=== PATIENT | female | born 1970 | race Caucasian/White ===

== ENCOUNTER → 2017-09-06 | Emergency (ER) | payer OTHER, MEDICARE, MEDICAID ==
[~2017-09-06] VITALS: Ht 167.6 cm; Wt 54.4 kg
[~2017-09-06] MED LIST: ALBUTEROL2.5 MG/NEB IN; AMANTADINE HCL100 MG PO; BACTRIM DS 8001 TA1 PO; BENADRYL 25MG C25 MG PO; CITALOPRAM20 MG PO; CITALOPRAM40 MG PO; CLARITIN 10MG T10 MG PO; CLEOCIN HCL300 MG PO; DEPO-PROVER150 MG/M1 IM; DOCUSATE SODIUM1 TAB PO; GAVISCON 6180 ML/BOT PO; IMODIUM 2MG. CAP2 MG PO; MIRALAX17 GM/PACK PO; MULTI VITAMINS1 TA1 PO; ONDANSETRON8 M1 PO; PHENERGAN 25MG.25 M1 PO; PRILOSEC40 MG PO; RISPERDAL0.5 MG PO; SENNA LAXATIVE8.6 MG PO; TRAMADOL 50MG T50 M1 PO; XENAZINE25 MG PO; ZANTAC 150150 MG PO
--- NOTE | 2017-09-06 21:47 | Emergency Room Report ---
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 N Clinical Suspician of Infection? N Mental Status: 1 - Regular (Normal Baseline) Sepsis Risk:Low Sepsis Risk Have you (or family members/close friends) recently traveled outside the [place]? N If Yes, where/when: Have you had exposure to infectious disease within the past month? N TB? Other? Specify: ALLERGIES Coded Allergies: codeine (I-RASH 05/07/16) Home Medications Active Scripts Clindamycin Hcl (Cleocin 300MG Capsule) 300 MG PO TID #30 CAP Prov: 05/11/16 SULFAMETHOXAZOLE W/TRIMETHOPRI (Bactrim Ds Tab) 1 TAB PO BID #20 TAB Prov: 05/11/16 Risperidone (Risperdal) 1 MG PO BID #60 TAB Ref 1 Prov: 05/11/16 Reported Medications MAG CARB/AL HYDROX/ALGINIC AC (Acid Gone Antacid Liquid) 30 ML PO Q4HP PRN INDIGESTION Diphenhydramine Hcl (Benadryl 25MG CAP) 25 MG PO Q4HP Polyethylene Glycol 3350 (Miralax) 17 GM PO DAILYP TRAMADOL HCL (Tramadol) 50 MG PO Q6HP PRN PAIN AMANTADINE HCL (Amantadine) 200 MG PO DAILY CITALOPRAM HYDROBROMIDE (Citalopram HBr) 40 MG PO DAILY SENNOSIDES/DOCUSATE SODIUM (Senna-Docusate Sodium Tablet) 1 TAB PO BID Loratadine (Claritin 10MG) 10 MG PO DAILY MULTIVITAMIN (One Daily Multivitamin) 1 TAB PO DAILY Omeprazole (Prilosec 40mg Cap) 40 MG PO BID Ranitidine Hcl (Zantac) 150 MG PO BID Tetrabenazine (Xenazine) 25 MG PO TID Loperamide Hcl (Loperamide) 2 MG PO Q6HP PRN UNKNOWN Promethazine Hydrochloride (Phenergan 25MG Tab) 25 MG PO Q4HP PRN NAUSEA Medroxyprogesterone Acetate (Depo-Provera) 150 MG IM Q3 MONTHS ONDANSETRON HCL (Ondansetron) 8 MG PO TID History Medical History General CAD? No Angina: No [place]: No Hypertension? No Hyperlipidemia? No CHF? No DVT? No PE? No COPD? No Asthma? No Anemia? No GERD? Yes Gastric ulcers? No GI Bleed? No Hernia? No Thyroid Problems? No Hypothyroidism? No CVA? No Seizures? No Diabetes? No Renal Insuffiency? No End Stage Renal Disease? No UTI? No Stones? No BPH? No GB Disease: No Nephritic Syndrome? No Asplenia? No Hepatitis? No Sickle Cell Disease? No Arthritis? No Migraines? No Cataracts? No Glaucoma? No MRSA? No HIV? No TB? No Anxiety? No Depression? No Cancer? Yes More? 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 Respiratory denies cough, denies shortness of breath, denies wheezing Cardiovascular denies chest pain, denies syncope Gastrointestinal denies abdominal pain, denies diarrhea, denies vomiting Genitourinary denies: dysuria. Musculoskeletal denies back pain, denies joint pain, denies joint swelling, denies neck pain Skin denies rash Psychiatric/Neurological denies headache, denies seizure Physical Exam Vital Signs Vital Signs Date Time Temp Pulse Resp B/P Pulse O2 O2 Flow FiO2 Ox Delivery Rate 09/06 2152 91 18 159/108 99 09/06 2108 98.1 98 18 153/109 99 - WBC >12,000 or <4,000 or 10% bands? 2 or more SIRS Criteria Met? B/P:159/108 MAP:123 Creatinine >2.0? UA output<0.5ml/kg/hr for 2 hrs? Platelet count >100,000? Lactate >2.0mmol/1? INR >1.2 or PTT > than 60 sec? Evidence of Organ Dysfunction? Provider documented clinical suspician of infection? N Sepsis Criteria Count: 1 Sepsis Risk: Low Sepsis Risk General Appearance no apparent distress Eye Exam - bilateral eye PERRL, bilateral eye EOMI Ear, Nose, Throat gingival disease Neck non-tender Respiratory Status No: respiratory distress. Lung Sounds bilateral: lungs clear. 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 No Results/Orders Current Medication Orders Sig/Best Start time Last Medication Dose Route Stop Time Status Admin Lidocaine HCl 0 .STK-MED ONE 09/065 DC .ROUTE Procedures Laceration/Wound Repair Laceration/Wound Repair Risks/benefits discussed with pt/guardian? Yes Tetanus status up to date Wound Location lip Wound Length (cm) 1 Wound's Depth, Shape irregular Wound Explored no FB identified Risk of retained FB explained to pt/guardian? Yes Irrigated w/ Saline (ccs) 0 Wound Prep Hibiclens, Saline Anesthesia 1% Lidocaine, Local Volume Anesthetic (ccs) 1 Wound Debrided none Wound Repaired With sutures Suture Size/Type 5:0, Vicryl Layer Closure No Total Number Sutures 6 Sterile Dressing Applied No Splint Applied No Sling Applied No Departure Departure Time of Disposition 2346 Disposition DC Home or Self Care(routine) Clinical Impression Primary Impression: Lip laceration Qualifiers: Encounter type: initial encounter Qualified Code: S01.511A - Laceration without foreign body of lip, initial encounter Secondary Impressions: Alpha's chorea Condition STABLE Patient Instructions DI for Laceration Repair Additional Instructions recheck with pcp if any problems Discharge Counseling Counseled pt/family regarding diagnosis, follow up needs ED Critical Care Critical Care No at 2351
[2017-09-07 00:09] VITALS: BP 133/65
--- OUTSIDE RECORDS SUMMARY | 2017-09-07 22:32 | External Medical Summary Rpt | CCD ---
Author Author , MIHAI Organization [place]HAI Address Unknown Phone [email or web address] Care Team Providers Care Boat Detailer Name Role Phone RAKESH RAKESH SHI CHA Unavailable Unavailable [facility], [facility] Unavailable Unavailable [facility], [facility] Unavailable Unavailable ASSOC[facility], [facility] ARNOLD, ARNOLD Unavailable Unavailable ARNOLD TRINA, ARNOLD Unavailable Unavailable TRINA BESSON TERESA, BESSON Unavailable Unavailable TERESA MILLARD ALL, MILLARD ALL Unavailable Unavailable JUDY MAC, JUDY Unavailable Unavailable MAC NEWBY KEESHA, NEWBY Unavailable Unavailable KEESHA [facility] Unavailable Unavailable SERVICE, [facility] Unavailable Unavailable SERVICE, [facility] Unavailable [facility]available [facility], [facility], Unavailable [facility]available [facility], Unavailable Unavailable [facility] Unavailable Unavailable TRANSP[facility]ATION [facility], [facility] GUILIANI LATONIA, Unavailable Unavailable GUILIANI LATONIA [facility] Unavailable Unavailable INC, [facility] Unavailable Unavailable HOSPITAL P, [facility], [facility]available Unavailable [facility] Unavailable Unavailable IM[facility]ING [facility], [facility], [facility] Un[facility]available [facility] LLC[facility] Unavailable [facility] Unavailable Unavailable [facility], Unavailable Unavailable PLLC, [facility], Unavailable [facility]available [facility], Unavailable Unavailable [facility], Unavailable Unavailable [facility] SKRIP JR., SKRIP JR. Unavailable Unavailable SKRIP JR. TRINA, SKRIP Unavailable Unavailable JR. TRINA JOSE ALBERTO SHE, Unavailable Unavailable JOSE ALBERTO SHE JOSE ALBERTO VO, Unavailable Unavailable JOSE ALBERTO VO [facility] Unavailable Unavailable [facility] [place] [facility], Unavailable Unavailable [facility] ANGEL TIM Unavailable Unavailable DREW CASTRO WALKER FOR, WALKER Unavailable Unavailable FOR Purpose Continuity of Care Document - 02-25-2015 through 2016 Problems Code Diagnosis DOS Provider Status G10 [place] 07-26-2017 [facility] J309 ALLERGIC 07-26-2017 [facility] UNSPECIFIED [id number] OTHER LONG 07-10-2017 [facility] CURRENT DRUG THERAPY [id number] PAIN IN 06-11-2017 [facility] RIGHT ELBOW [facility] B351 TINEA 05-27-2017 [facility] [place] [id number] PAIN IN 05-27-2017 [facility] [place] [id number] PAIN IN 05-27-2017 [facility] [place] M6281 MUSCLE 02-25-2017 [facility] R4182 ALTERED 09-26-2016 [facility] UNSPECIFIED E870 HYPEROSMOLA 05-16-2016 [facility] [place]ATES [place] M66513 PAIN IN 05-15-2016 [facility] LEFT KNEE [facility] R918 OTHER 05-08-2016 [place] [facility]SPECIFIC [facility]NORMAL [facility] ASS FINDING OF LUNG FIELD E46 UNSPECIFIED 05-07-2016 [facility] P ORIE MALNUTRITIO N J189 PNEUMONIA 05-07-2016 [facility] P R0989 OTH SPEC SX 05-07-2016 [place] & SIGNS [facility]ICAL INVLV THE IMAGING ASS CIRC & RESP SYS R509 FEVER 05-07-2016 [facility]NSPEC[facility]IED [facility], PLL[facility] R58 HEMORRHAGE 05-07-2016 [facility] ELSEWHERE SERVICE CLASSIFIED R64 CACHEXIA 05-07-2016 [facility] Z681 BODY MASS 05-07-2016 [facility] INDEX 19.9 [facility] OR LESS INC ADULT R69 ILLNESS 04-12-2016 [facility] UNSPECIFIED TRANSPORTAT ION SER Z9689 PRESENCE OF 04-12-2016 [place] [facility] OTHER SERV SPECIFIED [facility] FUNCTIONAL IMPLANTS K219 GASTRO-ESOP 03-22-2016 [facility] DISEASE WITHOUT ESOPHAGITIS R1310 DYSPHAGIA 03-22-2016 [facility] Z4542 ENCOUNTER 03-22-2016 [place] [facility] MANAGEMENT NEUROPACEMA KER J690 PNEUMONITIS 02-03-2016 [facility] DUE TO LLC INHALATION OF FOOD AND VOMIT H5213 MYOPIA 01-30-2016 [facility] H524 PRESBYOPIA 01-30-2016 [facility] PLL Z4549 ENCOUNTER 01-19-2016 [facility] NS DEVICE Z9889 OTHER 01-19-2016 [facility] POSTPROCEDU RAL STATES R262 DIFFICULTY 10-13-2015 [facility] NOT ELSEWHERE CLASSIFIED R51 HEADACHE 10-12-2015 [facility] [id number] CONTUSION 10-12-2015 [facility] OTHER PART [facility] OF HEAD INC INITIAL ENCOUNTER I06DISW UNSPECIFIED 10-12-2015 [facility] INITIAL SERVICE ENCOUNTER R8290 UNSPECIFIED 09-30-2015 [facility] FINDINGS IN ASSOCIATES URINE 33582 ABDOMINAL 08-16-2015 [facility] PAIN, ANESTH OF UNSPECIFIED THE BLUE SITE 74510 ABDOMINAL 08-16-2015 [facility] PAIN, [facility] 58586 UNSPECIFIED 08-12-2015 [facility] N 5920 CALCULUS OF 08-12-2015 [facility] 38814 NAUSEA 08-12-2015 [facility] 37154 ABDOMINAL 08-12-2015 [facility] PAIN, [facility] PERIUMBILIC INC 73630 ABDOMINAL 08-12-2015 [place] [facility] OTHER MEDICAL SPECIFIED IMAGING ASS SITE 37344 ABDOMINAL 08-11-2015 [facility] PAIN, [facility] GENERALIZED INC 50588 08-11-2015 [facility] TRANSPORTAT ION SER 80253 SHORTNESS 08-01-2015 [facility] OF BREATH LLC 3334 [place] 07-26-2015 [facility] V762 SCREENING 07-08-2015 [facility] MALIGNANT NEOPLASM OF THE CERVIX 9962 [facility] COMP 03-30-2015 [place] [facility] SYSTEM DEVICE IMPLANT&GRA FT V5302 NEUROPACEMA 03-30-2015 [facility] 4779 ALLERGIC 03-22-2015 [facility] CAUSE UNSPECIFIED 50172 ESOPHAGEAL 03-22-2015 [facility] 41169 ATROPHIC 03-22-2015 [facility] WITHOUT MENTION OF HEMORRHAGE 36134 OTHER SPEC 03-22-2015 [facility] WITHOUT MENTION HEMORRHAGE 39230 LOSS OF 03-22-2015 [facility] 45451 DIARRHEA 03-22-2015 [facility] V4589 OTHER 03-10-2015 [facility] STATUS OTHER V719 OBSERVATION 03-10-2015 [place] [facility] FOR SERV UNSPECIFIED [facility] SUSPECTED CONDITION 09107 DYSPHAGIA 03-09-2015 [place] [facility]PEC[facility] Medications Na ND Rx Da Fi Fi Am Da Di Ph RX Ph St me C No te ll ll ou ys ag ar # ys at rm s nt no ma ic us Or Da si cy ia de te s n re d RE 53 07 10 0 11 10 ME 15 GA Ac ME 32 -2 -0 30 D 08 IN ti DY 90 5- 7- .0 CA 90 EY ve 16 20 20 00 RE 50 CA 54 17 17 NE LA 4 PH CH ZI AR AE ME MA L CY S RI OT LL EC C T PA ST E ME 00 04 09 0 30 30 ME 14 GA Ac LA 90 -0 -2 0. D 99 IN ti TO 45 2- 3- 00 CA 65 EY ve NI 18 20 20 0 RE 64 N 25 17 17 NE 3 2 PH CH MG AR AE MA L TA CY S BL ET LL C SE 00 03 09 0 60 30 ME 14 GA Ac NE 53 -1 -2 0. D 99 IN ti XO 64 9- 2- 00 CA 01 EY ve N- 08 20 20 0 RE 49 S 60 17 17 NE TA 1 PH CH BL AR AE ET MA L CY S LL C ST 00 11 09 0 30 30 ME 14 GA Ac OO 53 -0 -2 0. D 97 IN ti L 61 2- 0- 00 CA 27 EY ve SO 06 20 20 0 RE 11 FT 41 16 17 NE EN 0 PH CH ER AR AE MA L 25 CY S 0 MG LL C SO FT GE L LO 00 06 09 0 30 30 ME 14 GA Ac RA 78 -1 -1 0. D 98 IN ti TA 15 7- 9- 00 CA 35 EY ve DI 07 20 20 0 RE 58 NE 70 17 17 NE 1 PH CH 10 AR AE MA L MG CY S TA LL BL C ET TA 00 03 09 0 30 30 ME 14 GA Ac B- 90 -1 -1 0. D 97 IN ti A- 40 9- 8- 00 CA 40 EY ve 53 20 20 0 RE 84 TE 08 17 17 NE 0 PH CH TA AR AE BL MA L ET CY S LL C LO 00 06 08 0 30 30 ME 14 GA Ac RA 78 -1 -2 0. D 82 IN ti TA 15 7- 5- 00 CA 83 EY ve DI 07 20 20 0 RE 92 NE 70 17 17 NE 1 PH CH 10 AR AE MA L MG CY S TA LL BL C ET ME 00 04 08 0 30 30 ME 14 GA Ac LA 90 -0 -2 0. D 82 IN ti TO 45 2- 5- 00 CA 84 EY ve NI 18 20 20 0 RE 00 N 25 17 17 NE 3 2 PH CH MG AR AE MA L TA CY S BL ET LL C SE 00 03 08 0 60 30 ME 14 GA Ac NE 53 -1 -2 0. D 81 IN ti XO 64 9- 3- 00 CA 13 EY ve N- 08 20 20 0 RE 71 S 60 17 17 NE TA 1 PH CH BL AR AE ET MA L CY S LL C TA 00 03 08 0 30 30 ME 14 GA Ac B- 90 -1 -2 0. D 80 IN ti A- 40 9- 1- 00 CA 08 EY ve 53 20 20 0 RE 41 TE 08 17 17 NE 0 PH CH TA AR AE BL MA L ET CY S LL C ST 00 11 07 0 30 30 ME 14 GA Ac OO 53 -0 -3 0. D 68 IN ti L 61 2- 1- 00 CA 05 EY ve SO 06 20 20 0 RE 89 FT 41 16 17 NE EN 0 PH CH ER AR AE MA L 25 CY S 0 MG LL C SO FT GE L LO 00 06 07 0 30 30 ME 14 GA Ac RA 78 -1 -2 0. D 66 IN ti TA 15 7- 8- 00 CA 70 EY ve DI 07 20 20 0 RE 12 NE 70 17 17 NE 1 PH CH 10 AR AE MA L MG CY S TA LL BL C ET ME 00 04 07 0 30 30 ME 14 GA Ac LA 90 -0 -2 0. D 66 IN ti TO 45 2- 8- 00 CA 70 EY ve NI 18 20 20 0 RE 20 N 25 17 17 NE 3 2 PH CH MG AR AE MA L TA CY S BL ET LL C RE 53 07 07 0 11 10 ME 14 GA Ac ME 32 -2 -2 30 D 66 IN ti DY 90 5- 5- .0 CA 34 EY ve 16 20 20 00 RE 44 CA 54 17 17 NE LA 4 PH CH ZI AR AE ME MA L CY S RI OT LL EC C T PA ST E SE 00 03 07 0 60 30 ME 14 GA Ac NE 53 -1 -2 0. D 64 IN ti XO 64 9- 4- 00 CA 20 EY ve N- 08 20 20 0 RE 99 S 60 17 17 NE TA 1 PH CH BL AR AE ET MA L CY S LL C TA 00 03 07 0 30 30 ME 14 GA Ac B- 90 -1 -2 0. D 65 IN ti A- 40 9 4- 00 CA 17 EY ve 53 20 20 0 RE 52 TE 08 17 17 NE 0 PH CH TA AR AE BL MA L ET CY S LL C ST 00 11 07 0 30 30 ME 14 GA Ac OO 53 -0 -0 0. D 50 IN ti L 61 2- 3- 00 CA 60 EY ve SO 06 20 20 0 RE 20 FT 41 16 17 NE EN 0 PH CH ER AR AE MA L 25 CY S 0 MG LL C SO FT GE L LO 00 06 07 0 30 30 ME 14 GA Ac RA 78 -1 -0 0. D 50 IN ti TA 15 7- 00 CA 60 EY ve DI 07 20 20 0 RE 12 NE 70 17 17 NE 1 PH CH 10 AR AE MA L MG CY S TA LL BL C ET ME 00 04 07 0 30 30 ME 14 GA Ac LA 90 -0 -0 0. D 50 IN ti TO 45 2- 1- 00 CA 60 EY ve NI 18 20 20 0 RE 31 N 25 17 17 NE 3 2 PH CH MG AR AE MA L TA CY S BL ET LL C SE 00 03 06 0 60 30 ME 14 GA Ac NE 53 -1 -2 0. D 47 IN ti XO 64 9- 6- CA 35 EY ve N- 08 20 20 0 RE 41 S 60 17 17 NE TA 1 PH CH BL AR AE ET MA L CY S LL C TA 00 03 06 0 30 30 ME 14 GA Ac B- 90 -1 -2 0. D 45 IN ti A- 40 9 6- CA 93 EY ve 53 20 20 0 RE 04 TE 08 17 17 NE 0 PH CH TA AR AE BL MA L ET CY S LL C ST 00 11 06 0 14 14 ME 14 GA Ac OO 53 -0 -2 0. D 42 IN ti L 61 2- 0- 00 CA 50 EY ve SO 06 20 20 0 RE 63 FT 41 16 17 NE EN 0 PH CH ER AR AE MA L 25 CY S 0 MG LL C SO FT GE L LO 00 06 06 0 14 14 ME 14 GA Ac RA 78 -1 -1 0. D 41 IN ti TA 15 7- 9- 00 CA 58 EY ve DI 07 20 20 0 RE 41 NE 70 17 17 NE 1 PH CH 10 AR AE MA L MG CY S TA LL BL C ET ME 00 04 06 0 14 14 ME 14 GA Ac LA 90 -0 -1 0. D 41 IN ti TO 45 2- 9- 00 CA 58 EY ve NI 18 20 20 0 RE 47 N 25 17 17 NE 3 2 PH CH MG AR AE MA L TA CY S BL ET LL C BA 00 05 06 0 28 4 ME 12 AR Ac CI 16 -2 -1 3. D 53 NO ti TR 80 5- 3- 50 CA 97 LD ve AC 02 20 20 0 RE 60 IN 13 16 16 RI -P 1 PH CH OL AR AR YM MA D YX CY W IN LL OI C NT ME NT HY 00 05 06 0 28 5 ME [address] 60 -2 -1 4. D 53 NO ti OC 30 5- 3- 00 CA 97 LD ve OR 53 20 20 0 RE 65 TI 55 16 16 RI SO 0 PH CH NE AR AR MA D 1% CY W CR LL EA C M LO 45 03 06 0 30 30 ME 12 AR Ac RA 80 -1 -1 0. D 53 NO ti TA 20 9- 1- 00 CA 07 LD ve DI 65 20 20 0 RE 65 NE 08 16 16 RI 7 PH CH 10 AR AR MA D MG CY W TA LL BL C ET BA 00 05 06 0 28 4 ME 12 AR Ac CI 16 -2 -0 3. D 51 NO ti TR 80 5- 6- 50 CA 72 LD ve AC 02 20 20 0 RE 61 IN 13 16 16 RI -P 1 PH CH OL AR AR YM MA D YX CY W IN LL OI C NT ME NT ZI 00 05 06 0 56 3 ME 12 AR Ac NC 16 -2 -0 7. D 51 NO ti 80 5- 6- 00 CA 72 LD ve OX 06 20 20 0 RE 31 ID 20 16 16 RI E 2 PH CH 20 AR AR % MA D OI CY W NT ME LL NT C HY 00 05 06 0 28 5 ME [address] 60 -2 -0 4. D 51 NO ti OC 30 5- 6- 00 CA 72 LD ve OR 53 20 20 0 RE 54 TI 55 16 16 RI SO 0 PH CH NE AR AR MA D 1% CY W CR LL EA C M TA 00 03 06 0 30 30 ME 12 AR Ac B- 90 -1 -0 0. D 50 NO ti A- 40 9- 4- 00 CA 84 LD ve 53 20 20 0 RE 90 TE 08 16 16 RI 0 PH CH TA AR AR BL MA D ET CY W LL C BA 00 05 06 0 28 7 ME 12 AR Ac CI 16 -2 -0 3. D 50 NO ti TR 80 5- 2- 50 CA 59 LD ve AC 02 20 20 0 RE 98 IN 13 16 16 RI -P 1 PH CH OL AR AR YM MA D YX CY W IN LL OI C NT ME NT SE 63 05 05 0 60 30 ME 12 AR Ac NN 73 -0 -3 0. D 49 NO ti A- 90 3- 1- 00 CA 35 LD ve TI 43 20 20 0 RE 58 ME 20 16 16 RI S 1 PH CH AR AR TA MA D BL CY W ET LL C HY 00 05 05 0 28 5 ME [address] 60 -2 -3 4. D 49 NO ti OC 30 5- 0- 00 CA 40 LD ve OR 53 20 20 0 RE 25 TI 55 16 16 RI SO 0 PH CH NE AR AR MA D 1% CY W CR LL EA C M ZI 00 05 05 0 56 3 ME 12 AR Ac NC 16 -2 -2 7. D 49 NO ti 80 5- 8- 00 CA 06 LD ve OX 06 20 20 0 RE 97 ID 20 16 16 RI E 2 PH CH 20 AR AR % MA D OI CY W NT ME LL NT C HY 00 05 05 0 28 15 ME [address] 60 -2 -2 4. D 47 NO ti OC 30 5- 5- 00 CA 75 LD ve OR 53 20 20 0 RE 40 TI 55 16 16 RI SO 0 PH CH NE AR AR MA D 1% CY W CR LL EA C M BA 00 05 05 0 28 15 ME 12 AR Ac CI 16 -2 -2 3. D 47 NO ti TR 80 5- 5- 50 CA 75 LD ve AC 02 20 20 0 RE 48 IN 13 16 16 RI -P 1 PH CH OL AR AR YM MA D YX CY W IN LL OI C NT ME NT ZI 00 05 05 0 28 15 ME 12 AR Ac NC 16 -2 -2 3. D 47 NO ti 80 5- 5- 50 CA 75 LD ve OX 06 20 20 0 RE 23 ID 23 16 16 RI E 1 PH CH 20 AR AR % MA D OI CY W NT ME LL NT C LO 45 03 05 0 30 30 ME 12 AR Ac RA 80 -1 -1 0. D 42 NO ti TA 20 9- 3- 00 CA 93 LD ve DI 65 20 20 0 RE 78 NE 08 16 16 RI 7 PH CH 10 AR AR MA D MG CY W TA LL BL C ET TA 00 03 05 0 30 30 ME 12 AR Ac B- 90 -1 -0 0. D 40 NO ti A- 40 9- 6- 00 CA 53 LD ve 53 20 20 0 RE 66 TE 08 16 16 RI 0 PH CH TA AR AR BL MA D ET CY W LL C SE 63 05 05 0 60 30 ME 12 AR Ac NN 73 -0 -0 0. D 39 NO ti A- 90 3- 3- 00 CA 75 LD ve TI 43 20 20 0 RE 45 ME 20 16 16 RI S 1 PH CH AR AR TA MA D BL CY W ET LL C BI 00 04 04 0 10 10 ME 12 AR Ac SC 90 -2 -2 0. D 35 NO ti OL 45 2- 2- 00 CA 72 LD ve AX 05 20 20 0 RE 87 86 16 16 RI 10 0 PH CH AR AR MG MA D CY W SHER PP LL OS C IT OR Y RE 53 04 04 0 11 15 ME 12 AR Ac ME 32 -1 -1 30 D 33 NO ti DY 90 4- 4- .0 CA 20 LD ve 16 20 20 00 RE 24 CA 44 16 16 RI LA 4 PH CH ZI AR AR ME MA D CY W RI OT LL EC C T PA ST E LO 45 03 04 0 30 30 ME 12 AR Ac RA 80 -1 -1 0. D 32 NO ti TA 20 9- 3- 00 CA 31 LD ve DI 65 20 20 0 RE 61 NE 08 16 16 RI 7 PH CH 10 AR AR MA D MG CY W TA LL BL C ET TA 00 03 04 0 30 30 ME 12 AR Ac B- 90 -1 -0 0. D 29 NO ti A- 40 9- 6- 00 CA 99 LD ve 53 20 20 0 RE 07 TE 08 16 16 RI 0 PH CH TA AR AR BL MA D ET CY W LL C LO 45 06 03 0 30 30 ME 12 AR Ac RA 80 -2 -1 0. D 22 NO ti TA 20 5- 4- 00 CA 25 LD ve DI 65 20 20 0 RE 86 NE 08 15 16 RI 7 PH CH 10 AR AR MA D MG CY W TA LL BL C ET TA 00 04 03 0 30 30 ME 12 AR Ac B- 90 -0 -0 0. D 19 NO ti A- 40 3- 7- 00 CA 91 LD ve 53 20 20 0 RE 92 TE 08 15 16 RI 0 PH CH TA AR AR BL MA D ET CY W LL C LO 45 06 02 0 30 30 ME 12 AR Ac RA 80 -2 -1 0. D 12 NO ti TA 20 5- 3- 00 CA 09 LD ve DI 65 20 20 0 RE 12 NE 08 15 16 RI 7 PH CH 10 AR AR MA D MG CY W TA LL BL C ET DI 00 06 02 0 30 7 ME 12 AR Ac PH 60 -0 -0 0. D 10 NO ti EN 33 1- 9- 00 CA 94 LD ve HY 33 20 [address] 93 15 16 RI AM 2 PH CH IN AR AR E MA D 25 CY W MG LL C CA PS UL E TA 00 04 02 0 30 30 ME 12 AR Ac B- 90 -0 -0 0. D 09 NO ti A- 40 3- 6- 00 CA 63 LD ve 53 20 20 0 RE 57 TE 08 15 16 RI 0 PH CH TA AR AR BL MA D ET CY W LL C LO 45 06 01 0 30 30 ME 12 AR Ac RA 80 -2 -1 0. D 02 NO ti TA 20 5- 5- 00 CA 07 LD ve DI 65 20 20 0 RE 33 NE 08 15 16 RI 7 PH CH 10 AR AR MA D MG CY W TA LL BL C ET TA 00 04 01 0 30 30 ME 11 AR Ac B- 90 -0 -0 0. D 99 NO ti A- 40 3- 8- 00 CA 94 LD ve 53 20 20 0 RE 89 TE 08 15 16 RI 0 PH CH TA AR AR BL MA D ET CY W LL C LO 45 06 12 0 30 30 ME 11 AR Ac RA 80 -2 -1 0. D 93 NO ti TA 20 5- 6- 00 CA 32 LD ve DI 65 20 20 0 RE 45 NE 08 15 15 RI 7 PH CH 10 AR AR MA D MG CY W TA LL BL C ET TA 00 04 12 0 30 30 ME 11 AR Ac B- 90 -0 -1 0. D 92 NO ti A- 40 3- 1- 00 CA 52 LD ve 53 20 20 0 RE 95 TE 08 15 15 RI 0 PH CH TA AR AR BL MA D ET CY W LL C MA 00 11 11 0 30 7 ME 11 AR Ac PA 90 -2 -2 0. D 86 NO ti P 41 0- 0- 00 CA 23 LD ve 50 98 20 20 0 RE 16 0 86 15 15 RI MG 1 PH CH AR AR TA MA D BL CY W ET LL C LO 45 06 11 0 30 30 ME 11 AR Ac RA 80 -2 -1 0. D 85 NO ti TA 20 5- 8- 00 CA 27 LD ve DI 65 20 20 0 RE 16 NE 08 15 15 RI 7 PH CH 10 AR AR MA D MG CY W TA LL BL C ET TA 00 04 11 0 30 30 ME 11 AR Ac B- 90 -0 -1 0. D 84 NO ti A- 40 3- 4- 00 CA 02 LD ve 53 20 20 0 RE 29 TE 08 15 15 RI 0 PH CH TA AR AR BL MA D ET CY W LL C TA 00 04 11 0 10 1 ME 11 AR Ac B- 90 -0 -1 .0 D 84 NO ti A- 40 3- 3- 00 CA 30 LD ve 53 20 20 RE 81 TE 08 15 15 RI 0 PH CH TA AR AR BL MA D ET CY W LL C LO 45 06 11 0 10 1 ME 11 AR Ac RA 80 -2 -1 .0 D 84 NO ti TA 20 5- 3- 00 CA 30 LD ve DI 65 20 20 RE 82 NE 08 15 15 RI 7 PH CH 10 AR AR MA D MG CY W TA LL BL C ET LO 45 06 10 0 30 30 ME 11 AR Ac RA 80 -2 -2 0. D 76 NO ti TA 20 5- 1- 00 CA 44 LD ve DI 65 20 20 0 RE 12 NE 08 15 15 RI 7 PH CH 10 AR AR MA D MG CY W TA LL BL C ET TA 00 04 10 0 30 30 ME 11 AR Ac B- 90 -0 -1 0. D 75 NO ti A- 40 3- 6- 00 CA 02 LD ve 53 20 20 0 RE 68 TE 08 15 15 RI 0 PH CH TA AR AR BL MA D ET CY W LL C DI 00 06 10 0 30 7 ME 11 AR Ac PH 60 -0 -0 0. D 71 NO ti EN 33 1- 5- 00 CA 83 LD ve HY 33 20 [address] 93 15 15 RI AM 2 PH CH IN AR AR E MA D 25 CY W MG LL C CA PS UL E LO 45 06 09 0 30 30 ME 11 AR Ac RA 80 -2 -2 0. D 67 NO ti TA 20 5- 1- 00 CA 03 LD ve DI 65 20 20 0 RE 02 NE 08 15 15 RI 7 PH CH 10 AR AR MA D MG CY W TA LL BL C ET TA 00 04 09 0 30 30 ME 11 AR Ac B- 90 -0 -1 0. D 65 NO ti A- 40 3- 7- 00 CA 99 LD ve 53 20 20 0 RE 56 TE 08 15 15 RI 0 PH CH TA AR AR BL MA D ET CY W LL C AC 00 09 09 0 35 15 ME 11 AR Ac ID 90 -0 -0 50 D 63 NO ti 47 7- 7- .0 CA 31 LD ve GO 72 20 20 00 RE 80 NE 71 15 15 RI 4 PH CH AN AR AR TA MA D CI CY W D LI LL QU C ID LO 45 06 08 0 30 30 ME 11 AR Ac RA 80 -2 -2 0. D 58 NO ti TA 20 5- 2- 00 CA 08 LD ve DI 65 20 20 0 RE 71 NE 08 15 15 RI 7 PH CH 10 AR AR MA D MG CY W TA LL BL C ET TA 00 04 08 0 30 30 ME 11 AR Ac B- 90 -0 -1 0. D 56 NO ti A- 40 3- 8- 00 CA 67 LD ve 53 20 20 0 RE 65 TE 08 15 15 RI 0 PH CH TA AR AR BL MA D ET CY W LL C DI 00 06 08 0 30 7 ME 11 AR Ac PH 60 -0 -0 0. D 52 NO ti EN 33 1- 3- 00 CA 24 LD ve HY 33 20 [address] 93 15 15 RI AM 2 PH CH IN AR AR E MA D 25 CY W MG LL C CA PS UL E LO 45 06 07 0 30 30 ME 11 AR Ac RA 80 -2 -2 0. D 49 NO ti TA 20 5- 4- 00 CA 14 LD ve DI 65 20 20 0 RE 67 NE 08 15 15 RI 7 PH CH 10 AR AR MA D MG CY W TA LL BL C ET TA 00 04 07 0 30 30 ME 11 AR Ac B- 90 -0 -2 0. D 48 NO ti A- 40 3- 1- 00 CA 20 LD ve 53 20 20 0 RE 02 TE 08 15 15 RI 0 PH CH TA AR AR BL MA D ET CY W LL C LO 45 06 06 0 30 30 ME 11 AR Ac RA 80 -2 -2 0. D 40 NO ti TA 20 5- 6- 00 CA 79 LD ve DI 65 20 20 0 RE 84 NE 08 15 15 RI 7 PH CH 10 AR AR MA D MG CY W TA LL BL C ET TA 00 04 06 0 30 30 ME 11 AR Ac B- 90 -0 -2 0. D 40 NO ti A- 40 3- 5- 00 CA 50 LD ve 53 20 20 0 RE 82 TE 08 15 15 RI 0 PH CH TA AR AR BL MA D ET CY W LL C DI 00 06 06 0 30 7 ME 11 AR Ac PH 60 -0 -0 0. D 33 NO ti EN 33 1- 1- 00 CA 27 LD ve HY 33 20 [address] 93 15 15 RI AM 2 PH CH IN AR AR E MA D 25 CY W MG LL C CA PS UL E TA 00 04 05 0 30 30 ME 11 AR Ac B- 90 -0 -3 0. D 32 NO ti A- 40 3- 0- 00 CA 75 LD ve 53 20 20 0 RE 38 TE 08 15 15 RI 0 PH CH TA AR AR BL MA D ET CY W LL C TA 00 04 05 0 30 30 ME 11 AR Ac B- 90 -0 -0 0. D 23 NO ti A- 40 3- 1- 00 CA 15 LD ve 53 20 20 0 RE 88 TE 08 15 15 RI 0 PH CH TA AR AR BL MA D ET CY W LL C LO 45 04 04 0 30 30 ME 11 AR Ac RA 80 -1 -2 0. D 19 NO ti TA 20 8- 0- 00 CA 68 LD ve DI 65 20 20 0 RE 04 NE 08 15 15 RI 7 PH CH 10 AR AR MA D MG CY W TA LL BL C ET TA 00 04 04 0 30 30 ME 11 AR Ac B- 90 -0 -0 0. D 15 NO ti A- 40 3- 3- 00 CA 31 LD ve 53 20 20 0 RE 05 TE 08 15 15 RI 0 PH CH TA AR AR BL MA D ET CY W LL C Procedures Procedure DOS Code Location Performer Comment ECG [id number] [facility] ROUTINE 7 [facility] ECG W/LEAST 12 LDS TRCG ONLY W/O I&R RADEX 75042 [facility] VIEWS TRANS R0070 [facility] PRTBL 7 [facility] X-RAY EQP&PERS PEDRO/NRS PEDRO-TRIP 1 PT SET-UP Q0092 PORTRASHID [facility] PORTABLE 7 [facility] X-RAY EQUIPMENT DEBRIDEME 23312 SPECIAL SKRIP JR. NT NAIL 7 CARE ANY PODIATRY METHOD OF [place] 6/> DEBRIDEME 46126 SPECIAL SKRIP JR. NT NAIL 7 CARE ANY PODIATRY METHOD OF [place] 6/> TRAVEL [id number] HEALTH NEC MANAGER COMMERCIAL ASSOCIATE SPEC; S S PRORAT ACTL MILE COMPREHEN [id number] METABOLIC ASSOCIATE ASSOCIATE PANEL S S SBSQ 15177 [facility] FACILITY CARE/DAY E/M STABLE 10 MIN BLOOD [id number] HEALTH COMPLETE ASSOCIATE ASSOCIATE AUTOMATED S S [place] V G0471 [address] HEALTH CONTRACTS ADMINISTRATOR/URN ASSOCIATE ASSOCIATE SMP CATH S S IND SNF/LAB BHALF IDENTIFIER HORSE [place] V G0471 [address] HEALTH CONTRACTS ADMINISTRATOR/URN ASSOCIATE ASSOCIATE SMP CATH S S IND SNF/LAB BHALF IDENTIFIER HORSE DRUG [address] HEALTH VALPROIC ASSOCIATE ASSOCIATE DIPROPYLA S S CETIC ACID TOTAL TRAVEL [id number] NEC MANAGER COMMERCIAL ASSOCIATE SPEC; S S PRORAT ACTL MILE SBSQ 10508 [facility] FACILITY CARE/DAY E/M STABLE 10 MIN DRUG [id number] VALPROIC ASSOCIATE ASSOCIATE DIPROPYLA S S CETIC ACID TOTAL TRAVEL [id number] NEC MANAGER COMMERCIAL ASSOCIATE SPEC; S S PRORAT ACTL MILE [place] V G0471 [address] HEALTH CONTRACTS ADMINISTRATOR/URN ASSOCIATE ASSOCIATE SMP CATH S S IND SNF/LAB BHALF IDENTIFIER HORSE ECG [id number] [facility] 7 [facility] ECG W/LEAST 12 LDS TRCG ONLY W/O I&R SBSQ 59561 [facility]AC[facility] CARE/DAY E/M STABLE 10 MIN DEBRIDEME 53392 SPECIAL GRETCHEN INMAN NT NAIL 7 CARE ANY PODIATRY METHOD OF MIHAI /> E/M [address] [facility] NURSING FACILITY ASSESS STABLE 30 MIN SBSQ 76042 [facility] FACILITY CARE/DAY E/M STABLE 10 MIN SBSQ 22331 [facility] FACILITY CARE/DAY E/M STABLE 10 MIN CULTURE 23727 [facility] BEL[facility]IAN BACTERIAL HEALTH HEALTH ASSOCIATE ASSOCIATE QUANTTADEBORA Walker S VE COLONY COUNT URINE URNLS DIP [id number] [facility] BELARUSIAN [address] [place] [address] HEALTH STICK/TAB ASSOCIATE ASSOCIATE LET S S REAGENT AUTO MICROSCOP Y DEBRIDEME 91572 SPECIAL GRETCHEN INMAN NT NAIL 6 CARE TRINA ANY PODIATRY METHOD OF MIHAI / SBSQ 35617 [facility] FACILITY CARE/DAY E/M STABLE 10 MIN TRAVEL 1 [phone] [facility] [place] [address] HEALTH HEALTH NEC MANAGER COMMERCIAL ASSOCIATE SPEC; S S PRORAT ACTL MILE COMPREHEN [id number] BEL[facility]IAN BEL[facility]IAN [facility] METABOLIC ASSOCIATE ASSOCIATE PANEL S S EASTON V [id number] BEL[facility]IAN BELARUSIAN BLD [facility] HEALTH CONTRACTS ADMINISTRATOR/URN ASSOCIATE ASSOCIATE REED Walker S IND SNF/LAB BHALF IDENTIFIER HORSE SBSQ 33387 [facility] TRINA FACILITY CARE/DAY E/M STABLE 10 MIN SBSQ 43903 [facility] FACILITY CARE/DAY E/M STABLE 10 MIN ECG 91104 [facility] ECG W/LEAST 12 LDS TRCG ONLY W/O I&R DEBRIDEME 14397 SPECIAL GRETCHEN INMAN NT NAIL 6 CARE TRINA ANY PODIATRY METHOD OF MIHAI /> SBSQ 27310 [facility] FACILITY CARE/DAY E/M STABLE 10 MIN BASIC 46769 [facility]IAN [facility] METABOL[facility] PANEL ASSOCIATE ASSOCIATE CALCIUM S S TOTAL TRAVEL [address] MED 6 HEALTH HEALTH NEC MANAGER COMMERCIAL ASSOCIATE SPEC; S S PRORAT ACTL MILE EASTON V G0471 BELAR[facility]IAN BELARUSIAN BLD 6 HEALTH HEALTH CONTRACTS ADMINISTRATOR/URN ASSOCIATE ASSOCIATE REED CATH S S IND SNF/LAB BHALF IDENTIFIER HORSE RADIOLOGI 92105 [facility] EXAMINATI ON KNEE 1/2 VIEWS SET-UP Q0092 [facility] X-RAY EQUIPMENT TRANS R0070 [facility] X-RAY EQP&PERS PEDRO/NRS PEDRO-TRIP 1 PT INITIAL 65614 [facility] TRINA FACILITY CARE/DAY 25 MINUTES RADIOLOGI 36103 [place] [facility] EXAM 6 MEDICAL CHELA CHEST 2 IMAGING VIEWS ASS FRONTAL&L ATERAL GROUND [id number] [facility] AMBULANCE PER SERVICE SERVICE STATUTE MILE ECG 08319 BASHIR KUMAR ROUTINE 6 [facility] W/LEAST P 12 LDS I&R ONLY RADIOLOGI 60080 [place] ALL C 6 MEDICAL EXAMINATI IMAGING ON CHEST ASS SINGLE VIEW FRONTAL AMB A0427 [facility] SERVICE 6 AMBULANCE AMBULANCE ALS SERVICE SERVICE EMERGENCY TRANSPORT LEVEL 1 SBSQ 66729 [facility] 6 [facility] FACILITY CARE/DAY E/M STABLE 10 MIN NONEMERGE A0130 [facility]ER[facility] NCY 6 TRANSPORT TRANSPORT TRANSPORT ATION: ATION SER ATION SER WHEELCHAI R [facility] G0463 [facility] 6 Y Y T [facility] HOSPITAL VISIT ASSESS & MGMT PT ELEC ZULEIMA 33018 [facility] 6 Y Y PLS [facility] H[facility] CPLX DP BRN 1ST HR SBSQ 86861 [facility] 6 [facility] FACILITY CARE/DAY E/M STABLE 10 MIN HOSPITAL G0463 [facility] 6 Y Y T [facility] VISIT ASSESS & MGMT PT ELEC ZULEIMA 55924 [place] ANGEL RUSSELL NSTIM 6 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 PLS GEN SERV SMPL FOUNDATIO SC/PERPH N [facility] G0463 [facility] 6 Y Y T [facility]ITAL HOSPITAL VISIT ASSESS & MGMT PT RADIOLOGI 74405 [facility] C 6 [facility] EXAMINATI ON CHEST SINGLE VIEW FRONTAL SET-UP Q0092 [facility] PORTABLE 6 [facility] X-RAY EQUIPMENT TRANS R0070 [facility] PRTBL 6 [facility] X-RAY EQP&PERS PEDRO/NRS PEDRO-TRIP 1 PT OPHTH 27831 [facility] 6 CONTRACT TAVO XM&EVAL [facility] NEW PT 1/> VST DETERMINA 87398 AEC ATALISSA TION 6 CONTRACT TAVO REFRACTIV [facility] E [facility] SBS 20067 [facility] FACILITY CARE/DAY E/M STABLE 10 MIN ELEC ZULEIMA 01306 [facility] 6 Y Y PLS [facility] HOSPITAL SMPL SC/PERPH [facility] G0463 [facility] 6 Y Y T [facility] HOSPITAL HOSPITAL VISIT ASSESS & MGMT PT ELEC ZULEIMA 32394 GISELA SILVA NSTIM 6 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 NT NAIL 6 CARE [facility] ANY PODIATRY METHOD OF MIHAI 6/> ECG 99438 [facility] ECG W/LEAST 12 LDS TRCG ONLY W/O I&R E/M 41075 [facility] 6 [facility] NURSING FACILITY ASSESS STABLE 30 MIN SBSQ 21998 [facility] NURSING 5 [facility] FACILITY CARE/DAY E/M STABLE 10 MIN NONEMERGE A0130 FEDERATED FEDERATED NCY 5 TRANSPORT TRANSPORT TRANSPORT ATION: ATION SER ATION SER DANIELLA Peck VAN ELEC ZULEIMA 21408 [facility] 5 Y Y PLS [facility] CPLX DP BRN 1ST HR HOSPITAL G0463 [facility] 5 Y Y T [facility] VISIT ASSESS & [place] [address] BASHIR CAMEJO HEAD/BRAI 5 [facility] N W/O INC INC CONTRAST MATERIAL INJECTION J2405 BASHIR CAMEJO 5 [facility] ONDANSETR INC INC ON HCL PER 1 MG THER 53226 BASHIR CAMEJO PROPH/DX 5 [facility] NJX IV INC INC PUSH SINGLE/1S T SBST/DRUG THERAPEUT 57468 BASHIR CAMEJO IC 5 [facility] INJECTION INC INC IV PUSH EACH NEW DRUG GROUND A0425 [facility] AMBULANCE AMBULANCE PER SERVICE SERVICE STATUTE MILE [facility] DIP 33266 BASHIR CAMEJO 5 [facility] STICK/TAB INC INC LET REAGENT AUTO MICROSCOP Y BLOOD 12768 BASHIR CAMEJO COUNT 5 [facility] COMPLETE INC INC AUTO&AUTO DIFRNTL WBC COMPREHEN 82407 BASH[facility] CAMEJO SIVE 5 [facility] METABOLIC INC INC PANEL AMB A0427 [facility] SERVICE 5 AMBULANCE AMBULANCE ALS SERVICE SERVICE EMERGENCY TRANSPORT LEVEL 1 CULTURE 48234 BELARUSIAN BELARUSIAN BACTERIAL 5 HEALTH HEALTH ASSOCIATE ASSOCIATE QUANTTATI S S VE COLONY COUNT URINE URNLS DIP 47051 BELARUSIAN BELARUSIAN 5 HEALTH HEALTH STICK/TAB ASSOCIATE ASSOCIATE LET S S REAGENT AUTO MICROSCOP Y HOSPITAL G[address] [facility] Y Y T [facility] HOSPITAL VISIT ASSESS & MGMT PT HOSPITAL G0463 [facility] 5 Y Y T [facility]PITAL HOSPITAL VISIT ASSESS & MGMT PT ELEC ZULEIMA 42031 [facility] 5 Y MAC PLS [facility] HOSPITAL CPLX DP BRN 1ST HR NONEMERGE A0130 FEDERATED FEDERATED NCY 5 TRANSPORT TRANSPORT TRANSPORT ATION: ATION SER ATION SER DANIELLA R ANGEL SBSQ 95741 [facility] FACILITY CARE/DAY E/M STABLE 10 MIN SBSQ 50386 [facility] NURSING 5 [facility] FACILITY CARE/DAY E/M STABLE 10 MIN ANES 36727 [facility] UPPER GI 5 ANESTH SHE ENDOSCOPY OF THE PROXIMAL BLUE TO DUODENUM ESOPHAGOG 65197 [facility] INGA ASTRODUOD 5 PHYSICIAN CAM ENOSCOPY S GROUP TRANSORAL DIAGNOSTI C GONADOTRO 25404 BASHIR CAMEJO PIN 5 [facility] [address] BASHIR CAMEJO INFUSION 5 [facility] THERAPY/P INC INC ROPHYLAXI S /DX 1ST TO 1 [place] [address] BASHIR CAMEJO INFUSION 5 [facility] THERAPY INC INC PROPHYLAX IS/[place] [address] BASHIR CAMEJO ABDOMEN & 5 [facility] PELVIS INC INC W/CONTRAS T MATERIAL LOCM Q9967 BASHIR CAMEJO [phone] 5 [facility] MG/ML INC INC IODINE CONCENTRA TION PER ML COLLECTIO 37628 BASHIR CAMEJO N VENOUS 5 [facility] BLOOD INC INC VENIPUNCT URE HEPATIC 19239 BASHIR CAMEJO FUNCTION 5 [facility] PANEL INC INC BASIC 67721 BASHIR CAMEJO METABOLIC 5 [facility] PANEL INC INC CALCIUM TOTAL BLOOD 52594 BASH[facility] CAMEJO COUNT 5 [facility] COMPLETE INC INC AUTO&AUTO DIFRNTL WBC NONEMERG A0120 [facility]ERATED FEDERATED TRNSPRT: 5 MINI-BUS TRANSPORT TRANSPORT MTN ATION SER ATION SER AREA/OTH SYS RADIOLOGI 53350 [facility] EXAM 5 [facility] CHEST 2 VIEWS FRONTAL&L ATERAL TRANS R0070 [facility] PR[facility]BL 5 [facility] X-RAY EQP&PERS PEDRO/NRS PEDRO-TRIP 1 PT SET-UP Q0092 [facility] PORTABLE 5 [facility] X-RAY EQUIPMENT SBSQ 39033 [facility] NURSING 5 [facility] FACILITY CARE/DAY E/M STABLE 10 MIN SCR G0145 [facility] CYTOPATH 5 [facility] CERV/VAG SCR AUTO&MNL RSCR PHYS URINE [address] [facility] 5 Y Y TEST [facility] VISUAL COLOR CMPRSN METHS ANES 86217 [place] RAKESH YURIDIA INTEG 5 MEDICAL EXTREMITI SERVICES ES ANT TRUNK & PERINEUM NOS INSJ/RPLC 72442 [facility] 5 Y Y CRANIAL [facility] NEUROSTIM GENER 2/> ELTRDS GENERATOR C17[address] [facility] 5 [facility] ULATOR NONRECHAR GEABLE RINGERS J7120 [facility] LACTATE 5 Y Y INFUSION [facility] UP TO 1000 CC ECG [address] [facility] ROUTINE 5 Y Y ECG [facility] W/LEAST 12 LDS TRCG ONLY W/O I&R RADIOLOGI 33603 [place] C EXAM 5 MEDICAL KEESHA CHEST 2 SERV VIEWS FOUNDATIO FRONTAL&L N ATERAL BLOOD [address] [facility] COUNT 5 Y Y COMPLETE HOSPITAL [facility] AUTOMATED URNLS DIP [address] [facility] 5 Y Y STICK/TAB HOSPITAL [facility] LET REAGENT AUTO MICROSCOP Y COLLECTIO [address] [facility] N VENOUS 5 Y Y BLOOD [facility] VENIPUNCT URE PROTHROMB [address] [facility] IN TIME 5 Y Y HOSPITAL [facility] BASIC [address] [facility] METABOLIC 5 Y Y PANEL [facility] CALCIUM TOTAL THROMBOPL [address] [facility] ASTIN 5 Y Y TIME [facility] PARTIAL PLASMA/WH OLE BLOOD SWALLOWIN 39227 [facility] FUNJ 5 MEDICAL CHELA W/CINERAD IMAGING IOGRAPY/V ASS IDRADIOG Encounters Encounter Start End Date Code Location Performer Type Date [facility] 7 [facility] 7 [facility] 7 [facility] 7 [facility] 7 [facility] 7 7 [facility] 7 [facility] 7 [facility] 7 7 [facility] 7 [facility] 7 [facility] 6 6 [facility] 6 6 [facility] 6 6 [facility] 6 6 [facility] 6 6 [facility] 6 6 [facility] 6 6 [facility] 6 6 [facility] 6 6 [facility] 6 6 [facility] 6 6 [facility] 6 6 [facility] 6 6 [facility] 6 6 HEALTHCAR E EMERGENCY 66026 RAJIV LEE DEPT 6 6 PHYSICIAN FOR VISIT S, PLLC HIGH SEVERITY& THREAT [facility] BASHIR - 6 6 [facility]PATIENT [facility] 6 6 HEALTH[facility] E OFFICE 27882 GISELA SILVA OUTPATIEN 6 6 MEDICAL ADVICE CLERK T VISIT SERV [address] [facility] UNIVERSIT - 6 6 Y [facility] 6 6 HEALTHCAR - OTHER E [facility] UNIVERSIT - [address] [facility] OFF[facility] 00139 GISELA SILVA OUTPATIEN 6 6 MEDICAL ADVICE CLERK T VISIT SERV [address] [facility] BASHIR - 6 6 [facility] 6 6 HEALTHCAR - OTHER E HOSPITAL UNIVERSIT - [address] [facility] T OFFICE 57966 GISELA SILVA [facility] 6 6 MEDICAL ADVICE CLERK T VISIT SERV 15 FOUNDATIO MINUTES N [facility] 6 6 [facility]ALTH[facility] - OTHER E HOSPITAL UNIVERSIT - [address] [facility] OFFICE 03267 [facility] 6 6 Y T VISIT 5 HOSPITAL MINUTES [facility] 6 6 [facility] - OTHER E [facility] 6 6 [facility] - OTHER E [facility] 5 5 [facility]ALTH[facility] - OTHER E HOSPITAL UNIVERSIT - [address] [facility] T [facility]PITAL BASHIR - 5 5 [facility] OUTPATIEN [facility] T EMERGENCY 79753 BASHIR 5 5 MEM HOSP DEPARTMEN INC T VISIT HIGH/URGE NT [facility] HOSPITAL UNIVERSIT - 5 5 Y [facility]PITAL UNIVERSIT - [address] [facility] T [facility] 5 5 [facility]ALTH[facility] - OTHER E [facility] 5 5 [facility]ALTH[facility] - OTHER E HOSPITAL BASHIR - 5 5 [facility] OUTPATIEN [facility] T HOSPITAL BASHIR - 5 5 [facility] OUTPATIEN INC T HOSPITAL BASHIR - 5 5 [facility] OUTPATIEN INC T OFFICE 58906 [facility] 5 5 PHYSICIAN CAM T NEW 30 S GROUP MINUTES [facility] 5 5 [facility] - OTHER E [facility] 5 5 [facility] - [address] [facility] OFF[facility] 07006 [facility] 5 Y T [facility]ISIT 5 [facility] UNIVERSIT - 5 5 Y [facility] UNIVERSIT - [address] [facility] OFF[facility] 52033 [facility] 5 5 Y T [facility]ISIT 5 [facility] UNIVERSIT - [address] [facility] T OFFICE 95830 [facility] 5 5 Y T VISIT [facility] 40 MINUTES OFFICE 98921 [facility] 5 5 NURSE [place] T VISIT PRACTITIO 25 NER GR MINUTES
--- OUTSIDE RECORDS SUMMARY | 2017-09-07 22:32 | External Medical Summary Rpt | CCD ---
Author Author , MIHAI Organization MIHAI Address Unknown Phone [email or web address] Care Team Providers Care Coil Maker Name Role Phone RAKESH RAKESH SHI CHA Unavailable Unavailable [facility], [facility] Unavailable Unavailable [facility]OC[facility], [facility] Unavailable Unavailable ASSOCIATES, [facility] ARNOLD, ARNOLD Unavailable Unavailable ARNOLD TRINA, ARNOLD Unavailable Unavailable TRINA BESSON TERESA, BESSON Unavailable Unavailable TERESA MILLARD ALL, MILLARD ALL Unavailable Unavailable JUDY MAC, JUDY Unavailable Unavailable MAC NEWBY KEESHA, NEWBY Unavailable Unavailable KEESHA [facility] Unavailable Unavailable SERVICE, [facility] Unavailable Unavailable SERVICE, [facility] ANEST[facility] OF Unavailable Unavailable [facility] [place], Unavailable Unavailable [facility], Unavailable Unavailable [facility] Unavailable Unavailable TRANSPORTATION SER, [facility] GUILIANI LATONIA, Unavailable Unavailable GUILIANI LATONIA [facility] Unavailable Unavailable INC, [facility] Unavailable Unavailable HOSPITAL P, [facility], Unavailable Unavailable [facility] Unavailable Unavailable IMAGING [facility], [facility] Un[facility], [facility], Unavailable Unavailable [facility] Unavailable Unavailable [...] Unavailable OF [place] [facility], Unavailable Unavailable [facility] ANGEL TIM Unavailable Unavailable DREW CASTRO WALKER FOR, WALKER Unavailable Unavailable FOR Purpose Continuity of Care Document - 02-25-2015 through 2016 Problems Code Diagnosis DOS Provider Status G10 [place] 07-26-2017 [facility] J309 ALLERGIC 07-26-2017 [facility] UNSPECIFIED [id number] OTHER LONG 07-10-2017 [facility] CURRENT DRUG THERAPY U90879 PAIN IN 06-11-2017 [facility] RIGHT ELBOW LLC B351 TINEA 05-27-2017 [facility] UN[facility]ARE PODIATRY OF [place] Q57249 PAIN IN 05-27-2017 [facility] RIGHT TOES [facility]ARE PODIATRY OF [place] [id number] PAIN IN 05-27-2017 [facility] LEFT TOES [facility]ARE PODIATRY OF [place] M6281 MUSCLE 02-25-2017 [facility] R4182 ALTERED 09-26-2016 [facility] UNSPECIFIED E870 HYPEROSMOLA 05-16-2016 [facility] HYPER[place] ASSOCIATES [place] X59477 PAIN IN 05-15-2016 [facility] LEFT KNEE LLC R918 OTHER 05-08-2016 [place] NONSPECIFIC [facility]ICAL ABNORMAL [facility]AGING ASS FINDING OF LUNG FIELD E46 UNSPECIFIED 05-07-2016 [facility] P ORIE MALNUTRITIO N J189 PNEUMONIA 05-07-2016 [facility] P R0989 OTH SPEC SX 05-07-2016 [place] [facility] THE IMAGING ASS [...] SPECIFIED FOUNDATION FUNCTIONAL IMPLANTS K219 GASTRO-ESOP 03-22-2016 [facility] DISEASE WITHOUT ESOPHAGITIS R1310 DYSPHAGIA 03-22-2016 [facility] Z4542 ENCOUNTER 03-22-2016 [place] [facility] MANAGEMENT NEUROPACEMA KER J690 PNEUMONITIS 02-03-2016 [facility] DUE TO LLC INHALATION OF FOOD AND VOMIT H5213 MYOPIA 01-30-2016 [facility] H524 PRESBYOPIA 01-30-2016 [facility] PLL Z4549 ENCOUNTER 01-19-2016 [facility] OTH IMPLANTED NS DEVICE Z9889 OTHER 01-19-2016 [facility] POSTPROCEDU RAL STATES R262 DIFFICULTY 10-13-2015 [facility] NOT ELSEWHERE CLASSIFIED R51 HEADACHE 10-12-2015 [facility] [id number] CONTUSION 10-12-2015 [facility] OTHER PART [facility] OF HEAD INC INITIAL ENCOUNTER [id number] UNSPECIFIED 10-12-2015 [facility] INITIAL SERVICE ENCOUNTER R8290 UNSPECIFIED 09-30-2015 [facility] ABNORMAL HEALTH FINDINGS IN ASSOCIATES URINE 04478 ABDOMINAL 08-16-2015 [facility] PAIN, ANESTH OF UNSPECIFIED THE BLUE SITE 97162 ABDOMINAL 08-16-2015 [facility] PAIN, [facility] EPIG[facility] 96903 UNSPECIFIED 08-12-2015 [facility] N 5920 CALCULUS OF 08-12-2015 [facility] 95572 NAUSEA 08-12-2015 [facility] [facility] 43761 ABDOMINAL 08-12-2015 [facility] PAIN, [facility] PERIUMBILIC INC 98597 ABDOMINAL 08-12-2015 [place] [facility] OTHER MEDICAL SPECIFIED IMAGING ASS SITE 02494 ABDOMINAL 08-11-2015 [facility] PAIN, [facility] GENERALIZED INC 80817 08-11-2015 [place] 51867 SHORTNESS 08-01-2015 [facility] OF BREATH LLC 3334 [place] 07-26-2015 [facility] V762 SCREENING 07-08-2015 [facility] MALIGNANT NEOPLASM OF THE CERVIX 9962 [facility] COMP 03-30-2015 [place] [facility] DEVICE IMPLANT&GRA FT V5302 NEUROPACEMA 03-30-2015 [facility] 4779 ALLERGIC 03-22-2015 [facility] CAUSE UNSPECIFIED 34414 ESOPHAGEAL 03-22-2015 [facility] 92946 ATROPHIC 03-22-2015 [facility] WITHOUT MENTION OF HEMORRHAGE 03659 OTHER SPEC 03-22-2015 [facility] WITHOUT MENTION HEMORRHAGE 90895 LOSS OF 03-22-2015 [facility] 23862 DIARRHEA 03-22-2015 [facility] V4589 OTHER 03-10-2015 [facility] STATUS OTHER V719 OBSERVATION 03-10-2015 [place] [facility] UNSPECIFIED [facility]OUNDATION SUSPECTED CONDITION 45631 DYSPHAGIA 03-09-2015 [place] UNSPECIFIED [facility] ASS Medications Na ND [...] 00 RE 50 CA 54 17 17 OK LA 4 PH CH ZI AR AE ME MA L CY S LA OT LL EC C T PA ST E ME 00 04 09 0 30 30 ME 14 GA Ac LA 90 -0 -2 0. D 99 IN ti TO 45 2- 3- 00 CA 65 EY ve NI 18 20 20 0 RE 64 N 25 17 17 OK 3 2 PH CH MG AR AE MA L TA CY S BL ET LL C SE 00 03 09 0 60 30 ME 14 GA Ac NE 53 -1 -2 0. D 99 IN ti XO 64 9- 2- 00 CA 01 EY ve N- 08 20 20 0 RE 49 S 60 17 17 OK TA 1 PH CH BL AR AE ET MA L CY S LL C ST 00 11 09 0 30 30 ME 14 GA Ac OO 53 -0 -2 0. D 97 IN ti L 61 2- 0- 00 CA 27 EY ve SO 06 20 20 0 RE 11 FT 41 16 17 OK EN 0 PH CH ER AR AE MA L 25 CY S 0 MG LL C SO FT GE L LO 00 06 09 0 30 30 ME 14 GA Ac RA 78 -1 -1 0. D 98 IN ti TA 15 7- 9- 00 CA 35 EY ve DI 07 20 20 0 RE 58 NE 70 17 17 OK 1 PH CH 10 AR AE MA L MG CY S TA LL BL C ET TA 00 03 09 0 30 30 ME 14 GA Ac B- 90 -1 -1 0. D 97 IN ti A- 40 9- 8- 00 CA 40 EY ve 53 20 20 0 RE 84 TE 08 17 17 OK 0 PH CH TA AR AE BL MA L ET CY S LL C LO 00 06 08 0 30 30 ME 14 GA Ac RA 78 -1 -2 0. D 82 IN ti TA 15 7- 5- 00 CA 83 EY ve DI 07 20 20 0 RE 92 NE 70 17 17 OK 1 PH CH 10 AR AE MA L MG CY S TA LL BL C ET ME 00 04 08 0 30 30 ME 14 GA Ac LA 90 -0 -2 0. D 82 IN ti TO 45 2- 5- 00 CA 84 EY ve NI 18 20 20 0 RE 00 N 25 17 17 OK 3 2 PH CH MG AR AE MA L TA CY S BL ET LL C SE 00 03 08 0 60 30 ME 14 GA Ac NE 53 -1 -2 0. D 81 IN ti XO 64 9- 3- 00 CA 13 EY ve N- 08 20 20 0 RE 71 S 60 17 17 OK TA 1 PH CH BL AR AE ET MA L CY S LL C TA 00 03 08 0 30 30 ME 14 GA Ac B- 90 -1 -2 0. D 80 IN ti A- 40 9- 1- 00 CA 08 EY ve 53 20 20 0 RE 41 TE 08 17 17 OK 0 PH CH TA AR AE BL MA L ET CY S LL C ST 00 11 07 0 30 30 ME 14 GA Ac OO 53 -0 -3 0. D 68 IN ti L 61 2- 1- 00 CA 05 EY ve SO 06 20 20 0 RE 89 FT 41 16 17 OK EN 0 PH CH ER AR AE MA L 25 CY S 0 MG LL C SO FT GE L LO 00 06 07 0 30 30 ME 14 GA Ac RA 78 -1 -2 0. D 66 IN ti TA 15 7- 8- 00 CA 70 EY ve DI 07 20 20 0 RE 12 NE 70 17 17 OK 1 PH CH 10 AR AE MA L MG CY S TA LL BL C ET ME 00 04 07 0 30 30 ME 14 GA Ac LA 90 -0 -2 0. D 66 IN ti TO 45 2- 8- 00 CA 70 EY ve NI 18 20 20 0 RE 20 N 25 17 17 OK 3 2 PH CH MG AR AE MA L TA CY S BL ET LL C RE 53 07 07 0 11 10 ME 14 GA Ac ME 32 -2 -2 30 D 66 IN ti DY 90 5- 5- .0 CA 34 EY ve 16 20 20 00 RE 44 CA 54 17 17 OK LA 4 PH CH ZI AR AE ME MA L CY S LA OT LL EC C T PA ST E SE 00 03 07 0 60 30 ME 14 GA Ac NE 53 -1 -2 0. D 64 IN ti XO 64 9- 4- 00 CA 20 EY ve N- 08 20 20 0 RE 99 S 60 17 17 OK TA 1 PH CH BL AR AE ET MA L CY S LL C TA 00 03 07 0 30 30 ME 14 GA Ac B- 90 -1 -2 0. D 65 IN ti A- 40 9 4- 00 CA 17 EY ve 53 20 20 0 RE 52 TE 08 17 17 OK 0 PH CH TA AR AE BL MA L ET CY S LL C ST 00 11 07 0 30 30 ME 14 GA Ac OO 53 -0 -0 0. D 50 IN ti L 61 2- 3- 00 CA 60 EY ve SO 06 20 20 0 RE 20 FT 41 16 17 OK EN 0 PH CH ER AR AE MA L 25 CY S 0 MG LL C SO FT GE L LO 00 06 07 0 30 30 ME 14 GA Ac RA 78 -1 -0 0. D 50 IN ti TA 15 7- 00 CA 60 EY ve DI 07 20 20 0 RE 12 NE 70 17 17 OK 1 PH CH 10 AR AE MA L MG CY S TA LL BL C ET ME 00 04 07 0 30 30 ME 14 GA Ac LA 90 -0 -0 0. D 50 IN ti TO 45 2- 1- 00 CA 60 EY ve NI 18 20 20 0 RE 31 N 25 17 17 OK 3 2 PH CH MG AR AE MA L TA CY S BL ET LL C SE 00 03 06 0 60 30 ME 14 GA Ac NE 53 -1 -2 0. D 47 IN ti XO 64 9- 6- CA 35 EY ve N- 08 20 20 0 RE 41 S 60 17 17 OK TA 1 PH CH BL AR AE ET MA L CY S LL C TA 00 03 06 0 30 30 ME 14 GA Ac B- 90 -1 -2 0. D 45 IN ti A- 40 9 6- CA 93 EY ve 53 20 20 0 RE 04 TE 08 17 17 OK 0 PH CH TA AR AE BL MA L ET CY S LL C ST 00 11 06 0 14 14 ME 14 GA Ac OO 53 -0 -2 0. D 42 IN ti L 61 2- 0- 00 CA 50 EY ve SO 06 20 20 0 RE 63 FT 41 16 17 OK EN 0 PH CH ER AR AE MA L 25 CY S 0 MG LL C SO FT GE L LO 00 06 06 0 14 14 ME 14 GA Ac RA 78 -1 -1 0. D 41 IN ti TA 15 7- 9- 00 CA 58 EY ve DI 07 20 20 0 RE 41 NE 70 17 17 OK 1 PH CH 10 AR AE MA L MG CY S TA LL BL C ET ME 00 04 06 0 14 14 ME 14 GA Ac LA 90 -0 -1 0. D 41 IN ti TO 45 2- 9- 00 CA 58 EY ve NI 18 20 20 0 RE 47 N 25 17 17 OK 3 2 PH CH MG AR AE [...] AR AR ME MA D CY W LA OT LL EC C T PA ST [...] Procedure DOS Code Location Performer Comment ECG 84595 [facility] ROUTINE 7 [facility] ECG W/LEAST 12 LDS TRCG ONLY W/O I&R RADEX 99319 [facility] ELBOW 2 7 LLC LLC VIEWS TRANS R0070 [facility] PRTBL 7 [facility] X-RAY EQP&PERS PEDRO/NRS PEDRO-TRIP 1 PT SET-UP Q0092 PORTRASHID [facility] PORTABLE 7 [facility] X-RAY EQUIPMENT DEBRIDEME 99127 SPECIAL SKRIP JR. NT NAIL 7 CARE ANY PODIATRY METHOD OF [place]HAI 6/> DEBRIDEME 39733 SPECIAL SKRIP JR. NT NAIL 7 CARE ANY PODIATRY METHOD OF [place]I 6/> TRAVEL [address] HEALTH NEC CNC MILL SET UP OPERATOR ASSOCIATE SPEC; S S PRORAT ACTL MILE COMPREHEN [address] METABOLIC ASSOCIATE ASSOCIATE PANEL S S SBSQ 24545 [facility] FACILITY CARE/DAY E/M STABLE 10 MIN BLOOD [address] HEALTH COMPLETE ASSOCIATE ASSOCIATE AUTOMATED S S EASTON V G0471 [address] HEALTH DOPE MAINTENANCE WORKER/URN ASSOCIATE ASSOCIATE SMP CATH S S IND SNF/LAB BHALF PIT AND AUXILIARIES SUPERVISOR EASTON V G0471 [address] HEALTH DOPE MAINTENANCE WORKER/URN ASSOCIATE ASSOCIATE SMP CATH S S IND SNF/LAB BHALF PIT AND AUXILIARIES SUPERVISOR DRUG [address] [facility] [address] HEALTH VALPROIC ASSOCIATE ASSOCIATE DIPROPYLA S S CETIC ACID TOTAL TRAVEL [address] NEC CNC MILL SET UP OPERATOR ASSOCIATE SPEC; S S PRORAT ACTL MILE SBSQ 93710 [facility] FACILITY CARE/DAY E/M STABLE 10 MIN DRUG [address] VALPROIC ASSOCIATE ASSOCIATE DIPROPYLA S S CETIC ACID TOTAL TRAVEL [address] NEC CNC MILL SET UP OPERATOR ASSOCIATE SPEC; S S PRORAT ACTL MILE EASTON V G0471 [address] HEALTH DOPE MAINTENANCE WORKER/URN ASSOCIATE ASSOCIATE SMP CATH S S IND SNF/LAB BHALF PIT AND AUXILIARIES SUPERVISOR ECG 03290 TROY SIMMONS ROUTINE 7 [facility] ECG W/LEAST 12 LDS TRCG ONLY W/O I&R SBSQ 30709 [facility] FACILITY CARE/DAY E/M STABLE 10 MIN DEBRIDEME 83674 SPECIAL GRETCHEN INMAN NT NAIL 7 CARE ANY PODIATRY METHOD OF MIHAI /> E/M 55303 [facility] 7 NURSING FACILITY ASSESS STABLE 30 MIN SBSQ 89400 [facility] 6 [facility] TRIAN FACILITY CARE/DAY E/M STABLE 10 MIN SBSQ 52380 [facility] 6 TRINA TRINA FACILITY CARE/DAY E/M STABLE [address] [facility] BACTERIAL HEALTH HEALTH ASSOCIATE ASSOCIATE QUANTTADEBORA Walker S VE COLONY COUNT URINE URNLS DIP [address] [facility] [address] [place] [address] HEALTH STICK/TAB ASSOCIATE ASSOCIATE LET S S REAGENT AUTO MICROSCOP Y DEBRIDEME 72204 SPECIAL GRETCHEN INMAN NT NAIL 6 CARE TRINA ANY PODIATRY METHOD OF [place]I / SBSQ 69784 [facility] 6 TRINA TRINA FACILITY CARE/DAY E/M STABLE 10 MIN TRAVEL [address] [facility] [place] [address] HEALTH HEALTH NEC CNC MILL SET UP OPERATOR ASSOCIATE SPEC; S S PRORAT ACTL MILE COMPREHEN [address] [facility] HEALTH METABOLIC ASSOCIATE ASSOCIATE PANEL S S EASTON V G[address] [facility] BLD HEALTH HEALTH DOPE MAINTENANCE WORKER/URN ASSOCIATE ASSOCIATE REED Walker S IND SNF/LAB BHALF PIT AND AUXILIARIES SUPERVISOR SBSQ 60967 [facility] 6 TRINA TRINA FACILITY CARE/DAY E/M STABLE 10 MIN SBSQ 50824 [facility] 6 TRINA TRINA FACILITY CARE/DAY E/M STABLE 10 MIN ECG 25333 [facility] ROUTINE 6 LLC LLC ECG W/LEAST 12 LDS TRCG ONLY W/O I&R DEBRIDEME 17791 SPECIAL GRETCHEN INMAN NT NAIL 6 CARE TRINA ANY PODIATRY METHOD OF [place]I /> SBSQ 15368 [facility] 6 TRINA TRINA FACILITY CARE/DAY E/M STABLE [address] [facility] METABOLIC HEALTH HEALTH PANEL ASSOCIATE ASSOCIATE CALCIUM S S TOTAL TRAVEL [address] [facility] [address] MED 6 HEALTH HEALTH NEC CNC MILL SET UP OPERATOR ASSOCIATE SPEC; S S PRORAT ACTL MILE EASTON V G04[address] [facility] BLD 6 HEALTH HEALTH DOPE MAINTENANCE WORKER/URN ASSOCIATE ASSOCIATE REED CATH S S IND SNF/LAB BHALF PIT AND AUXILIARIES SUPERVISOR RADIOLOGI 59363 TEDDYD [facility] C 6 LLC LLC EXAMINATI ON KNEE 1/2 VIEWS SET-UP Q0092 [facility] PORTABLE 6 LLC LLC X-RAY EQUIPMENT TRANS R0070 [facility] PRTBL 6 LLC LLC X-RAY EQP&PERS PEDRO/NRS PEDRO-TRIP 1 PT INITIAL 63895 [facility] 6 TRINA TRINA FACILITY CARE/DAY 25 MINUTES RADIOLOGI 41066 [place] MAN[facility] C EXAM 6 MEDICAL CHELA CHEST 2 IMAGING VIEWS ASS FRONTAL&L ATERAL GROUND A0425 [facility] AMBULANCE PER SERVICE SERVICE STATUTE MILE ECG 60045 [facility] KUMAR ROUTINE 6 [facility] W/LEAST P 12 LDS I&R ONLY RADIOLOGI 95861 [place] MILLARD ALL C 6 MEDICAL EXAMINATI IMAGING ON CHEST ASS SINGLE [place]IEW FRONTAL AMB A0427 [facility] SERVICE 6 AMBULANCE AMBULANCE ALS SERVICE SERVICE EMERGENCY TRANSPORT LEVEL 1 SBSQ [address] [facility] [address] [facility] FACILITY CARE/DAY E/M STABLE 10 MIN NONEMERGE A0130 [facility] FEDERATED NCY 6 TRANSPORT TRANSPORT TRANSPORT ATION: ATION SER ATION SER WHEELCHAI R [facility] G0463 [facility] 6 Y Y T [facility]PITAL HOSPITAL VISIT ASSESS & MGMT PT ELEC ZULEIMA 91779 [facility] 6 Y Y PLS [facility] CPLX DP BRN 1ST HR SBSQ [address] [facility] [address] [facility] FACILITY CARE/DAY E/M STABLE [address] [facility] 6 Y Y T [facility] HOSPITAL VISIT ASSESS & MGMT PT ELEC ZULEIMA 28475 [place] ANGEL RUSSELL NSTIM 6 MEDICAL ASSET MANAGEMENT COORDINATOR PLS GEN SERV CPLX DP FOUNDATIO BRN 1ST N HR DEBRIDEME 38066 SPECIAL SKRIP JR. NT NAIL 6 CARE TRINA ANY PODIATRY METHOD OF [place]HAI 6/> SWALLOWIN 50976 [facility] G FUNCJ 6 [facility] W/CINERAD INC INC IOGRAPY/V IDRADIOG MOTION 07785 [facility] FLUOR 6 [facility] EVAL INC INC SWLNG FUNCJ C/V REC SBSQ 50746 [facility] 6 TRINA TRINA FACILITY CARE/DAY E/M STABLE 10 MIN NONEMERGE A0130 FEDERATED FEDERATED NCY 6 TRANSPORT TRANSPORT TRANSPORT ATION: ATION SER ATION SER WHEELCHAI R VAN ELEC ZULEIMA 35899 GISELA VILLATIM 6 MEDICAL ASSET MANAGEMENT COORDINATOR PLS GEN SERV SMPL FOUNDATIO SC/PERPH N W[facility] G0463 [facility] 6 Y Y T [facility] HOSPITAL HOSPITAL VISIT ASSESS & MGMT PT RADIOLOGI 22050 [facility] C 6 [facility] EXAMINATI ON CHEST SINGLE VIEW FRONTAL SET-UP Q0092 [facility] PORTABLE 6 [facility] X-RAY EQUIPMENT TRANS R0070 [facility] PRTBL 6 [facility] X-RAY EQP&PERS PEDRO/NRS PEDRO-TRIP 1 PT OPHTH 48183 [facility] 6 CONTRACT TAVO XM&EVAL [facility] NEW PT 1/> VST DETERMINA 65777 [facility] TION 6 CONTRACT TAVO REFRACTIV [facility] SBS 96939 [facility] NURSING 6 TRINA TRINA FACILITY CARE/DAY E/M STABLE 10 MIN ELEC ZULEIMA 57079 [facility] 6 Y Y PLS [facility] SMPL SC/PERPH W[facility] G0463 [facility] 6 Y Y T [facility] HOSPITAL HOSPITAL VISIT ASSESS & MGMT PT ELEC ZULEIMA 40851 GISELA SILVA NSTIM 6 MEDICAL ASSET MANAGEMENT COORDINATOR PLS GEN SERV SMPL FOUNDATIO SC/PERPH N W/[facility] G0463 [facility] 6 Y Y T [facility] HOSPITAL HOSPITAL VISIT ASSESS & MGMT PT ELEC ZULEIMA 72315 [facility] 6 Y Y PLS [facility] CPLX DP BRN 1ST HR SBSQ 45019 [facility] NURSING 6 TRINA [facility] FACILITY CARE/DAY E/M STABLE 10 MIN NONEMERGE A0130 FEDERATED FEDERATED NCY 6 TRANSPORT TRANSPORT TRANSPORT ATION: ATION SER ATION SER DANIELLA ORTIZ DEBRIDEME 47417 SPECIAL SKRIP JR. NT NAIL 6 CARE TRINA ANY PODIATRY METHOD OF [place]I 6/> ECG 82950 [facility] ROUTINE 6 LLC LLC ECG W/LEAST 12 LDS TRCG ONLY W/O I&R E/M 09646 [facility] NURSING FACILITY ASSESS STABLE 30 MIN SBSQ 88101 [facility] NURSING 5 [facility] FACILITY CARE/DAY E/M STABLE 10 MIN NONEMERGE A0130 FEDERATED FEDERATED NCY 5 TRANSPORT TRANSPORT TRANSPORT ATION: ATION SER ATION SER DANIELLA Peck VAN ELEC ZULEIMA 76767 [facility] 5 Y Y PLS [facility] CPLX DP BRN 1ST HR HOSP[facility] G0463 [facility] 5 Y Y T [facility] HOSPITAL VISIT ASSESS & [place] [address] [facility] C[facility] HEAD/BRAI 5 [facility] N W/O INC INC CONTRAST MATERIAL INJECTION J2405 [facility]JO 5 [facility] ONDANSETR INC INC ON HCL PER 1 MG THER 94369 [facility] PROPH/DX 5 [facility] NJX IV INC INC PUSH SINGLE/1S T SBST/DRUG THERAPEUT 09616 [facility] IC 5 [facility] INJECTION INC INC IV PUSH EACH NEW DRUG GROUND A0425 [facility] AMBULANCE AMBULANCE PER SERVICE SERVICE STATUTE MILE [facility] DIP 48139 [facility] CAMEJO 5 [facility] STICK/TAB INC INC LET REAGENT AUTO MICROSCOP Y BLOOD 88509 [facility] COUNT 5 [facility] COMPLETE INC INC AUTO&AUTO DIFRNTL WBC COMPREHEN 34553 B[facility] SIVE 5 [facility] METABOLIC INC INC PANEL AMB A0427 [facility] SERVICE 5 AMBULANCE AMBULANCE ALS SERVICE SERVICE EMERGENCY TRANSPORT LEVEL [address] [facility] BACTERIAL 5 HEALTH HEALTH ASSOCIATE ASSOCIATE QUANTTATI S S VE COLONY COUNT URINE URNLS DIP [address] [facility] 5 HEALTH HEALTH STICK/TAB ASSOCIATE ASSOCIATE LET S S REAGENT AUTO MICROSCOP Y HOSPITAL G0463 [facility] Y Y T [facility] HOSPITAL VISIT ASSESS & MGMT PT HOSPITAL G0463 [facility] 5 Y Y T [facility] HOSPITAL HOSPITAL VISIT ASSESS & MGMT PT ELEC ZULEIMA 30465 [facility] 5 Y MAC PLS [facility] CPLX DP BRN 1ST HR NONEMERGE A0130 [facility] FEDERATED NCY 5 TRANSPORT TRANSPORT TRANSPORT ATION: ATION SER ATION SER DANIELLA R ANGEL SBSQ 88675 [facility] N[facility] 5 TRINA TRINA FACILITY CARE/DAY E/M STABLE 10 MIN SBSQ 61737 [facility] NURSING 5 TRINA TRINA FACILITY CARE/DAY E/M STABLE 10 MIN ANES 26852 [facility] UPPER GI 5 ANESTH SHE ENDOSCOPY OF THE PROXIMAL BLUE TO DUODENUM ESOPHAGOG 38832 [facility] INGA ASTRODUOD 5 PHYSICIAN CAM ENOSCOPY S GROUP TRANSORAL DIAGNOSTI C GONADOTRO 31067 [facility]AME[facility] PIN 5 [facility] [place] [address] B[facility] C[facility] INFUSION 5 [facility] THERAPY/P INC INC ROPHYLAXI S /DX 1ST TO 1 [place] [address] [facility] INFUSION 5 [facility] THERAPY INC INC PROPHYLAX IS/[place] [address] [facility] C[facility] ABDOMEN & 5 [facility] PELVIS INC INC W/CONTRAS T MATERIAL LOCM Q9967 [facility] [phone] [facility] MG/ML INC INC IODINE CONCENTRA TION PER ML COLLECTIO 67899 [facility] N VENOUS 5 [facility] BLOOD [facility] INC VENIPUNCT URE HEPATIC 05575 [facility] FUNCTION 5 [facility] PANEL INC INC BASIC 26445 [facility] METABOLIC 5 [facility] PANEL INC INC CALCIUM TOTAL BLOOD 89651 [facility] COUNT 5 [facility] COMPLETE INC INC AUTO&AUTO DIFRNTL WBC NONEMERG A0120 [facility] FED[facility] TRNSPRT: 5 [facility]SPORT TRANSPORT MTN ATION SER ATION SER AREA/OTH SYS RADIOLOGI 40949 [facility] 5 [facility] CHEST 2 VIEWS FRONTAL&L ATERAL TRANS R0070 [facility] PRTBL 5 [facility] X-RAY EQP&PERS PEDRO/NRS PEDRO-TRIP 1 PT SET-UP Q0092 [facility] PORTABLE 5 [facility] X-RAY EQUIPMENT SBSQ [id number] [facility] NURSING 5 [facility] F[facility] CARE/DAY E/M STABLE 10 MIN SCR G0145 [facility], CYTOPATH 5 [facility] CERV/VAG SCR AUTO&MNL RSCR PHYS URINE 28293 [facility] 5 Y Y TEST [facility] VISUAL COLOR CMPRSN METHS ANES 07831 [place] RAKESH YURIDIA INTEG 5 MEDICAL EXTREMITI SERVICES ES ANT TRUNK & PERINEUM NOS INSJ/RPLC 56654 [facility] 5 Y Y CRANIAL [facility] NEUROSTIM GENER 2/> ELTRDS GENERATOR C1767 [facility] 5 Y [facility] ULATOR NONRECHAR GEABLE RINGERS J7120 [facility] LACTATE 5 Y Y INFUSION [facility] UP TO 1000 CC ECG 12263 [facility] ROUTINE 5 Y Y ECG [facility] W/LEAST 12 LDS TRCG ONLY W/O I&R RADIOLOGI 78574 [place] C EXAM 5 [facility]ICAL KEESHA CHEST 2 SERV VIEWS FOUNDATIO FRONTAL&L N ATERAL BLOOD 38233 [facility] COUNT 5 Y Y COMPLETE [facility] AUTOMATED URNLS DIP 91813 [facility] 5 Y Y STICK/TAB [facility] LET REAGENT AUTO MICROSCOP Y COLLECTIO 26103 [facility] N VENOUS 5 Y Y BLOOD [facility] VENIPUNCT URE PROTHROMB 82410 [facility] IN TIME 5 Y Y [facility] BASIC 17348 [facility] METABOLIC 5 Y Y PANEL [facility] CALCIUM TOTAL THROMBOPL 32879 [facility] ASTIN 5 Y Y TIME [facility] PARTIAL PLASMA/WH OLE BLOOD SWALLOWIN 04705 [facility]J 5 [facility]LA W/CINERAD IMAGING IOGRAPY/V ASS IDRADIOG Encounters Encounter Start End Date Code Location Performer Type Date [facility] INPATIENT 7 7 [facility] [place] [facility] 7 [facility] [facility] 7 [facility] 7 7 [facility] 7 7 [facility] 7 7 [facility] 6 6 OF [facility] 6 6 OF [facility] 6 6 [facility] 6 6 OF [facility] 6 6 OF [facility] 6 6 OF [facility] 6 6 [facility] 6 6 OF [facility] 6 6 OF [facility] 6 6 OF [facility] 6 6 OF [facility] 6 6 OF [facility] 6 6 [facility] 6 [facility]ALTH[facility] E EMERGENCY [id number] RAJIV LEE DEPT 6 6 PHYSICIAN FOR VISIT S, PLLC HIGH SEVERITY& THREAT [facility] - 6 6 [facility] 6 6 [facility]ALTH[facility] E OFFICE [id number] GISELA SILVA OUTPATIEN 6 6 MEDICAL ASSET MANAGEMENT COORDINATOR T VISIT SERV 15 FOUNDATIO MINUTES [facility]ERSIT - [address] [facility] 6 [facility]ALTHCAR - OTHER E [facility] UNIVERSIT - 6 6 Y [facility] T OFFICE [id number] GISELA SILVA OUTPATIEN 6 6 MEDICAL ASSET MANAGEMENT COORDINATOR T VISIT SERV 15 FOUNDATIO MINUTES [facility] - 6 6 [facility] - OTHER E HOSPITAL UNIVERSIT - 6 6 Y [facility] T OFFICE [id number] GISELA SILVA [facility] 6 6 MEDICAL ASSET MANAGEMENT COORDINATOR T VISIT SERV 15 FOUNDATIO MINUTES N [facility] 6 6 HEALTHCAR - OTHER E HOSPITAL UNIVERSIT [facility] 6 6 Y [facility] T OFFICE [id number] UNIVERSIT [facility] 6 6 Y T VISIT 5 HOSPITAL MINUTES [facility] 6 6 [facility] - OTHER E [facility] 6 6 [facility] - OTHER E [facility] 5 5 [facility] - OTHER E HOSPITAL UNIVERSIT - 5 5 Y [facility] T HOSPITAL BASHIR - 5 5 [facility] OUTPATIEN [facility] T EMERGENCY [id number] [facility]ASH[facility] 5 5 [facility] DEPARTMEN INC T VISIT HIGH/URGE NT [facility] UNIVERSIT - [address] [facility] UNIVERSIT [facility] 5 5 Y [facility] T [facility] 5 5 [facility] - OTHER E [facility] 5 5 [facility] - OTHER E HOSPITAL BASH[facility] - 5 5 [facility] OUTPATIEN [facility] T HOSPITAL BASHIR - 5 5 [facility] OUTPATIEN INC T HOSPITAL BASH[facility] 5 5 [facility] OUTPATIEN INC T OFFICE [id number] [facility] 5 5 PHYSICIAN CAM T NEW 30 S GROUP MINUTES [facility] 5 5 [facility] - OTHER E [facility] UN[facility] 5 5 Y [facility] T OFFICE 13776 [facility] 5 5 Y T VISIT 5 [facility] UNIVERSIT [facility] 5 5 Y [facility] UNIVERSIT - 5 5 Y [facility] T OFFICE [id number] [facility] 5 5 Y T [facility]ISIT 5 [facility] UNIVERSIT [facility] 5 5 Y [facility] T OFFICE [id number] [facility] 5 5 Y T VISIT [facility] 40 MINUT[facility] OFFICE [id number] [facility] 5 5 NURSE [place] T VISIT PRACTITIO 25 NER GR MINUTES
--- OUTSIDE RECORDS SUMMARY | 2017-09-07 22:37 | External Medical Summary Rpt | CCD ---
Author Author , MIHAI HOLM Address Unknown Phone [email or web address] Care Team Providers Care Utility Sales Representative Name Role Phone RAKESH SHIRAKESH CHA Unavailable Unavailable [facility], [facility] Unavailable Unavailable [facility], [facility] Unavailable Unavailable ASSOCIATES, [facility] ARNOLD, ARNOLD Unavailable Unavailable ARNOLD TRINA, ARNOLD Unavailable Unavailable TRINA BEINEKE JUNE, BEINEKE Unavailable Unavailable JUNE BESSON TERESA, BESSON Unavailable Unavailable TERESA MILLARD ALL, MILLARD ALL Unavailable Unavailable JUDY MAC, JUDY Unavailable Unavailable [facility] Unavailable Unavailable SERVICE, [facility] Unavailable Unavailable SERVICE, [facility] Unavailable Unavailable [facility] MANISH CHELA, Unavailable Unavailable MANISH CHELA [facility], Unavailable Unavailable [facility] Unavailable Unavailable TRANSPORTATION SER, [facility] GUILIANI LATONIA, Unavailable Unavailable GUILIANI LATONIA [facility] Unavailable Unavailable INC, [facility] Unavailable Unavailable HOSPITAL P, P [facility], Unavailable Unavailable [facility] Unavailable Unavailable IMAGING [facility], [facility] Unavailable [facility], [facility], Unavailable Unavailable [facility] Unavailable Unavailable [...] Unavailable Unavailable JOSE ALBERTO SHE JOSE ALBERTO TAVO, Unavailable Unavailable JOSE ALBERTO TAVO [facility] Unavailable Unavailable OF [place], [facility], Unavailable Unavailable 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 Unavailable Unavailable FOR Purpose Continuity of Care Document - 02-25-2015 through 2016 Problems Code Diagnosis DOS Provider Status G10 [place] 07-26-2017 [facility] J309 ALLERGIC 07-26-2017 [facility] UNSPECIFIED [id number] OTHER LONG 07-10-2017 [facility] CURRENT DRUG THERAPY [id number] PAIN IN 06-11-2017 [facility] RIGHT ELBOW LLC B351 TINEA 05-27-2017 [facility] [place] X53099 PAIN IN 05-27-2017 [facility] RIGHT [facility] POD[facility] [place] S12309 PAIN IN 05-27-2017 [facility] LEFT TOES [facility]ARE PODI[facility] [place] M6281 MUSCLE 02-25-2017 [facility] R4182 ALTERED 09-26-2016 [facility] UNSPECIFIED E870 HYPEROSMOLA 05-16-2016 [facility] HYPER[place] ASSOCIATES [place] L53630 PAIN IN 05-15-2016 [facility] LEFT KNEE LLC R918 OTHER 05-08-2016 [facility] NONSPECIFIC [facility]ICAL ABNORMAL IMAGING ASS FINDING OF LUNG FIELD E46 UNSPECIFIED 05-07-2016 [facility] P ORIE MALNUTRITIO N J189 PNEUMONIA 05-07-2016 [facility] P R0989 OTH SPEC SX 05-07-2016 [facility] THE IMAGING ASS CIRC & RESP SYS R509 FEVER 05-07-2016 [facility] UNSPECIFIED [facility]YSICIANS, PLLC R58 HEMORRHAGE 05-07-2016 [facility] NOT [facility]BULANCE ELSEWHERE SERVICE CLASSIFIED R64 CACHEXIA 05-07-2016 [facility] Z681 BODY MASS 05-07-2016 [facility] INDEX 19.9 [facility] OR LESS INC ADULT R69 ILLNESS 04-12-2016 [facility] UNSPECIFIED TRANSPORTAT ION SER Z9689 PRESENCE OF 04-12-2016 [place] [facility] OTHER SERV SPECIFIED [facility] FUNCTIONAL IMPLANTS K219 GASTRO-ESOP 03-22-2016 [facility] DISEASE WITHOUT ESOPHAGITIS R1310 DYSPHAGIA 03-22-2016 [facility] Z4542 ENCOUNTER 03-22-2016 [place] [facility] MANAGEMENT NEUROPACEMA KER J690 PNEUMONITIS 02-03-2016 [facility] DUE TO LLC INHALATION OF FOOD AND VOMIT H5213 MYOPIA 01-30-2016 [facility] H524 PRESBYOPIA 01-30-2016 [facility] PLL Z4549 ENCOUNTER 01-19-2016 [facility] MGMT OTH IMPLANTED NS DEVICE Z9889 OTHER 01-19-2016 [facility] POSTPROCEDU RAL STATES R262 DIFFICULTY 10-13-2015 [facility] NOT ELSEWHERE CLASSIFIED R51 HEADACHE 10-12-2015 [facility] J3051CW CONTUSION 10-12-2015 [facility] OTHER PART [facility] OF HEAD INC INITIAL ENCOUNTER [id number] UNSPECIFIED 10-12-2015 [facility] INITIAL SERVICE ENCOUNTER R8290 UNSPECIFIED 09-30-2015 [facility] AB[facility] FINDINGS IN ASSOCIATES URINE 27430 ABDOMINAL 08-16-2015 [facility] PAIN, ANESTH OF UNSPECIFIED THE BLUE SITE 94580 ABDOMINAL 08-16-2015 [facility] 13216 UNSPECIFIED 08-12-2015 [facility] N 5920 CALCULUS OF 08-12-2015 [facility] 90246 NAUSEA 08-12-2015 [facility]ONE [facility] 27449 ABDOMINAL 08-12-2015 [facility] PAIN, [facility] PERIUMBILIC INC 86519 ABDOMINAL 08-12-2015 [facility] PAIN OTHER MEDICAL SPECIFIED IMAGING ASS SITE 66121 ABDOMINAL 08-11-2015 [facility] PAIN, [facility] GENERALIZED INC 22471 08-11-2015 [facility] TRANSPORTAT ION SER 42077 SHORTNESS 08-01-2015 [facility] OF BREATH LLC 3334 [place] 07-26-2015 [facility] V762 SCREENING 07-08-2015 [facility] MALIGNANT NEOPLASM OF THE CERVIX 9962 [facility] COMP 03-30-2015 IN MEDICAL NERVOUS SERVICES SYSTEM DEVICE IMPLANT&GRA FT V5302 NEUROPACEMA 03-30-2015 [facility] 4779 ALLERGIC 03-22-2015 [facility] CAUSE UNSPECIFIED 56992 ESOPHAGEAL 03-22-[address] [place] [address] [facility] 48129 ATROPHIC 03-22-[address] [place] [address] [facility] WITHOUT MENTION OF HEMORRHAGE 90216 OTHER SPEC 03-22-2015 [facility] WITHOUT MENTION HEMORRHAGE 84457 LOSS OF 03-22-2015 [facility] 31960 DIARRHEA 03-22-2015 [facility] V4589 OTHER 03-10-2015 [facility] L STATUS OTHER V719 OBSERVATION 03-10-2015 IN MEDICAL FOR SERV UNSPECIFIED [facility]OUNDATION SUSPECTED CONDITION 38550 DYSPHAGIA 03-09-2015 [facility]NSPECIF[facility] Medications Na ND [...] 00 RE 50 CA 54 17 17 DC LA 4 PH CH ZI AR AE ME MA L CY S CO OT LL EC C T PA ST E ME 00 04 09 0 30 30 ME 14 GA Ac LA 90 -0 -2 0. D 99 IN ti TO 45 2- 3- 00 CA 65 EY ve NI 18 20 20 0 RE 64 N 25 17 17 DC 3 2 PH CH MG AR AE MA L TA CY S BL ET LL C SE 00 03 09 0 60 30 ME 14 GA Ac NE 53 -1 -2 0. D 99 IN ti XO 64 9- 2- 00 CA 01 EY ve N- 08 20 20 0 RE 49 S 60 17 17 DC TA 1 PH CH BL AR AE ET MA L CY S LL C ST 00 11 09 0 30 30 ME 14 GA Ac OO 53 -0 -2 0. D 97 IN ti L 61 2- 0- 00 CA 27 EY ve SO 06 20 20 0 RE 11 FT 41 16 17 DC EN 0 PH CH ER AR AE MA L 25 CY S 0 MG LL C SO FT GE L LO 00 06 09 0 30 30 ME 14 GA Ac RA 78 -1 -1 0. D 98 IN ti TA 15 7- 9- 00 CA 35 EY ve DI 07 20 20 0 RE 58 NE 70 17 17 DC 1 PH CH 10 AR AE MA L MG CY S TA LL BL C ET TA 00 03 09 0 30 30 ME 14 GA Ac B- 90 -1 -1 0. D 97 IN ti A- 40 9- 8- 00 CA 40 EY ve 53 20 20 0 RE 84 TE 08 17 17 DC 0 PH CH TA AR AE BL MA L ET CY S LL C LO 00 06 08 0 30 30 ME 14 GA Ac RA 78 -1 -2 0. D 82 IN ti TA 15 7- 5- 00 CA 83 EY ve DI 07 20 20 0 RE 92 NE 70 17 17 DC 1 PH CH 10 AR AE MA L MG CY S TA LL BL C ET ME 00 04 08 0 30 30 ME 14 GA Ac LA 90 -0 -2 0. D 82 IN ti TO 45 2- 5- 00 CA 84 EY ve NI 18 20 20 0 RE 00 N 25 17 17 DC 3 2 PH CH MG AR AE MA L TA CY S BL ET LL C SE 00 03 08 0 60 30 ME 14 GA Ac NE 53 -1 -2 0. D 81 IN ti XO 64 9- 3- 00 CA 13 EY ve N- 08 20 20 0 RE 71 S 60 17 17 DC TA 1 PH CH BL AR AE ET MA L CY S LL C TA 00 03 08 0 30 30 ME 14 GA Ac B- 90 -1 -2 0. D 80 IN ti A- 40 9- 1- 00 CA 08 EY ve 53 20 20 0 RE 41 TE 08 17 17 DC 0 PH CH TA AR AE BL MA L ET CY S LL C ST 00 11 07 0 30 30 ME 14 GA Ac OO 53 -0 -3 0. D 68 IN ti L 61 2- 1- 00 CA 05 EY ve SO 06 20 20 0 RE 89 FT 41 16 17 DC EN 0 PH CH ER AR AE MA L 25 CY S 0 MG LL C SO FT GE L ME 00 04 07 0 30 30 ME 14 GA Ac LA 90 -0 -2 0. D 66 IN ti TO 45 2- 8- 00 CA 70 EY ve NI 18 20 20 0 RE 20 N 25 17 17 DC 3 2 PH CH MG AR AE MA L TA CY S BL ET LL C LO 00 06 07 0 30 30 ME 14 GA Ac RA 78 -1 -2 0. D 66 IN ti TA 15 7- 8- 00 CA 70 EY ve DI 07 20 20 0 RE 12 NE 70 17 17 DC 1 PH CH 10 AR AE MA L MG CY S TA LL BL C ET RE 53 07 07 0 11 10 ME 14 GA Ac ME 32 -2 -2 30 D 66 IN ti DY 90 5- 5- .0 CA 34 EY ve 16 20 20 00 RE 44 CA 54 17 17 DC LA 4 PH CH ZI AR AE ME MA L CY S CO OT LL EC C T PA ST E SE 00 03 07 0 60 30 ME 14 GA Ac NE 53 -1 -2 0. D 64 IN ti XO 64 9- 4- 00 CA 20 EY ve N- 08 20 20 0 RE 99 S 60 17 17 DC TA 1 PH CH BL AR AE ET MA L CY S LL C TA 00 03 07 0 30 30 ME 14 GA Ac B- 90 -1 -2 0. D 65 IN ti A- 40 9- 4- 00 CA 17 EY ve 53 20 20 0 RE 52 TE 08 17 17 DC 0 PH CH TA AR AE BL MA L ET CY S LL C ST 00 11 07 0 30 30 ME 14 GA Ac OO 53 -0 -0 0. D 50 IN ti L 61 2- 3- 00 CA 60 EY ve SO 06 20 20 0 RE 20 FT 41 16 17 DC EN 0 PH CH ER AR AE MA L 25 CY S 0 MG LL C SO FT GE L ME 00 04 07 0 30 30 ME 14 GA Ac LA 90 -0 -0 0. D 50 IN ti TO 45 2- 1- 00 CA 60 EY ve NI 18 20 20 0 RE 31 N 25 17 17 DC 3 2 PH CH MG AR AE MA L TA CY S BL ET LL C LO 00 06 07 0 30 30 ME 14 GA Ac RA 78 -1 -0 0. D 50 IN ti TA 15 7- 1- 00 CA 60 EY ve DI 07 20 20 0 RE 12 NE 70 17 17 DC 1 PH CH 10 AR AE MA L MG CY S TA LL BL C ET TA 00 03 06 0 30 30 ME 14 GA Ac B- 90 -1 -2 0. D 45 IN ti A- 40 9- 6- 00 CA 93 EY ve 53 20 20 0 RE 04 TE 08 17 17 DC 0 PH CH TA AR AE BL MA L ET CY S LL C SE 00 03 06 0 60 30 ME 14 GA Ac NE 53 -1 -2 0. D 47 IN ti XO 64 9- 6- 00 CA 35 EY ve N- 08 20 20 0 RE 41 S 60 17 17 DC TA 1 PH CH BL AR AE ET MA L CY S LL C ST 00 11 06 0 14 14 ME 14 GA Ac OO 53 -0 -2 0. D 42 IN ti L 61 2- 0- 00 CA 50 EY ve SO 06 20 20 0 RE 63 FT 41 16 17 DC EN 0 PH CH ER AR AE MA L 25 CY S 0 MG LL C SO FT GE L ME 00 04 06 0 14 14 ME 14 GA Ac LA 90 -0 -1 0. D 41 IN ti TO 45 2- 9- 00 CA 58 EY ve NI 18 20 20 0 RE 47 N 25 17 17 DC 3 2 PH CH MG AR AE MA L TA CY S BL ET LL C LO 00 06 06 0 14 14 ME 14 GA Ac RA 78 -1 -1 0. D 41 IN ti TA 15 7- 9- 00 CA 58 EY ve DI 07 20 20 0 RE 41 NE 70 17 17 DC 1 PH CH 10 AR AE MA L MG CY S TA LL BL C ET BA 00 [...] CY W TA LL BL C ET ZI 00 05 06 0 56 3 [...] LL EA C M BA 00 05 06 0 28 4 ME 12 AR Ac CI 16 -2 -0 3. D 51 NO ti TR 80 5- 6- 50 CA 72 LD ve AC 02 20 20 0 RE 61 IN 13 16 16 RI -P 1 PH CH OL AR AR YM MA D YX CY W IN LL OI C NT ME NT TA 00 03 06 0 30 30 [...] CY W NT ME LL NT C ZI 00 05 05 0 28 15 [...] IN LL OI C NT ME NT LO 45 03 05 0 30 30 [...] AR AR ME MA D CY W CO OT LL EC C T PA ST [...] Procedure DOS Code Location Performer Comment ECG 27930 [facility] ROUTINE 7 [facility] ECG W/LEAST 12 LDS TRCG ONLY W/O I&R RADEX 66387 [facility] ELBOW 2 7 [facility] VIEWS TRANS R0070 [facility] PRTBL 7 [facility] X-RAY EQP&PERS PEDRO/NRS PEDRO-TRIP 1 PT SET-UP Q0092 [facility] X-RAY EQUIPMENT DEBRIDEME 98776 SPECIAL SKRIP JR. NT NAIL 7 CARE ANY PODIATRY METHOD OF [place] 6/> DEBRIDEME 36358 SPECIAL SKRIP JR. NT NAIL 7 CARE ANY PODIATRY METHOD OF [place] 6/> BLOOD 01821 [facility] 7 HEALTH HEALTH COMPLETE ASSOCIATE ASSOCIATE AUTOMATED S S SBSQ 14578 [facility] 7 FACILITY CARE/DAY E/M STABLE 10 MIN COMPREHEN [address] HEALTH METABOLIC ASSOCIATE ASSOCIATE PANEL S S EASTON V G0471 [address] HEALTH TERRITORY SALES EXECUTIVE/URN ASSOCIATE ASSOCIATE SMP CATH S S IND SNF/LAB BHALF DRAFTER LANDSCAPE TRAVEL 1 P9603 [place] [address] HEALTH HEALTH NEC SUPPLY CHAIN LOGISTICS MANAGER ASSOCIATE SPEC; S S PRORAT ACTL MILE TRAVEL [address] HEALTH NEC SUPPLY CHAIN LOGISTICS MANAGER ASSOCIATE SPEC; S S PRORAT ACTL MILE EASTON V G0471 [place] [address] HEALTH HEALTH TERRITORY SALES EXECUTIVE/URN ASSOCIATE ASSOCIATE SMP CATH S S IND SNF/LAB BHALF DRAFTER LANDSCAPE DRUG [address] HEALTH VALPROIC ASSOCIATE ASSOCIATE DIPROPYLA S S CETIC ACID TOTAL SBSQ 67538 [facility] 7 FACILITY CARE/DAY E/M STABLE 10 MIN DRUG [address] HEALTH VALPROIC ASSOCIATE ASSOCIATE DIPROPYLA S S CETIC ACID TOTAL TRAVEL [address] NEC SUPPLY CHAIN LOGISTICS MANAGER ASSOCIATE SPEC; S S PRORAT ACTL MILE EASTON V G0471 [address] HEALTH TERRITORY SALES EXECUTIVE/URN ASSOCIATE ASSOCIATE SMP CATH S S IND SNF/LAB BHALF DRAFTER LANDSCAPE ECG 73064 [facility] 7 [facility] ECG W/LEAST 12 LDS TRCG ONLY W/O I&R SBSQ 29113 [facility] 7 FACILITY CARE/DAY E/M STABLE 10 MIN DEBRIDEME 56386 SPECIAL GRETCHEN INMAN NT NAIL 7 CARE ANY PODIATRY METHOD OF [place] 6/> E/M 85429 [facility] ANNUAL 7 NURSING FACILITY ASSESS STABLE 30 MIN SBSQ 42923 [facility] 6 [facility] FACILITY CARE/DAY E/M STABLE 10 MIN SBSQ 55170 [facility] 6 [facility] FACILITY CARE/DAY E/M STABLE 10 MIN URNLS DIP 51069 [place] [address] HEALTH HEALTH STICK/TAB ASSOCIATE ASSOCIATE CRISTY Walker REAGENT AUTO MICROSCOP Y CULTURE 75961 [facility] BACTERIAL HEALTH HEALTH ASSOCIATE ASSOCIATE QUANTTADEBORA Walker S VE COLONY COUNT URINE DEBRIDEME 81923 SPECIAL GRETCHEN INMAN NT NAIL 6 CARE [place] ANY PODIATRY METHOD OF [place] /> SBSQ 07737 [facility] 6 [facility] FACILITY CARE/DAY E/M STABLE 10 MIN TRAVEL 1 P9603 [facility] [place] [address] HEALTH HEALTH NEC SUPPLY CHAIN LOGISTICS MANAGER ASSOCIATE SPEC; S S PRORAT ACTL MILE EASTON V G0471 [facility] [place] [address] HEALTH HEALTH TERRITORY SALES EXECUTIVE/URN ASSOCIATE ASSOCIATE REED CATH S S IND SNF/LAB BHALF DRAFTER LANDSCAPE COMPREHEN 24494 [place] [address] HEALTH HEALTH METABOLIC ASSOCIATE ASSOCIATE PANEL S S SBSQ 93053 [facility] 6 [facility] FACILITY CARE/DAY E/M STABLE 10 MIN SBSQ 33222 [facility] 6 [facility] FACILITY CARE/DAY E/M STABLE 10 MIN ECG 37739 [facility] 6 LLC LLC ECG W/LEAST 12 LDS TRCG ONLY W/O I&R DEBRIDEME 80323 SPECIAL GRETCHEN INMAN NT NAIL 6 CARE [place] ANY PODIATRY METHOD OF [place] /> SBSQ 76394 [facility] 6 [facility] FACILITY CARE/DAY E/M STABLE 10 MIN EASTON V G0471 [place] [address] HEALTH HEALTH TERRITORY SALES EXECUTIVE/URN ASSOCIATE ASSOCIATE REED CATH S S IND SNF/LAB BHALF DRAFTER LANDSCAPE TRAVEL [address] MED 6 HEALTH HEALTH NEC SUPPLY CHAIN LOGISTICS MANAGER ASSOCIATE SPEC; S S PRORAT ACTL MILE BASIC 76212 [facility] METABOLIC 6 HEALTH HEALTH PANEL ASSOCIATE ASSOCIATE CALCIUM S S TOTAL TRANS R0070 [facility] PRTBL 6 LLC LLC X-RAY EQP&PERS PEDRO/NRS PEDRO-TRIP 1 PT SET-UP Q0092 [facility] X-RAY EQUIPMENT RADIOLOGI 13233 [facility] C 6 LLC LLC EXAMINATI ON KNEE 1/2 VIEWS INITIAL 64854 ARNRADHA [facility] NURSING 6 [facility] FACILITY CARE/DAY 25 MINUTES RADIOLOGI 71974 [facility] [facility] C EXAM 6 MEDICAL CHELA CHEST 2 IMAGING VIEWS ASS FRONTAL&L ATERAL ECG 77070 [facility] 6 [facility] W/LEAST P 12 LDS I&R ONLY RADIOLOGI 08969 [facility] MILLARD ALL C 6 MEDICAL EXAMINATI IMAGING ON CHEST ASS SINGLE VIEW FRONTAL GROUND A0425 [facility] MILEAGE 6 AMBULANCE AMBULANCE PER SERVICE SERVICE STATUTE MILE AMB A0427 [facility] SERVICE 6 AMBULANCE AMBULANCE ALS SERVICE SERVICE EMERGENCY TRANSPORT LEVEL 1 SBSQ 27263 [facility] 6 [facility] FACILITY CARE/DAY E/M STABLE 10 MIN HOSPITAL G0463 [facility] 6 Y Y T [facility] HOSPITAL HOSPITAL VISIT ASSESS & MGMT PT ELEC ZULEIMA 02070 [facility] 6 Y Y PLS GEN HOSPITAL HOSPITAL CPLX DP BRN 1ST HR NONEMERGE A0130 [facility] FEDERATED NCY 6 TRANSPORT TRANSPORT TRANSPORT ATION: ATION SER ATION SER DANIELLA ORTIZ SBSQ 41609 [facility] N[facility] 6 [facility] FACILITY CARE/DAY E/M STABLE 10 MIN ELEC ZULEIMA 55822 GISELA SILVA NSTIM 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 PLS GEN SERV CPLX DP FOUNDATIO BRN 1ST N HR HOSPITAL G0463 [facility] 6 Y Y T CLIN HOSPITAL HOSPITAL VISIT ASSESS & MGMT PT DEBRIDEME 44313 SPECIAL GRETCHEN JRAngel NT NAIL 6 CARE [place] ANY PODIATRY METHOD OF [place] 6/> MOTION 13101 [facility] FLUOR 6 MEM HOS[facility] HOS[facility] EVAL INC INC SWLNG FUNCJ C/V REC SWALLOWIN 93498 YOSVANY Alvarez FUNCJ 6 MEDICAL JUNE W/CINERAD IMAGING IOGRAPY/V ASS IDRADIOG SBSQ 10177 ARNRADHA [facility] NURSING 6 [facility] FACILITY CARE/DAY E/M STABLE 10 MIN HOSPITAL G0463 [facility] 6 Y Y T [facility] HOSPITAL HOSPITAL VISIT ASSESS & MGMT PT ELEC ZULEIMA 23129 GISELA JACKSON 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 PLS GEN SERV SMPL FOUNDATIO SC/PERPH N W/PRGRMG NONEMERGE A0130 [facility] FEDERATED NCY 6 TRANSPORT TRANSPORT TRANSPORT ATION: ATION SER ATION SER SKYLERI R VAN SET-UP Q0092 [facility] 6 LLC [employer] X-RAY EQUIPMENT TRANS R0070 [facility] PRTBL 6 [employer] LLC X-RAY EQP&PERS PEDRO/NRS PEDRO-TRIP 1 PT RADIOLOGI 60117 [facility] C 6 [employer] LLC EXAMINATI ON CHEST SINGLE VIEW FRONTAL OPHTH 96972 [facility] 6 CONTRACT TAVO XM&EVAL [facility] NEW PT 1/> VST DETERMINA 58645 [facility] TION 6 CONTRACT TAVO REFRACTIV [facility] SBSQ 08919 [facility] 6 [facility] FACILITY CARE/DAY E/M STABLE 10 MIN HOSPITAL G0463 [facility] 6 Y Y T CLIN HOSPITAL HOSPITAL VISIT ASSESS & MGMT PT ELEC ZULEIMA 46075 [facility] 6 Y Y PLS GEN HOSPITAL HOSPITAL SMPL SC/PERPH W/PRGRMG ELEC ZULEIMA 81833 GISELA SILVA NSTIM 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 NT NAIL 6 CARE [place] ANY PODIATRY METHOD OF [place]I 6/> ECG 84852 [facility] 6 [facility] LLC ECG W/LEAST 12 LDS TRCG ONLY W/O I&R E/M 99404 [facility] 6 [facility] FACILITY ASSESS STABLE 30 MIN SBSQ 04864 [facility] NURSING 5 [facility] FACILITY CARE/DAY E/M STABLE 10 MIN HOSPITAL G0463 [facility] 5 Y Y T [facility] HOSPITAL HOSPITAL VISIT ASSESS & MGMT PT NONEMERGE A0130 FEDERATED FEDERATED NCY 5 TRANSPORT TRANSPORT TRANSPORT ATION: ATION SER [facility] SER [facility] ZULEIMA 70350 [facility] 5 Y Y PLS [facility] CPLX DP BRN 1ST HR AMB A0427 [facility] SERVICE 5 AMBULANCE AMBULANCE ALS SERVICE SERVICE EMERGENCY TRANSPORT LEVEL 1 INJECTION J2405 [facility]JO 5 [facility] ONDANSETR INC INC ON HCL PER 1 MG COMPREHEN 12970 [facility] SIVE 5 [facility] METABOLIC INC INC PANEL GROUND A0425 [facility] AMBULANCE AMBULANCE [place] [address] [facility] C[facility] HEAD/BRAI 5 [facility] N W/O INC INC CONTRAST MATERIAL THER 46381 [facility] PROPH/DX 5 [facility] NJX IV INC INC PUSH SINGLE/1S T SBST/DRUG URNLS DIP 80396 [facility] CAMEJO 5 [facility] STICK/TAB INC INC LET REAGENT AUTO MICROSCOP Y THERAPEUT 08434 [facility] STER[place]ING[place] IC 5 [facility]OS[facility] INJECTION INC INC IV PUSH EACH NEW DRUG BLOOD 69539 [facility] COUNT 5 [facility] COMPLETE INC INC AUTO&AUTO DIFRNTL WBC URNLS DIP 03065 [facility] 5 HEALTH HEALTH STICK/TAB ASSOCIATE ASSOCIATE LET S S REAGENT AUTO MICROSCOP Y CULTURE 30584 [facility] BACTERIAL 5 HEALTH HEALTH ASSOCIATE ASSOCIATE QUANTTATI S S VE COLONY COUNT URINE HOSPITAL G0463 [facility] 5 Y Y T [facility] HOSPITAL HOSPITAL VISIT ASSESS & MGMT PT HOSPITAL G0463 [facility] 5 Y Y T [facility] HOSPITAL VISIT ASSESS & MGMT PT ELEC ZULEIMA 73793 [facility] 5 Y MAC PLS GEN HOSPITAL CPLX DP BRN 1ST HR NONEMERGE A0130 FEDERATED FEDERATED NCY 5 TRANSPORT TRANSPORT TRANSPORT ATION: ATION SER ATION SER DANIELLA ORTIZ SBSQ 31485 [facility] N[facility] 5 [facility] FACILITY CARE/DAY E/M STABLE 10 MIN SBSQ 92736 [facility] [place] NURSING 5 [facility]INA [facility] FACILITY CARE/DAY E/M STABLE 10 MIN GONADOTRO 49401 [facility] PIN 5 [facility] [place] [address] [facility] INFUSION 5 [facility] THERAPY/P INC INC ROPHYLAXI S /DX 1ST TO 1 [place] [address] [facility] INFUSION 5 [facility] THERAPY INC INC PROPHYLAX IS/DX EA HOUR ANES 23811 [facility] UPPER GI 5 ANESTH SHE ENDOSCOPY OF THE PROXIMAL BLUE TO DUODENUM ESOPHAGOG 06203 [facility] ASTRODUOD 5 PHYSICIAN CAM ENOSCOPY S GROUP TRANSORAL DIAGNOSTI C LOCM Q9967 [facility] [phone] [facility] MG/ML INC [place] [address] [facility] ABDOMEN & 5 MEDICAL PELVIS IMAGING W/CONTRAS ASS T MATERIAL BLOOD 47319 [facility] COUNT 5 [facility] COMPLETE INC INC AUTO&AUTO DIFRNTL WBC NONEMERG A0120 FEDERATED FEDERATED TRNSPRT: 5 MINI-BUS TRANSPORT TRANSPORT MTN ATION SER ATION SER AREA/OTH SYS HEPATIC 71740 [facility] FUNCTION 5 [facility] PANEL INC INC COLLECTIO 09629 [facility] N VENOUS 5 [facility] BLOOD INC INC VENIPUNCT URE BASIC 83506 [facility] METABOLIC 5 [facility] PANEL INC INC CALCIUM TOTAL TRANS R0070 [facility] PRTBL 5 [facility] X-RAY EQP&PERS PEDRO/NRS PEDRO-TRIP 1 PT SET-UP Q0092 [employer] [facility] PORTABLE 5 [facility] X-RAY EQUIPMENT RADIOLOGI 32838 [facility] EXAM 5 [facility] CHEST 2 VIEWS FRONTAL&L ATERAL SBSQ 57986 [facility] NURSING 5 [facility] FACILITY CARE/DAY E/M STABLE 10 MIN SCR G0145 [facility] CYTOPATH 5 [facility] CERV/VAG SCR AUTO&MNL RSCR PHYS ANES 01358 [place] [facility] 5 [facility] EXTREM[facility] SERVICES ES ANT TRUNK & PERINEUM NOS INSJ/RPLC 07873 [facility] [place] 5 Y Y CRANIAL [facility] NEUROSTIM GENER 2/> ELTRDS GENERATOR C1767 [facility] 5 Y Y NEUROSTIM [facility] ULATOR NONRECHAR GEABLE URINE 96516 [facility] 5 Y Y TEST [facility] VISUAL COLOR CMPRSN METHS RINGERS J7120 [facility] LACTATE 5 Y Y INFUSION [facility] UP TO 1000 CC THROMBOPL 73705 [facility] ASTIN 5 Y [facility] PARTIAL PLASMA/WH OLE BLOOD BASIC 16820 [facility] METABOLIC 5 Y Y PANEL [facility] CALCIUM TOTAL COLLECTIO 87457 [facility] N VENOUS 5 Y Y BLOOD [facility] VENIPUNCT URE PROTHROMB 14306 [facility] IN TIME 5 Y Y HOSPITAL HOSPITAL ECG [id number] [facility] ROUTINE [address] [facility] W/LEAST 12 LDS TRCG ONLY W/O I&R RADIOLOGI 14713 [facility] C EXAM 5 Y Y CHEST 2 [facility] VIEWS FRONTAL&L ATERAL BLOOD 53852 [facility] COUNT 5 Y Y COMPLETE [facility] AUTOMATED URNLS DIP 47540 [facility] 5 Y Y STICK/TAB [facility] LET REAGENT AUTO MICROSCOP Y SWALLOWIN 12411 [place] [facility] 5 [facility]LA W/CINERAD IMAGING IOGRAPY/V ASS IDRADIOG Encounters Encounter Start End Date Code Location Performer Type Date [facility] IN[facility]IENT 7 7 [facility] IN[facility] 7 7 [facility] 7 7 [facility] PROTOTYPE MACHINE [facility]PER[facility] 7 7 PROTOTYPE [facility]ACHINE [facility] 7 7 PROTOTYPE [facility]ACHINE [facility] 7 7 PROTOTYPE [facility]ACHINE [facility] 7 7 PROTOTYPE MACHINE OPERATOR S [facility] 7 7 [facility] 7 [facility] 7 [facility] 7 7 [facility] 7 7 [facility] 7 7 [facility] 6 6 [facility] 6 6 [facility] 6 6 [facility] 6 6 [facility] 6 6 [facility] 6 6 [facility] 6 6 [facility] 6 6 [facility] 6 6 [facility] 6 6 [facility] 6 [facility] 6 6 OF THE [facility] HOSP[facility] 6 6 [facility] 6 6 [facility] INC EMERGENCY 44178 RAJIV LEE DEPT 6 6 PHYSICIAN FOR [facility]ISIT S, PLLC HIGH SEVERITY& 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 6 6 Y T VISIT 5 [facility] UNIVERSIT - 6 6 Y [facility] T [facility] 6 [facility] 5 5 [facility] - OTHER E HOSPITAL UNIVERSIT - 5 5 Y [facility] BASH[facility] - 5 5 [facility] OUTPATIEN [facility] T EMERGENCY 17672 B[facility] 5 5 MEM H[facility]P DEPARTMEN INC T VISIT HIGH/URGE NT SEVERITY HOSPITAL UNIVERSIT [facility] 5 5 Y [facility] UNIVERSIT - 5 5 Y [facility] T [facility] 5 [facility] 5 [facility] OTHER E [facility]OSPITAL [facility] - 5 5 [facility] OUTPATIEN [facility] T HOSPITAL BASHIR - 5 5 [facility] OUTPATIEN [facility] T HOSPITAL BASHIR [facility] 5 5 [facility] OUTPATIEN INC T OFFICE 84204 [facility] 5 5 PHYSICIAN CAM T NEW 30 S GROUP MINUTES [facility] 5 5 [facility] - OTHER E OFFICE 60518 [facility] 5 5 Y T VISIT 5 [facility] - [address] [facility] UNIVERSIT [facility] 5 5 Y [facility] T OFFICE 98183 [facility] 5 5 Y T VISIT 5 [facility] UN[facility] - 5 5 Y [facility] T OFFICE 06772 [facility] 5 5 Y T VISIT [address] UNIVERSIT - 5 5 Y [facility] T OFFICE 45495 [facility] 5 5 NURSE LATONIA T VISIT PRACTITIO 25 NER GR MINUTES
--- OUTSIDE RECORDS SUMMARY | 2017-09-07 22:37 | External Medical Summary Rpt | CCD ---
Author Author , MIHAI HOLM Address Unknown Phone [email or web address] Providers Care Leave Coordinator Name Role Phone RAKESH SHIRAKESH CHA Unavailable Unavailable [facility], [facility] Unavailable [facility]available [facility], [facility] Unavailable Unavailable [facility], [facility] ARNOLD, ARNOLD Unavailable Unavailable ARNOLD TRINA, ARNOLD Unavailable Unavailable TRINA BEINEKE JUNE, BEINEKE Unavailable Unavailable JUNE BESSON TERESA, BESSON Unavailable Unavailable TERESA MILLARD ALL, MILLARD ALL Unavailable Unavailable JUDY MAC, JUDY Unavailable Unavailable [facility] Unavailable Unavailable SERVICE, [facility] Unavailable Unavailable SERVICE, [facility] Unavailable Unavailable [facility] [place] [place] MANISH CHELA, Unavailable Unavailable MANISH CHELA [facility], Unavailable Unavailable [facility] Unavailable Unavailable TRANSPORTATION SER, [facility] GUILIANI LATONIA, Unavailable Unavailable GUILIANI LATONIA [facility] Unavailable Unavailable INC, [facility] Unavailable Unavailable HOSPITAL P, [facility], Unavailable Unavailable [facility] Unavailable Unavailable IM[facility], [facility], Un[facility]available [facility] Unavailable Unavailable [...] Unavailable OF [place], [facility], Unavailable Unavailable [facility] ANGEL TIM Unavailable Unavailable RUSSELL LION HUNTER WALKER FOR, WALKER Unavailable Unavailable FOR Purpose Continuity of Care Document - 02-25-2015 through 2016 Problems Code Diagnosis DOS Provider Status G10 [place] 07-26-2017 [facility] J309 ALLERGIC 07-26-2017 [facility] UNSPECIFIED [id number] OTHER LONG 07-10-2017 [facility] CURRENT DRUG THERAPY N31717 PAIN IN 06-11-2017 [facility] RIGHT ELBOW LLC B351 TINEA 05-27-2017 [facility] UN[facility]ARE PODIATRY OF [place] M37834 PAIN IN 05-27-2017 [facility] RIGHT TOES CARE PODIATRY OF [place] T93763 PAIN IN 05-27-2017 SPECIAL LEFT TOES CARE PODIATRY OF [place] M6281 MUSCLE 02-25-2017 [facility] R4182 ALTERED 09-26-2016 [facility]US [facility] UNSPECIFIED E870 HYPEROSMOLA 05-16-[address] [facility] HYPERNATREM ASSOCIATES [place] J06972 PAIN IN 05-15-2016 [facility] LEFT KNEE LLC R918 OTHER 05-08-2016 [place] NONSPECIFIC MEDICAL ABNORMAL IMAGING ASS FINDING OF LUNG FIELD E46 UNSPECIFIED 05-07-2016 [facility] P ORIE MALNUTRITIO N J189 PNEUMONIA 05-07-2016 [facility] P R0989 OTH SPEC SX 05-07-2016 [place] & SIGNS MEDICAL INVLV THE IMAGING ASS CIRC & RESP SYS R509 FEVER 05-07-2016 [facility] UNSPECIFIED [facility]YSICIANS, PLLC R58 HEMORRHAGE 05-07-2016 [facility] NOT [facility]BULANCE ELSEWHERE SERVICE CLASSIFIED R64 CACHEXIA 05-07-2016 [facility] Z681 BODY MASS 05-07-2016 [facility] INDEX 19.9 [facility] OR LESS INC ADULT R69 ILLNESS 04-12-2016 [facility] UNSPECIFIED TRANSPORTAT ION SER Z9689 PRESENCE OF 04-12-2016 [place] [facility] OTHER SERV SPECIFIED [facility] FUNCTIONAL IMPLANTS K219 GASTRO-ESOP 03-22-2016 [facility] DISEASE WITHOUT ESOPHAGITIS R1310 DYSPHAGIA 03-22-2016 [facility] Z4542 ENCOUNTER 03-22-2016 [place] [facility] MANAGEMENT NEUROPACEMA KER J690 PNEUMONITIS 02-03-2016 [facility] DUE TO LLC INHALATION OF FOOD AND VOMIT H5213 MYOPIA 01-30-2016 [facility] H524 PRESBYOPIA 01-30-2016 [facility] PLL Z4549 ENCOUNTER 01-19-2016 [facility] MGMT OTH IMPLANTED NS DEVICE Z9889 OTHER 01-19-2016 [facility] POSTPROCEDU RAL STATES R262 DIFFICULTY 10-13-2015 [facility] NOT ELSEWHERE CLASSIFIED R51 HEADACHE 10-12-2015 [facility] [id number] CONTUSION 10-12-2015 [facility] OTHER PART [facility] OF HEAD INC INITIAL ENCOUNTER K95VPXC UNSPECIFIED 10-12-2015 [facility] INITIAL SERVICE ENCOUNTER R8290 UNSPECIFIED 09-30-2015 [facility] ABNORMAL HEALTH FINDINGS IN ASSOCIATES URINE 45402 ABDOMINAL 08-16-2015 COMMUNITY PAIN, ANESTH OF UNSPECIFIED THE BLUE SITE 84789 ABDOMINAL 08-16-2015 [facility] PAIN, PHYSICIANS EPIGASTRIC GROUP 15232 UNSPECIFIED 08-12-2015 [facility] N 5920 CALCULUS OF 08-12-2015 [place] [facility] 39152 NAUSEA 08-12-2015 [place] [facility]ONE [facility] 74992 ABDOMINAL 08-12-2015 [facility] PAIN, [facility] PERIUMBILIC INC 34347 ABDOMINAL 08-12-2015 [place] PAIN OTHER MEDICAL SPECIFIED IMAGING ASS SITE 84313 ABDOMINAL 08-11-2015 [facility] PAIN, [facility] GENERALIZED INC 64453 08-11-2015 [facility] TRANSPORTAT ION SER 56926 SHORTNESS 08-01-2015 [facility] OF BREATH LLC 3334 [place] 07-26-2015 [facility] V762 SCREENING 07-08-2015 [facility] MALIGNANT NEOPLASM OF THE CERVIX 9962 [facility] COMP 03-30-2015 [facility] DEVICE IMPLANT&GRA FT V5302 NEUROPACEMA 03-30-2015 [facility] 4779 ALLERGIC 03-22-2015 [facility] CAUSE UNSPECIFIED 03195 ESOPHAGEAL 03-22-2015 [facility] RE[facility]UX [facility] 06858 ATROPHIC 03-22-2015 [facility] GASTRITIS [facility] WITHOUT MENTION OF HEMORRHAGE 54342 OTHER SPEC 03-22-2015 [facility] WITHOUT MENTION HEMORRHAGE 80291 LOSS OF 03-22-2015 [facility] 10930 DIARRHEA 03-22-2015 [facility] V4589 OTHER 03-10-2015 [facility] STATUS OTHER V719 OBSERVATION 03-10-2015 [facility] SERV UNSPECIFIED [facility]OUNDATION SUSPECTED CONDITION 90551 DYSPHAGIA 03-09-2015 [place] UNSPECIFIED [facility] IMAGING ASS Medications Na ND [...] 00 RE 50 CA 54 17 17 [place] 4 PH CH ZI AR AE ME MA L CY S DC OT LL EC C T PA ST E ME 00 04 09 0 30 30 ME 14 GA Ac LA 90 -0 -2 0. D 99 IN ti TO 45 2- 3- 00 CA 65 EY ve NI 18 20 20 0 RE 64 N 25 17 17 [place] 3 2 PH CH MG AR AE MA L TA CY S BL ET LL C SE 00 03 09 0 60 30 ME 14 GA Ac NE 53 -1 -2 0. D 99 IN ti XO 64 9- 2- 00 CA 01 EY ve N- 08 20 20 0 RE 49 S 60 17 17 [place] TA 1 PH CH BL AR AE ET MA L CY S LL C ST 00 11 09 0 30 30 ME 14 GA Ac OO 53 -0 -2 0. D 97 IN ti L 61 2- 0- 00 CA 27 EY ve SO 06 20 20 0 RE 11 FT 41 16 17 [place] EN 0 PH CH ER AR AE MA L 25 CY S 0 MG LL C SO FT GE L LO 00 06 09 0 30 30 ME 14 GA Ac RA 78 -1 -1 0. D 98 IN ti TA 15 7- 9- 00 CA 35 EY ve DI 07 20 20 0 RE 58 NE 70 17 17 [place] 1 PH CH 10 AR AE MA L MG CY S TA LL BL C ET TA 00 03 09 0 30 30 ME 14 GA Ac B- 90 -1 -1 0. D 97 IN ti A- 40 9- 8- 00 CA 40 EY ve 53 20 20 0 RE 84 TE 08 17 17 [place] 0 PH CH TA AR AE BL MA L ET CY S LL C LO 00 06 08 0 30 30 ME 14 GA Ac RA 78 -1 -2 0. D 82 IN ti TA 15 7- 5- 00 CA 83 EY ve DI 07 20 20 0 RE 92 NE 70 17 17 [place] 1 PH CH 10 AR AE MA L MG CY S TA LL BL C ET ME 00 04 08 0 30 30 ME 14 GA Ac LA 90 -0 -2 0. D 82 IN ti TO 45 2- 5- 00 CA 84 EY ve NI 18 20 20 0 RE 00 N 25 17 17 [place] 3 2 PH CH MG AR AE MA L TA CY S BL ET LL C SE 00 03 08 0 60 30 ME 14 GA Ac NE 53 -1 -2 0. D 81 IN ti XO 64 9- 3- 00 CA 13 EY ve N- 08 20 20 0 RE 71 S 60 17 17 [place] TA 1 PH CH BL AR AE ET MA L CY S LL C TA 00 03 08 0 30 30 ME 14 GA Ac B- 90 -1 -2 0. D 80 IN ti A- 40 9- 1- 00 CA 08 EY ve 53 20 20 0 RE 41 TE 08 17 17 [place] 0 PH CH TA AR AE BL MA L ET CY S LL C ST 00 11 07 0 30 30 ME 14 GA Ac OO 53 -0 -3 0. D 68 IN ti L 61 2- 1- 00 CA 05 EY ve SO 06 20 20 0 RE 89 FT 41 16 17 [place] EN 0 PH CH ER AR AE MA L 25 CY S 0 MG LL C SO FT GE L ME 00 04 07 0 30 30 ME 14 GA Ac LA 90 -0 -2 0. D 66 IN ti TO 45 2- 8- 00 CA 70 EY ve NI 18 20 20 0 RE 20 N 25 17 17 [place] 3 2 PH CH MG AR AE MA L TA CY S BL ET LL C LO 00 06 07 0 30 30 ME 14 GA Ac RA 78 -1 -2 0. D 66 IN ti TA 15 7- 8- 00 CA 70 EY ve DI 07 20 20 0 RE 12 NE 70 17 17 [place] 1 PH CH 10 AR AE MA L MG CY S TA LL BL C ET RE 53 07 07 0 11 10 ME 14 GA Ac ME 32 -2 -2 30 D 66 IN ti DY 90 5- 5- .0 CA 34 EY ve 16 20 20 00 RE 44 CA 54 17 17 [place] LA 4 PH CH ZI AR AE ME MA L CY S DC OT LL EC C T PA ST E SE 00 03 07 0 60 30 ME 14 GA Ac NE 53 -1 -2 0. D 64 IN ti XO 64 9- 4- 00 CA 20 EY ve N- 08 20 20 0 RE 99 S 60 17 17 [place] TA 1 PH CH BL AR AE ET MA L CY S LL C TA 00 03 07 0 30 30 ME 14 GA Ac B- 90 -1 -2 0. D 65 IN ti A- 40 9- 4- 00 CA 17 EY ve 53 20 20 0 RE 52 TE 08 17 17 [place] 0 PH CH TA AR AE BL MA L ET CY S LL C ST 00 11 07 0 30 30 ME 14 GA Ac OO 53 -0 -0 0. D 50 IN ti L 61 2- 3- 00 CA 60 EY ve SO 06 20 20 0 RE 20 FT 41 16 17 [place] EN 0 PH CH ER AR AE MA L 25 CY S 0 MG LL C SO FT GE L ME 00 04 07 0 30 30 ME 14 GA Ac LA 90 -0 -0 0. D 50 IN ti TO 45 2- 1- 00 CA 60 EY ve NI 18 20 20 0 RE 31 N 25 17 17 [place] 3 2 PH CH MG AR AE MA L TA CY S BL ET LL C LO 00 06 07 0 30 30 ME 14 GA Ac RA 78 -1 -0 0. D 50 IN ti TA 15 7- 1- 00 CA 60 EY ve DI 07 20 20 0 RE 12 NE 70 17 17 [place] 1 PH CH 10 AR AE MA L MG CY S TA LL BL C ET TA 00 03 06 0 30 30 ME 14 GA Ac B- 90 -1 -2 0. D 45 IN ti A- 40 9- 6- 00 CA 93 EY ve 53 20 20 0 RE 04 TE 08 17 17 [place] 0 PH CH TA AR AE BL MA L ET CY S LL C SE 00 03 06 0 60 30 ME 14 GA Ac NE 53 -1 -2 0. D 47 IN ti XO 64 9- 6- 00 CA 35 EY ve N- 08 20 20 0 RE 41 S 60 17 17 [place] TA 1 PH CH BL AR AE ET MA L CY S LL C ST 00 11 06 0 14 14 ME 14 GA Ac OO 53 -0 -2 0. D 42 IN ti L 61 2- 0- 00 CA 50 EY ve SO 06 20 20 0 RE 63 FT 41 16 17 [place] EN 0 PH CH ER AR AE MA L 25 CY S 0 MG LL C SO FT GE L ME 00 04 06 0 14 14 ME 14 GA Ac LA 90 -0 -1 0. D 41 IN ti TO 45 2- 9- 00 CA 58 EY ve NI 18 20 20 0 RE 47 N 25 17 17 [place] 3 2 PH CH MG AR AE MA L TA CY S BL ET LL C LO 00 06 06 0 14 14 ME 14 GA Ac RA 78 -1 -1 0. D 41 IN ti TA 15 7- 9- 00 CA 58 EY ve DI 07 20 20 0 RE 41 NE 70 17 17 [place] 1 PH CH 10 AR AE MA [...] AR AR ME MA D CY W DC OT LL EC C T PA ST [...] Procedure DOS Code Location Performer Comment ECG 71718 [facility] ROUTINE 7 [facility] ECG W/LEAST 12 LDS TRCG ONLY W/O I&R RADEX 39431 [facility] ELBOW 2 7 [facility] VIEWS TRANS R0070 [facility] PRTBL 7 [facility] X-RAY EQP&PERS PEDRO/NRS PEDRO-TRIP 1 PT SET-UP Q0092 [employer] [facility] LLC X-RAY EQUIPMENT DEBRIDEME 68292 SPECIAL SKRIP JR. NT NAIL 7 CARE ANY PODIATRY METHOD OF [place]HAI 6/> DEBRIDEME 57061 SPECIAL SKRIP JR. NT NAIL 7 CARE ANY PODIATRY METHOD OF [place] 6/> BLOOD 50463 [facility] 7 HEALTH HEALTH COMPLETE ASSOCIATE ASSOCIATE AUTOMATED S S SBSQ 46798 [facility] FACILITY CARE/DAY E/M STABLE 10 MIN COMPREHEN [address] HEALTH METABOLIC ASSOCIATE ASSOCIATE PANEL S S EASTON V G0471 [address] HEALTH SATELLITE INSTALLER/URN ASSOCIATE ASSOCIATE SMP CATH S S IND SNF/LAB BHALF WOOD BORER TRAVEL 1 P9603 [place] [address] HEALTH HEALTH NEC GRADUATE STUDENT INSTRUCTOR ASSOCIATE SPEC; S S PRORAT ACTL MILE TRAVEL [address] HEALTH NEC GRADUATE STUDENT INSTRUCTOR ASSOCIATE SPEC; S S PRORAT ACTL MILE EASTON V G0471 [place] [address] HEALTH HEALTH SATELLITE INSTALLER/URN ASSOCIATE ASSOCIATE SMP CATH S S IND SNF/LAB BHALF WOOD BORER DRUG [address] HEALTH VALPROIC ASSOCIATE ASSOCIATE DIPROPYLA S S CETIC ACID TOTAL SBSQ 24520 [facility] FACILITY CARE/DAY E/M STABLE 10 MIN DRUG [address] HEALTH VALPROIC ASSOCIATE ASSOCIATE DIPROPYLA S S CETIC ACID TOTAL TRAVEL [address] NEC GRADUATE STUDENT INSTRUCTOR ASSOCIATE SPEC; S S PRORAT ACTL MILE EASTON V G0471 [address] HEALTH SATELLITE INSTALLER/URN ASSOCIATE ASSOCIATE SMP CATH S S IND SNF/LAB BHALF WOOD BORER ECG 54646 [facility] R[facility]INE 7 LLC LLC ECG W/LEAST 12 LDS TRCG ONLY W/O I&R SBSQ 15489 [facility] FACILITY CARE/DAY E/M STABLE 10 MIN DEBRIDEME 48113 SPECIAL GRETCHEN INMAN NT NAIL 7 CARE ANY PODIATRY METHOD OF [place]HAI 6/> E/M 04341 [facility] 7 NURSING FACILITY ASSESS STABLE 30 MIN SBSQ 47598 [facility] 6 [facility] FACILITY CARE/DAY E/M STABLE 10 MIN SBSQ 48012 [facility] 6 [facility] CARE/DAY E/M STABLE 10 MIN URNLS DIP 84369 [place] [address] HEALTH HEALTH STICK/TAB ASSOCIATE ASSOCIATE CRISTY Walker REAGENT AUTO MICROSCOP Y CULTURE 58851 [facility] BACTERIAL HEALTH HEALTH ASSOCIATE ASSOCIATE QUANTTADEBORA Walker S VE COLONY COUNT URINE DEBRIDEME 26654 SPECIAL GRETCHEN INMAN NT NAIL 6 CARE TRINA ANY PODIATRY METHOD OF [place]I /> SBSQ 31479 [facility] CARE/DAY E/M STABLE 10 MIN TRAVEL 1 P9603 [facility] [place] [address] HEALTH HEALTH NEC GRADUATE STUDENT INSTRUCTOR ASSOCIATE SPEC; S S PRORAT ACTL MILE EASTON V G0471 [place] [place] [address] HEALTH HEALTH SATELLITE INSTALLER/URN ASSOCIATE ASSOCIATE REED CATH S S IND SNF/LAB BHALF WOOD BORER COMPREHEN [address] [place] [address] HEALTH HEALTH METABOLIC ASSOCIATE ASSOCIATE PANEL S S SBSQ 93464 [facility] CARE/DAY E/M STABLE 10 MIN SBSQ 97958 [facility] 6 [facility] CARE/DAY E/M STABLE [address] [facility] 6 LLC LLC ECG W/LEAST 12 LDS TRCG ONLY W/O I&R DEBRIDEME 82068 SPECIAL GRETCHEN INMAN NT NAIL 6 CARE TRINA ANY PODIATRY METHOD OF [place]I /> SBSQ 36502 [facility] 6 [facility] CARE/DAY E/M STABLE 10 MIN EASTON V G0471 [place] [address] HEALTH HEALTH SATELLITE INSTALLER/URN ASSOCIATE ASSOCIATE REED CATH S S IND SNF/LAB BHALF WOOD BORER TRAVEL [address] [facility] 6 HEALTH HEALTH NEC GRADUATE STUDENT INSTRUCTOR ASSOCIATE SPEC; S S PRORAT ACTL MILE BASIC 28719 [facility] METABOLIC 6 HEALTH HEALTH PANEL ASSOCIATE ASSOCIATE CALCIUM S S TOTAL TRANS R0070 [facility] PRTBL 6 LLC LLC X-RAY EQP&PERS PEDRO/NRS PEDRO-TRIP 1 PT SET-UP Q0092 [facility] X-RAY EQUIPMENT RADIOLOGI 49399 [facility] C 6 LLC LLC EXAMINATI ON KNEE 1/2 VIEWS INITIAL 63378 ARNRADHA [facility] NUR[facility] 6 TRINA TRINA FACILITY CARE/DAY 25 MINUTES RADIOLOGI 86192 [place] MANISH C EXAM 6 MEDICAL CHELA CHEST 2 IMAGING VIEWS ASS FRONTAL&L ATERAL ECG 38285 [facility] 6 [facility] W/LEAST P 12 LDS I&R ONLY RADIOLOGI 24221 [place] MILLARD ALL C 6 MEDICAL EXAMINATI IMAGING ON CHEST ASS SINGLE VIEW FRONTAL GROUND A0425 [facility] MILEAGE 6 AMBULANCE AMBULANCE PER SERVICE SERVICE STATUTE MILE AMB A0427 [facility] SERVICE 6 AMBULANCE AMBULANCE ALS SERVICE SERVICE EMERGENCY TRANSPORT LEVEL 1 SBSQ 38728 [facility] CARE/DAY E/M STABLE 10 MIN HOSPITAL G0463 [facility] 6 Y Y T [facility] HOSPITAL VISIT ASSESS & MGMT PT ELEC ZULEIMA 37275 [facility] 6 Y Y PLS GEN HOSPITAL HOSPITAL CPLX DP BRN 1ST HR NONEMERGE A0130 [facility] NCY 6 TRANSPORT TRANSPORT TRANSPORT ATION: ATION SER ATION SER DANIELLA ORTIZ SBSQ 79794 [facility] 6 [facility] CARE/DAY E/M STABLE 10 MIN ELEC ZULEIMA 16320 GISELA SILVA NSTIM 6 MEDICAL LION HUNTER PLS GEN SERV CPLX DP FOUNDATIO BRN 1ST N HR HOSPITAL G0463 [facility] 6 Y Y T [facility] HOSPITAL VISIT ASSESS & MGMT PT DEBRIDEME 57455 SPECIAL GRETCHEN JRAngel NT NAIL 6 CARE TRINA ANY PODIATRY METHOD OF [place]HAI 6/> MOTION 15513 [facility]JO FLUOR 6 [facility] EVAL INC INC SWLNG FUNCJ C/V REC SWALLOWIN 67635 YOSVANY Alvarez FUNCJ 6 MEDICAL JUNE W/CINERAD IMAGING IOGRAPY/V ASS IDRADIOG SBSQ 53892 ARNRADHA [facility] N[facility] 6 [facility]INA TRINA FACILITY CARE/DAY E/M STABLE 10 MIN HOSPITAL G0463 [facility] 6 Y Y T [facility] HOSPITAL VISIT ASSESS & MGMT PT ELEC ZULEIMA 26829 GISELA JACKSON 6 MEDICAL LION HUNTER PLS GEN SERV SMPL FOUNDATIO SC/PERPH N W/PRGRMG NONEMERGE A0130 [facility]ERATED FEDERATED NCY 6 TRANSPORT TRANSPORT TRANSPORT ATION: ATION SER ATION SER SKYLERI R VAN SET-UP Q0092 [facility] 6 LLC Insurity X-RAY EQUIPMENT TRANS R0070 [facility] PRTBL 6 [facility] LLC X-RAY EQP&PERS PEDRO/NRS PEDRO-TRIP 1 PT RADIOLOGI 58217 [facility] C 6 Ins[facility] LLC EXAMINATI ON CHEST SINGLE VIEW FRONTAL OPHTH 76412 [facility] 6 CONTRACT TAVO XM&EVAL [facility]/> VST DETERMINA 14447 [facility] TION 6 CONTRACT TAVO REFRACTIV [facility] E [facility] SBSQ 73361 [facility] 6 [facility] TRINA FACILITY CARE/DAY E/M STABLE 10 MIN HOSPITAL G0463 [facility] 6 Y Y T [facility] HOSPITAL VISIT ASSESS & MGMT PT ELEC ZULEIMA 23465 [facility] 6 Y Y PLS GEN HOSPITAL HOSPITAL SMPL SC/PERPH W/PRGRMG ELEC ZULEIMA 97215 GISELA SILVA NSTIM 6 MEDICAL LION HUNTER PLS GEN SERV SMPL FOUNDATIO SC/PERPH N W/PRGRMG ELEC ZULEIMA 12294 [facility] 6 Y Y PLS [facility] CPLX DP BRN 1ST HR NONEMERGE A0130 [facility] FEDERATED NCY 6 TRANSPORT TRANSPORT TRANSPORT ATION: ATION SER ATION SER [facility] G0463 [facility] 6 Y Y T [facility] HOSPITAL VISIT ASSESS & MGMT PT SBSQ 92361 [facility] 6 [facility] CARE/DAY E/M STABLE 10 MIN DEBRIDEME 02946 SPECIAL SKRIP JR. NT NAIL 6 CARE TRINA ANY PODIATRY METHOD OF [place]HAI 6/> ECG 46558 [facility] R[facility]INE 6 LLC LLC ECG W/LEAST 12 LDS TRCG ONLY W/O I&R E/M 49484 [facility] 6 [facility] FACILITY ASSESS STABLE 30 MIN SBSQ 22480 [facility] 5 [facility] CARE/DAY E/M STABLE 10 MIN HOSPITAL G0463 [facility] 5 Y Y T [facility] HOSPITAL VISIT ASSESS & MGMT PT NONEMERGE A0130 FEDERATED FEDERATED NCY 5 TRANSPORT TRANSPORT TRANSPORT ATION: ATION SER [facility] SER [facility] ZULEIMA 01752 [facility] 5 Y Y PLS [facility] CPLX DP BRN 1ST HR AMB A0427 [facility] SERVICE 5 AMBULANCE AMBULANCE ALS SERVICE SERVICE EMERGENCY TRANSPORT LEVEL 1 INJECTION J2405 [facility] CAMEJO 5 [facility] ONDANSETR INC INC ON HCL PER 1 MG COMPREHEN 65976 [facility]JO SIVE 5 [facility] METABOLIC INC INC PANEL GROUND A0425 [facility] AM[facility]ULANCE AMBULANCE [place] [address] [facility] C[facility] HEAD/BRAI 5 [facility] N W/O INC INC CONTRAST MATERIAL THER 03358 [facility] PROPH/DX 5 [facility] NJX IV INC INC PUSH SINGLE/1S T SBST/DRUG URNLS DIP 24858 [facility] CAMEJO 5 [facility] STICK/TAB INC INC LET REAGENT AUTO MICROSCOP Y THERAPEUT 52501 [facility] STER[place] IC 5 [facility] INJECTION INC INC IV PUSH EACH NEW DRUG BLOOD 92254 [facility] CAMEJO COUNT 5 [facility] COMPLETE INC INC AUTO&AUTO DIFRNTL WBC URNLS DIP 46184 [facility] PR[facility]IG 5 HEALTH HEALTH STICK/TAB ASSOCIATE ASSOCIATE LET S S REAGENT AUTO MICROSCOP Y CULTURE 12570 PR[facility]IG PR[facility]DEINIG BACTERIAL 5 HEALTH HEALTH ASSOCIATE ASSOCIATE QUANTTATI S S VE COLONY COUNT URINE HOSPITAL G0463 [facility] 5 Y Y T [facility] HOSPITAL VISIT ASSESS & MGMT PT HOSPITAL G0463 [facility] 5 Y Y T [facility] HOSPITAL VISIT ASSESS & MGMT PT ELEC ZULEIMA 24263 [facility] 5 Y MAC PLS GEN HOSPITAL CPLX DP BRN 1ST HR NONEMERGE A0130 [facility] FEDERATED NCY 5 TRANSPORT TRANSPORT TRANSPORT ATION: ATION SER ATION SER DANIELLA ORTIZ SBSQ 46047 [facility] NURSING 5 TRINA TRINA FACILITY CARE/DAY E/M STABLE 10 MIN SBSQ 37066 [facility]OLD NURSING 5 TRINA TRINA FACILITY CARE/DAY E/M STABLE 10 MIN GONADOTRO 17726 [facility]JO PIN 5 [facility] [place] [address] B[facility] INFUSION 5 [facility] THERAPY/P INC INC ROPHYLAXI S /DX 1ST TO 1 [place] [address] [facility] C[facility]JO INFUSION 5 [facility] THERAPY INC INC PROPHYLAX IS/DX EA HOUR ANES 26213 [facility] UPPER GI 5 ANESTH SHE ENDOSCOPY OF THE PROXIMAL BLUE TO DUODENUM ESOPHAGOG 08687 [facility] INGA ASTRODUOD 5 PHYSICIAN CAM ENOSCOPY S GROUP TRANSORAL DIAGNOSTI C LOCM Q9967 B[facility] CAMEJO [phone] 5 [facility] MG/ML INC [place] [address] [place] [facility] ALL ABDOMEN & 5 MEDICAL PELVIS IMAGING W/CONTRAS ASS T MATERIAL BLOOD 94637 [facility]JO COUNT 5 [facility] COMPLETE INC INC AUTO&AUTO DIFRNTL WBC NONEMERG A0120 [facility] FEDERATED TRNSPRT: 5 MINI-BUS TRANSPORT TRANSPORT MTN ATION SER ATION SER AREA/OTH SYS HEPATIC 55522 [facility] FUNCTION 5 [facility] PANEL INC INC COLLECTIO 99415 [facility] N VENOUS 5 [facility] BLOOD INC INC VENIPUNCT URE BASIC 94934 [facility] METABOLIC 5 [facility] PANEL INC INC CALCIUM TOTAL TRANS R0070 [facility] PRTBL 5 [facility] X-RAY EQP&PERS PEDRO/NRS PEDRO-TRIP 1 PT SET-UP Q0092 [employer] [facility] PORTABLE 5 [facility] X-RAY EQUIPMENT RADIOLOGI [facility]11 [facility] 5 [facility] CHEST 2 VIEWS FRONTAL&L ATERAL SBSQ 23713 [facility] 5 [facility] CARE/DAY E/M STABLE 10 MIN SCR G0145 [facility], CYTOPATH 5 [facility] CERV/VAG SCR AUTO&MNL RSCR PHYS ANES 87363 [place] [facility] YURIDIA INTEG 5 MEDICAL EXTREMITI SERVICES ES ANT TRUNK & PERINEUM NOS INSJ/RPLC 99826 [facility] 5 Y Y CRANIAL [facility] NEUROSTIM GENER 2/> ELTRDS GENERATOR C1767 [facility] 5 Y Y NEUROSTIM [facility] ULATOR NONRECHAR GEABLE URINE 20082 [facility] 5 Y Y TEST [facility] VISUAL COLOR CMPRSN METHS RINGERS J7120 [facility] LACTATE 5 Y Y INFUSION [facility] UP TO 1000 CC THROMBOPL 29832 [facility] ASTIN 5 Y Y TIME [facility] PARTIAL PLASMA/WH OLE BLOOD BASIC 45705 [facility] METABOLIC 5 Y Y PANEL [facility] CALCIUM TOTAL COLLECTIO 10040 [facility] N VENOUS 5 Y Y BLOOD [facility] VENIPUNCT URE PROTHROMB 28345 [facility] IN TIME 5 Y Y HOSPITAL HOSPITAL ECG 66747 [facility] ROUTINE 5 Y Y ECG [facility] W/LEAST 12 LDS TRCG ONLY W/O I&R RADIOLOGI 45645 [facility] C EXAM 5 Y Y CHEST 2 [facility] VIEWS FRONTAL&L ATERAL BLOOD 06975 [facility] COUNT 5 Y Y COMPLETE [facility] AUTOMATED URNLS DIP 49484 [facility] 5 Y Y STICK/TAB [facility] LET REAGENT AUTO MICROSCOP Y [place] [address] [place] [facility] RAMSAYPurvi 5 MEDICAL [facility]LA W/CINERAD IMAGING IOGRAPY/V ASS IDRADIOG Encounters Encounter Start End Date Code Location Performer Type Date [facility] 7 7 [facility] 7 7 [facility] [facility] 7 OF THE [facility] HOSPICE 7 7 OF THE [facility] HOS[facility] 7 7 OF [facility] HOSPICE 7 7 OF [facility] HOSPICE 7 7 OF [facility] HOS[facility] HOSPICE 6 6 OF [facility] HOS[facility] HOSPICE 6 6 OF [facility] HOS[facility]ICE HOSPICE 6 6 OF [facility] HOS[facility] HOSPICE 6 6 OF [facility] HOSPICE 6 6 OF [facility] HOSPICE 6 6 OF [facility] HOSPICE 6 6 OF [facility] HOSPICE 6 6 OF [facility] HOSPICE 6 6 OF [facility] HOSPICE 6 6 OF [facility] HOSPICE 6 6 OF [facility] HOSPICE 6 6 OF [facility] 6 6 OF [facility] 6 [facility] - 6 6 [facility] EMERGENCY 27589 RAJIV LEE DEPT 6 6 PHYSICIAN FOR VISIT S, PLLC HIGH [facility]VERITY& [facility] 6 6 [facility] UNIVERSIT - 6 6 Y [facility] T OFFICE 19778 GISELA SILVA OUTPATIEN 6 6 MEDICAL LION HUNTER T VISIT SERV 15 FOUNDATIO MINUTES [facility] 6 6 [facility] UNIVERSIT - 6 6 Y [facility] T OFFICE 05180 GISELA SILVA OUTPATIEN 6 6 MEDICAL 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 T VISIT SERV 15 FOUNDATIO MINUTES [facility] BASH[facility] - 6 6 [facility] OUTPATIEN [facility] 6 [facility] UNIVERSIT - 6 6 Y [facility] T OFFICE 98814 GISELA SILVA [facility] 6 6 MEDICAL 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 HUNTER T VISIT SERV 15 FOUNDATIO MINUTES N [facility] 6 6 [facility] OTHER E OFFICE 53470 UNIVERSIT [facility] 6 6 Y T VISIT 5 [facility] UNIVERSIT - 6 6 Y [facility] T [facility] 6 6 [facility] E [facility] 6 6 [facility] 5 5 [facility] 5 5 [facility] OUTPATIEN [facility] T EMERGENCY 63881 BASHIR 5 5 MEM HOSP DEPARTMEN INC T VISIT HIGH/URGE NT SEVERITY HOSPITAL [facility] - [facility] 5 [facility] 5 5 Y [facility] T [facility] 5 5 [facility] E [facility] 5 5 [facility] E HOSPITAL [facility] - 5 5 MEM HOSP OUTPATIEN [facility] T HOSPITAL BASH[facility] - 5 5 MEM HOSP OUTPATIEN [facility] T HOSPITAL BASHIR - 5 5 MEM HOSP OUTPATIEN INC T OFFICE 03406 [facility] 5 5 PHYSICIAN CAM T NEW 30 S GROUP MINUTES [facility] 5 5 [facility] E [facility] 5 5 [facility] OTHER E OFFICE 00579 [facility] 5 5 Y T VISIT 5 [facility] UNIVERS[facility] - 5 5 Y [facility] UN[facility] - 5 5 Y [facility] OFFICE [facility] 5 Y T [facility]IS[facility] 5 [facility] - 5 5 Y [facility] OFFICE 28857 [facility] 5 5 Y T VISIT [address] UNIVERSIT - 5 5 Y [facility] T OFFICE 12071 [facility] 5 5 NURSE LATONIA T VISIT PRACTITIO 25 NER GR MINUTES
--- OUTSIDE RECORDS SUMMARY | 2017-09-07 22:38 | External Medical Summary Rpt | CCD ---
Demographics Preferred Language Yoruba Marital Status Unknown Latter Day Affiliation Unknown Race Unknown Ethnic Group Unknown Author Author , MIHAI HOLM Address Unknown Phone Immunization No patient found.
--- OUTSIDE RECORDS SUMMARY | 2017-09-07 22:38 | External Medical Summary Rpt | CCD ---
Demographics Preferred Language Spanish Marital Status Unknown Rastafarian Affiliation Unknown Race Unknown Ethnic Group Unknown Author Author , MIHAI HOLM Address Unknown Phone Immunization No patient found.
== END ==
LOC: ER 21:07
PROC: 0CQ0XZZ Repair Upper Lip, External Approach (ICD-10-PCS; principal; 2017-09-06)
DX: S01.511A Laceration without foreign body of lip, initial encounter (principal); W01.0XXA Fall on same level from slipping, tripping and stumbling without subsequent striking against object, initial encounter; Z91.81 History of falling; Y92.129 Unspecified place in nursing home as the place of occurrence of the external cause; G10 Huntington's disease; K21.9 Gastro-esophageal reflux disease without esophagitis; Z88.6 Allergy status to analgesic agent

== ENCOUNTER → 2017-09-13 | Outpatient (CLI) | payer OTHER, MEDICARE, MEDICAID ==
[2017-09-13 17:11] LABS: URINE BILIRUBIN - DIPSTICK NEGATIVE (NEG); URINE BLOOD NEGATIVE (NEG)
== END ==
LOC: LAB 17:04
PROVIDERS: Emergency Medicine
DX: R35.0 Frequency of micturition (principal)

== ENCOUNTER 2017-09-16 14:14 | Emergency (ER) | payer OTHER, MEDICARE, MEDICAID ==
[~2017-09-16] VITALS: Ht 167.6 cm; Wt 49.9 kg
--- NOTE | 2017-09-16 14:24 | Emergency Room Report ---
History of Present Illness Time Seen by MD Chappell Presenting Problem in Triage Pt arrived:Ambulance Stretcher Presenting Problem:PT FELL EARLIER THIS MORNING AND HIT HER HEAD. 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 N Clinical Suspician of Infection? N Mental Status: 1 - Regular (Normal Baseline) Sepsis Risk:Low Sepsis Risk Have you (or family members/close friends) recently traveled outside the [place]? N If Yes, where/when: Have you had exposure to infectious disease within the past month? N TB? Other? Specify: Laceration to head during transfer to shower, neg LOC, has small laceration/ divet to posterior scalp. 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 Has HD. No acute changes. Not anticoagulated. ALLERGIES Coded Allergies: codeine (I-RASH 05/07/16) Home Medications Active Scripts Clindamycin Hcl (Cleocin 300MG Capsule) 300 MG PO TID #30 CAP Prov: 05/11/16 SULFAMETHOXAZOLE W/TRIMETHOPRI (Bactrim Ds Tab) 1 TAB PO BID #20 TAB Prov: 05/11/16 Risperidone (Risperdal) 1 MG PO BID #60 TAB Ref 1 Prov: 05/11/16 Reported Medications MAG CARB/AL HYDROX/ALGINIC AC (Acid Gone Antacid Liquid) 30 ML PO Q4HP PRN INDIGESTION Diphenhydramine Hcl (Benadryl 25MG CAP) 25 MG PO Q4HP Polyethylene Glycol 3350 (Miralax) 17 GM PO DAILYP TRAMADOL HCL (Tramadol) 50 MG PO Q6HP PRN PAIN AMANTADINE HCL (Amantadine) 200 MG PO DAILY CITALOPRAM HYDROBROMIDE (Citalopram HBr) 40 MG PO DAILY SENNOSIDES/DOCUSATE SODIUM (Senna-Docusate Sodium Tablet) 1 TAB PO BID Loratadine (Claritin 10MG) 10 MG PO DAILY MULTIVITAMIN (One Daily Multivitamin) 1 TAB PO DAILY Omeprazole (Prilosec 40mg Cap) 40 MG PO BID Ranitidine Hcl (Zantac) 150 MG PO BID Tetrabenazine (Xenazine) 25 MG PO TID Loperamide Hcl (Loperamide) 2 MG PO Q6HP PRN UNKNOWN Promethazine Hydrochloride (Phenergan 25MG Tab) 25 MG PO Q4HP PRN NAUSEA Medroxyprogesterone Acetate (Depo-Provera) 150 MG IM Q3 MONTHS ONDANSETRON HCL (Ondansetron) 8 MG PO TID History Medical History General CAD? No Angina: No [place]: No Hypertension? No Hyperlipidemia? No CHF? No DVT? No PE? No COPD? No Asthma? No Anemia? No GERD? Yes Gastric ulcers? No GI Bleed? No Hernia? No Thyroid Problems? No Hypothyroidism? No CVA? No Seizures? No Diabetes? No Renal Insuffiency? No End Stage Renal Disease? No UTI? No Stones? No BPH? No GB Disease: No Nephritic Syndrome? No Asplenia? No Hepatitis? No Sickle Cell Disease? No Arthritis? No Migraines? No Cataracts? No Glaucoma? No MRSA? No HIV? No TB? No Anxiety? No Depression? No Cancer? Yes More? 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 Hx LMP N/A Family History Family Hx Diabetes No CAD No Hypertension No Hyperlipidemia No Cancer No TB No Social History Smoking Hx Smoker: Never Smoker Tobacco: No Alcohol Alcohol: No Review of Systems All Other Systems Reviewed and Negative Skin see HPI Psychiatric/Neurological pre-existing deficit Physical Exam Vital Signs Vital Signs Date Time Temp Pulse Resp B/P Pulse O2 O2 Flow FiO2 Ox Delivery Rate 09/16 1416 98.2 84 16 124/76 98 General Appearance normal appearance, WD/WN (choreiform movements nonverbal), alert Eye Exam - bilateral eye normal exam, bilateral eye PERRL Ear, Nose, Throat 0.5 cm divet to posterior scalp with no ecchymosis, edema, or stepoffs; ENT exam atraumatic Neck normal inspection, non-tender, supple, full range of motion Respiratory Status Yes: trachea midline, chest symmetrical, non tender chest. No: respiratory distress, tender on palpation, use of accessory muscles, pain on inspiration, pain on expiration. Lung Sounds bilateral: normal breath sounds, lungs clear. Cardiovascular normal exam, regular rate/rhythm, no peripheral edema, no gallop, no JVD, no murmur, no rub Back normal inspection, no vertebral tenderness Extremities non-tender (atraumatic) Neurologic alert (choreiform movements, alert), alert, nontoxic, aware of surrounds, choreiform movements noted, and patient grunts in response to questions but quite alert. , has HD so speech not intelligible but is quite alert and does not seem disoriented, hence the GCS determined as 4/6/5. Glascow Coma Scale Glascow Coma Scale Response Value EYE response: 4 Spontaneously 4 MOTOR response: 6 OBEYS 6 VERBAL response: 5 Oriented & Converses 5 Total 15 Skin intact (lac, see above) Medical Decision Making LABS/Meds/Orders Pt receiving controlled substance in ED? No Procedures Laceration/Wound Repair Laceration/Wound Repair Risks/benefits discussed with pt/guardian? Yes Tetanus status up to date Wound Location head Wound Length (cm) 0.5 Wound's Depth, Shape sucutaneous tissue, irregular Wound Explored clean Wound Prep Hibiclens Anesthesia na Wound Debrided none Wound Repaired With brenda Suture Size/Type Other Layer Closure No Total Number Sutures 5 Sterile Dressing Applied No (NA) Departure Departure Time of Disposition 1423 Disposition DC Home or Self Care(routine) Clinical Impression Primary Impression: Scalp laceration Qualifiers: Encounter type: initial encounter Qualified Code: S01.01XA - Laceration without foreign body of scalp, initial encounter Condition STABLE Referrals Pippa GRAY,Gwyn Nguyễn (PCP) Patient Instructions Laceration Repair Additional Instructions Sutures out by RN or PCP, one week Discharge Counseling Counseled pt/family regarding diagnosis, home care, follow up needs ED Critical Care Critical Care No at 1423
[2017-09-16 14:26] VITALS: BP 118/75
--- OUTSIDE RECORDS SUMMARY | 2017-09-16 14:51 | External Medical Summary Rpt | Continuity of Care Document ---
Author Author Organization Address Unknown Phone Unavailable Care Team Providers Care Production Checker Name Role Phone , Unavailable Unavailable EMS Current Medications Section EMS Allergies and Adverse Reactions EMS Past Medical History Medications Administered Section EMS Procedures Performed EMS Vital Signs EMS Patient Care Report Narrative D- EC 1 dispatched to [facility] for a 47 year old female who had fallen and split her lip, busted her nose, and was experiencing left arm pain. EC 1 responded Emergent. C- AOS to find the pt sitting in the dining area. Pt had visible blood coming from her upper lip. Pt was alert and oriented. Pt was unable to speak, other than unrecognizable sounds due to her Huntingtons Disease. Pt was assessed for head, neck, and back pain, with non found. Pt 's only compliant was pain in her upper lip, which was indicated by nodding when asked if she was experiencing pain in her lip. Pt was unable to rate pain on a 0-10 scale. H- Pt has a history of Huntingtons Disease and anxiety. Pt has uncontrollable tremors due to the Huntingtons and is unable to for words when speaking. Pt is allergic to Codeine. A- Pt is given a head to toe ALS assessment by Qi Tyler, Wardrobe Specialty Worker. No other injuries were found other than the pt's upper lip having a laceration. It was attempted to place the pt on a back board, but she was unable to tolerate it. R- Pt was placed in the stretcher in a position of comfort. Pt was secured to the stretcher with donna and rails. Pt was taken to the ambulance via stretcher. Pt vitals were taken and monitored en route. T - Pt had no change en route to the hospital. Pt was taken into the ER via stretcher. Pt was placed in bed via sliding herself over. Pt care was given to Sobeida Peters RN. M- Pt required ambulance transport due to injury caused in an emergency situation. Pt's had a laceration to the upper lip.
--- OUTSIDE RECORDS SUMMARY | 2017-09-16 14:51 | External Medical Summary Rpt | Continuity of Care Document ---
Author Author Organization Address Unknown Phone Unavailable Care Team Providers Care Chemical Plant Operator Supervisor Name Role Phone , Unavailable Unavailable EMS Current Medications Section EMS Allergies and Adverse Reactions EMS Past Medical History Medications Administered Section EMS Procedures Performed EMS Vital Signs EMS Patient Care Report Narrative D- EC 1 dispatched to [facility] for a 47 year [...] to toe ALS assessment by Qi Tyler, Circular Ripsaw Operator. No other injuries were found other than [...] herself over. Pt care was given to Soebida Peters RN. M- Pt required ambulance transport due to injury caused in an emergency situation. Pt's had a laceration to the upper lip.
--- OUTSIDE RECORDS SUMMARY | 2017-09-16 14:56 | External Medical Summary Rpt | CCD ---
Author Author , MIHAI Organization MIHAI Address Unknown Phone [email or web address] Care Team Providers Care Library Consultant Name Role Phone RAKESH RAKESH SHI CHA Unavailable Unavailable [facility], [facility] Unavailable Unavailable [facility] Unavailable Unavailable ASSOCIATES, [facility] ARNOLD, ARNOLD Unavailable Unavailable ARNOLD TRINA, ARNOLD Unavailable Unavailable TRINA BEINEKE JUNE, BEINEKE Unavailable Unavailable JUNE BESSON TERESA, BESSON Unavailable Unavailable TERESA MILLARD ALL, MILLARD ALL Unavailable Unavailable JUDY MAC, JUDY Unavailable Unavailable MAC NEWBY KEESHA, NEWBY Unavailable Unavailable KEESHA [facility] Unavailable Unavailable SERVICE, [facility] Unavailable Unavailable SERVICE, [facility]EST[facility] OF Unavailable Unavailable [facility] MANISH CHELA, Unavailable Unavailable MANISH CHELA [facility], Unavailable Unavailable [facility] Unavailable Unavailable TRANSPORTATION SER, [facility] GUILIANI LATONIA, Unavailable Unavailable GUILIANI LATONIA [facility] Unavailable Unavailable INC, [facility] Unavailable Unavailable H[facility]PITAL P, [facility], [facility]available Unavailable [facility] Unavailable Unavailable IMAGING ASS, [facility] Un[facility], [facility] Un[facility] Unavailable [facility] Unavailable Unavailable [...] OF [place] [facility], Unavailable Unavailable [facility] ANGEL CASTRO, ANGEL Unavailable Unavailable DREW CASTRO WALKER FOR, WALKER Unavailable Unavailable FOR Purpose Continuity of Care Document - 02-25-2015 through 2016 Problems Code Diagnosis DOS Provider Status G10 [place] 07-26-2017 [facility] J309 ALLERGIC 07-26-2017 [facility] UNSPECIFIED [id number] OTHER LONG 07-10-2017 [facility] CURRENT DRUG THERAPY S38750 PAIN IN 06-11-2017 [facility] RIGHT ELBOW LLC B351 TINEA 05-27-2017 [facility]AT[facility] OF [facility] K50099 PAIN IN 05-27-2017 SPECIAL RIGHT TOES CARE PODIATRY OF [facility] [id number] PAIN IN 05-27-2017 SPECIAL LEFT TOES CARE PODIATRY OF [facility] M6281 MUSCLE 02-25-2017 [facility] R4182 ALTERED 09-26-2016 [facility]US [facility] UNSPECIFIED E870 HYPEROSMOLA 05-16-2016 [facility] HY[place] ASSOCIATES [place] R88313 PAIN IN 05-15-2016 [facility] LEFT KNEE LLC R918 OTHER 05-08-2016 [facility] NONSPECIFIC [facility] ABNORMAL [facility]AGING ASS FINDING OF LUNG FIELD E46 UNSPECIFIED 05-07-2016 [facility] P ORIE MALNUTRITIO N J189 PNEUMONIA 05-07-2016 [facility] P R0989 OTH SPEC SX 05-07-2016 [facility] & SIGNS [facility]ICAL INVLV THE IMAGING ASS CIRC & RESP SYS R509 FEVER 05-07-2016 [facility] UNSPECIFIED [facility]YSICIANS, PLLC R58 HEMORRHAGE 05-07-2016 [facility] NOT [facility]BULANCE ELSEWHERE SERVICE CLASSIFIED R64 CACHEXIA 05-07-2016 [facility] Z681 BODY MASS 05-07-2016 [facility] INDEX 19.9 [facility] OR LESS INC ADULT R69 ILLNESS 04-12-2016 [facility] UNSPECIFIED TRANSPORTAT ION SER Z9689 PRESENCE OF 04-12-2016 [facility] OTHER [facility] SPECIFIED [facility] FUNCTIONAL IMPLANTS K219 GASTRO-ESOP 03-22-2016 [facility] DISEASE WITHOUT ESOPHAGITIS R1310 DYSPHAGIA 03-22-2016 [facility] Z4542 ENCOUNTER 03-22-2016 [place] [facility] MANAGEMENT NEUROPACEMA KER J690 PNEUMONITIS 02-03-2016 [facility] DUE TO LLC INHALATION OF FOOD AND VOMIT H5213 MYOPIA 01-30-2016 [facility]IL[facility]AL [facility] PLL H524 PRESBYOPIA 01-30-2016 [facility] Z4549 ENCOUNTER 01-19-2016 [facility] MGMT OTH IMPLANTED NS DEVICE Z9889 OTHER 01-19-2016 [facility] POSTPROCEDU RAL STATES R262 DIFFICULTY 10-13-2015 [facility] NOT ELSEWHERE CLASSIFIED R51 HEADACHE 10-12-2015 [facility] [id number] CONTUSION 10-12-2015 [facility] OTHER PART [facility] OF HEAD INC INITIAL ENCOUNTER [id number] UNSPECIFIED 10-12-2015 [facility] INITIAL SERVICE ENCOUNTER R8290 UNSPECIFIED 09-30-2015 [facility] FINDINGS IN ASSOCIATES URINE 64961 ABDOMINAL 08-16-2015 COMMUNITY PAIN, ANESTH OF UNSPECIFIED THE BLUE SITE 74326 ABDOMINAL 08-16-2015 [facility] PAIN, [facility] EP[facility]IC [facility] 20662 UNSPECIFIED 08-12-2015 [facility] N 5920 CALCULUS OF 08-12-2015 [facility] 72661 NAUSEA 08-12-2015 [facility]ONE [facility] 60047 ABDOMINAL 08-12-2015 [facility] PAIN, [facility] PERIUMBILIC INC 74315 ABDOMINAL 08-12-2015 [facility] OTHER MEDICAL SPECIFIED IMAGING ASS SITE 20754 ABDOMINAL 08-11-2015 [facility] PAIN, [facility] GENERALIZED INC 75614 08-11-2015 [facility] TRANSPORTAT ION SER 12862 SHORTNESS 08-01-2015 [facility] OF BREATH LLC 3334 [place] 07-26-2015 [facility] V762 SCREENING 07-08-2015 [facility] MALIGNANT NEOPLASM OF THE CERVIX 9962 [facility] COMP 03-30-2015 [place] [facility] DEVICE IMPLANT&GRA FT V5302 NEUROPACEMA 03-30-2015 [facility] 4779 ALLERGIC 03-22-2015 [facility] CAUSE UNSPECIFIED 25461 ESOPHAGEAL 03-22-2015 [facility] 69998 ATROPHIC 03-22-2015 [facility] GASTRITIS [facility] WITHOUT MENTION OF HEMORRHAGE 61464 OTHER SPEC 03-22-2015 [facility] WITHOUT MENTION HEMORRHAGE 65086 LOSS OF 03-22-2015 [facility] 78416 DIARRHEA 03-22-2015 [facility] V4589 OTHER 03-10-2015 [facility] STATUS OTHER V719 OBSERVATION 03-10-2015 [place] [facility] FOR SERV UNSPECIFIED [facility] SUSPECTED CONDITION 10526 DYSPHAGIA 03-09-2015 [facility] UNSPECIFIED [facility]AGING ASS Medications Na ND Rx Da Fi Fi Am Da Di Ph RX Ph St me C No te ll ll ou ys ag ar # ys at rm s nt no ma ic us Or Da si cy ia de te s n re d ST 00 11 10 0 30 30 ME 15 GA Ac OO 53 -0 -2 0. D 15 IN ti L 61 2- 0- 00 CA 10 EY ve SO 06 20 20 0 RE 18 FT 41 16 17 RI EN 0 PH CH ER AR AE MA L 25 CY S 0 MG LL C SO FT GE L SE 00 03 10 0 60 30 ME 15 GA Ac NE 53 -1 -2 0. D 16 IN ti XO 64 9- 0- 00 CA 20 EY ve N- 08 20 20 0 RE 13 S 60 17 17 RI TA 1 PH CH BL AR AE ET MA L CY S LL C LO 00 06 10 0 30 30 ME 15 GA Ac RA 78 -1 -1 0. D 12 IN ti TA 15 7- 7- 00 CA 61 EY ve DI 07 20 20 0 RE 03 NE 70 17 17 RI 1 PH CH 10 AR AE MA L MG CY S TA LL BL C ET TA 00 03 10 0 30 30 ME 15 GA Ac B- 90 -1 -1 0. D 12 IN ti A- 40 9- 6- 00 CA 27 EY ve 53 20 20 0 RE 04 TE 08 17 17 RI 0 PH CH TA AR AE BL MA L ET CY S LL C RE 53 07 10 0 11 10 ME 15 GA Ac ME 32 -2 -0 30 D 08 IN ti DY 90 5- 7- .0 CA 90 EY ve 16 20 20 00 RE 50 CA 54 17 17 RI LA 4 PH CH ZI AR AE ME MA L CY S MT OT LL EC C T PA ST E ME 00 04 09 0 30 30 ME 14 GA Ac LA 90 -0 -2 0. D 99 IN ti TO 45 2- 3- 00 CA 65 EY ve NI 18 20 20 0 RE 64 N 25 17 17 RI 3 2 PH CH MG AR AE MA L TA CY S BL ET LL C SE 00 03 09 0 60 30 ME 14 GA Ac NE 53 -1 -2 0. D 99 IN ti XO 64 9- 2- 00 CA 01 EY ve N- 08 20 20 0 RE 49 S 60 17 17 RI TA 1 PH CH BL AR AE ET MA L CY S LL C ST 00 11 09 0 30 30 ME 14 GA Ac OO 53 -0 -2 0. D 97 IN ti L 61 2- 0- 00 CA 27 EY ve SO 06 20 20 0 RE 11 FT 41 16 17 RI EN 0 PH CH ER AR AE MA L 25 CY S 0 MG LL C SO FT GE L LO 00 06 09 0 30 30 ME 14 GA Ac RA 78 -1 -1 0. D 98 IN ti TA 15 7- 9- CA 35 EY ve DI 07 20 20 0 RE 58 NE 70 17 17 RI 1 PH CH 10 AR AE MA L MG CY S TA LL BL C ET TA 00 03 09 0 30 30 ME 14 GA Ac B- 90 -1 -1 0. D 97 IN ti A- 40 9 8- CA 40 EY ve 53 20 20 0 RE 84 TE 08 17 17 RI 0 PH CH TA AR AE BL MA L ET CY S LL C LO 00 06 08 0 30 30 ME 14 GA Ac RA 78 -1 -2 0. D 82 IN ti TA 15 7 5- CA 83 EY ve DI 07 20 20 0 RE 92 NE 70 17 17 RI 1 PH CH 10 AR AE MA L MG CY S TA LL BL C ET ME 00 04 08 0 30 30 ME 14 GA Ac LA 90 -0 -2 0. D 82 IN ti TO 45 2- 5- CA 84 EY ve NI 18 20 20 0 RE 00 N 25 17 17 RI 3 2 PH CH MG AR AE MA L TA CY S BL ET LL C SE 00 03 08 0 60 30 ME 14 GA Ac NE 53 -1 -2 0. D 81 IN ti XO 64 9- 3- 00 CA 13 EY ve N- 08 20 20 0 RE 71 S 60 17 17 RI TA 1 PH CH BL AR AE ET MA L CY S LL C TA 00 03 08 0 30 30 ME 14 GA Ac B- 90 -1 -2 0. D 80 IN ti A- 40 9- 1- CA 08 EY ve 53 20 20 0 RE 41 TE 08 17 17 RI 0 PH CH TA AR AE BL MA L ET CY S LL C ST 00 11 07 0 30 30 ME 14 GA Ac OO 53 -0 -3 0. D 68 IN ti L 61 2- 1- 00 CA 05 EY ve SO 06 20 20 0 RE 89 FT 41 16 17 RI EN 0 PH CH ER AR AE MA L 25 CY S 0 MG LL C SO FT GE L ME 00 04 07 0 30 30 ME 14 GA Ac LA 90 -0 -2 0. D 66 IN ti TO 45 2- 8- 00 CA 70 EY ve NI 18 20 20 0 RE 20 N 25 17 17 RI 3 2 PH CH MG AR AE MA L TA CY S BL ET LL C LO 00 06 07 0 30 30 ME 14 GA Ac RA 78 -1 -2 0. D 66 IN ti TA 15 7- 8- 00 CA 70 EY ve DI 07 20 20 0 RE 12 NE 70 17 17 RI 1 PH CH 10 AR AE MA L MG CY S TA LL BL C ET RE 53 07 07 0 11 10 ME 14 GA Ac ME 32 -2 -2 30 D 66 IN ti DY 90 5- 5- .0 CA 34 EY ve 16 20 20 00 RE 44 CA 54 17 17 RI LA 4 PH CH ZI AR AE ME MA L CY S MT OT LL EC C T PA ST E SE 00 03 07 0 60 30 ME 14 GA Ac NE 53 -1 -2 0. D 64 IN ti XO 64 9- 4- 00 CA 20 EY ve N- 08 20 20 0 RE 99 S 60 17 17 RI TA 1 PH CH BL AR AE ET MA L CY S LL C TA 00 03 07 0 30 30 ME 14 GA Ac B- 90 -1 -2 0. D 65 IN ti A- 40 9 4- 00 CA 17 EY ve 53 20 20 0 RE 52 TE 08 17 17 RI 0 PH CH TA AR AE BL MA L ET CY S LL C ST 00 11 07 0 30 30 ME 14 GA Ac OO 53 -0 -0 0. D 50 IN ti L 61 2- 3- 00 CA 60 EY ve SO 06 20 20 0 RE 20 FT 41 16 17 RI EN 0 PH CH ER AR AE MA L 25 CY S 0 MG LL C SO FT GE L LO 00 06 07 0 30 30 ME 14 GA Ac RA 78 -1 -0 0. D 50 IN ti TA 15 7- 1- 00 CA 60 EY ve DI 07 20 20 0 RE 12 NE 70 17 17 RI 1 PH CH 10 AR AE MA L MG CY S TA LL BL C ET ME 00 04 07 0 30 30 ME 14 GA Ac LA 90 -0 -0 0. D 50 IN ti TO 45 2 1- 00 CA 60 EY ve NI 18 20 20 0 RE 31 N 25 17 17 RI 3 2 PH CH MG AR AE MA L TA CY S BL ET LL C SE 00 03 06 0 60 30 ME 14 GA Ac NE 53 -1 -2 0. D 47 IN ti XO 64 9- 6- 00 CA 35 EY ve N- 08 20 20 0 RE 41 S 60 17 17 RI TA 1 PH CH BL AR AE ET MA L CY S LL C TA 00 03 06 0 30 30 ME 14 GA Ac B- 90 -1 -2 0. D 45 IN ti A- 40 9- 6- 00 CA 93 EY ve 53 20 20 0 RE 04 TE 08 17 17 RI 0 PH CH TA AR AE BL MA L ET CY S LL C ST 00 11 06 0 14 14 ME 14 GA Ac OO 53 -0 -2 0. D 42 IN ti L 61 2- 0- 00 CA 50 EY ve SO 06 20 20 0 RE 63 FT 41 16 17 RI EN 0 PH CH ER AR AE MA L 25 CY S 0 MG LL C SO FT GE L ME 00 04 06 0 14 14 ME 14 GA Ac LA 90 -0 -1 0. D 41 IN ti TO 45 2- 9- 00 CA 58 EY ve NI 18 20 20 0 RE 47 N 25 17 17 RI 3 2 PH CH MG AR AE MA L TA CY S BL ET LL C LO 00 06 06 0 14 14 ME 14 GA Ac RA 78 -1 -1 0. D 41 IN ti TA 15 7- 9- 00 CA 58 EY ve DI 07 20 20 0 RE 41 NE 70 17 17 RI 1 PH CH 10 AR AE MA [...] CY W NT ME LL NT C BA 00 05 06 0 28 [...] AR AR ME MA D CY W MT OT LL EC C T PA ST [...] Procedure DOS Code Location Performer Comment ECG 45195 [facility] ROUTINE 7 [facility] ECG W/LEAST 12 LDS TRCG ONLY W/O I&R SET-UP Q0092 [facility] PORTABLE 7 [facility] X-RAY EQUIPMENT RADEX 97417 [facility] ELBOW 2 7 [facility] VIEWS TRANS R0070 [facility] PRTBL 7 [facility] X-RAY EQP&PERS PEDRO/NRS PEDRO-TRIP 1 PT DEBRIDEME 97028 SPECIAL SKRICosmo JR. NT NAIL 7 CARE ANY PODIATRY METHOD OF [place]I 6/> DEBRIDEME 52979 SPECIAL SKRIP JR. NT NAIL 7 CARE ANY PODIATRY METHOD OF [place] 6/> COMPREHEN [address] [facility] [address] [place] [address] HEALTH METABOLIC ASSOCIATE ASSOCIATE PANEL S S [place] V G0471 [address] HEALTH COAT EXAMINER/URN ASSOCIATE ASSOCIATE SMP CATH S S IND SNF/LAB BHALF ICT CUSTOMER SUPPORT OFFICER SBSQ 84593 [facility] 7 FACILITY CARE/DAY E/M STABLE 10 MIN TRAVEL [address] NEC WOOD VENEER TAPER ASSOCIATE SPEC; S S PRORAT ACTL MILE BLOOD 74138 [facility] EC[facility] COUNT [address] [place] [address] COMPLETE ASSOCIATE ASSOCIATE AUTOMATED S S TRAVEL [address] NEC WOOD VENEER TAPER ASSOCIATE SPEC; S S PRORAT ACTL MILE E[place] V G0471 [address] COAT EXAMINER/URN ASSOCIATE ASSOCIATE SMP CATH S S IND SNF/LAB BHALF ICT CUSTOMER SUPPORT OFFICER DRUG [address] VALPROIC ASSOCIATE ASSOCIATE DIPROPYLA S S CETIC ACID TOTAL SBSQ 93026 [facility] 7 FACILITY CARE/DAY E/M STABLE 10 MIN DRUG [address] VALPROIC ASSOCIATE ASSOCIATE DIPROPYLA S S CETIC ACID TOTAL [place]AST[place] V G0471 [address] COAT EXAMINER/URN ASSOCIATE ASSOCIATE SMP CATH S S IND SNF/LAB BHALF ICT CUSTOMER SUPPORT OFFICER TRAVEL [address] NEC WOOD VENEER TAPER ASSOCIATE SPEC; S S PRORAT ACTL MILE ECG 37705 [facility] ROUTINE 7 [facility] ECG W/LEAST 12 LDS TRCG ONLY W/O I&R SBSQ 97739 [facility] 7 FACILITY CARE/DAY E/M STABLE 10 MIN DEBRIDEME 75002 SPECIAL SKRIP JR. NT NAIL 7 CARE ANY PODIATRY METHOD OF MIHAI 6/> E/M 63133 LIZ [facility] 7 NURSING FACILITY ASSESS STABLE 30 MIN SBSQ 68761 [facility] NURSING 6 TRINA TRINA FACILITY CARE/DAY E/M STABLE 10 MIN SBSQ 25084 [facility] NURSING 6 TRINA TRINA FACILITY CARE/DAY E/M STABLE 10 MIN CULTURE [address] HEALTH ASSOCIATE ASSOCIATE QUANTTATI S S VE COLONY COUNT URINE URNLS DIP [address] STICK/TAB ASSOCIATE ASSOCIATE LET S S REAGENT AUTO MICROSCOP Y DEBRIDEME 96537 SPECIAL SKRIP JR. NT NAIL 6 CARE TRINA ANY PODIATRY METHOD OF [place]HAI /> SBSQ [address] 6 TRINA TRINA FACILITY CARE/DAY E/M STABLE 10 MIN EASTON V G0471 [facility] ECU[facility] BLD 6 HEALTH HEALTH COAT EXAMINER/URN ASSOCIATE ASSOCIATE SMP CATH S S IND SNF/LAB BHALF ICT CUSTOMER SUPPORT OFFICER COMPREHEN 46594 [facility] METABOLIC ASSOCIATE ASSOCIATE PANEL S S TRAVEL 1 P9603 [place] [address] HEALTH HEALTH NEC WOOD VENEER TAPER ASSOCIATE SPEC; S S PRORAT ACTL MILE SBSQ 60423 [facility] 6 TRINA TRINA FACILITY CARE/DAY E/M STABLE 10 MIN SBSQ 81901 ARNR[facility] 6 TRINA TRINA FACILITY CARE/DAY E/M STABLE 10 MIN ECG 15805 [facility] ROUTINE 6 LLC LLC ECG W/LEAST 12 LDS TRCG ONLY W/O I&R DEBRIDEME 94882 SPECIAL SKRIP JR. NT NAIL 6 CARE TRINA ANY PODIATRY METHOD OF [place]I 6/> SBSQ 15799 [facility] 6 TRINA TRINA FACILITY CARE/DAY E/M STABLE 10 MIN [facility]ASTON V G0471 [facility] HEALTH HEALTH COAT EXAMINER/URN ASSOCIATE ASSOCIATE SMP CATH S S IND SNF/LAB BHALF ICT CUSTOMER SUPPORT OFFICER TRAVEL 1 P9603 [place] [address] HEALTH HEALTH NEC WOOD VENEER TAPER ASSOCIATE SPEC; S S PRORAT ACTL MILE BASIC 02432 [facility] METABOLIC HEALTH HEALTH PANEL ASSOCIATE ASSOCIATE CALCIUM S S TOTAL RADIOLOGI 83282 [facility] C 6 LLC LLC EXAMINATI ON KNEE 1/2 VIEWS SET-UP Q0092 [facility] PORTABLE 6 LLC LLC X-RAY EQUIPMENT TRANS R0070 [facility] PRTBL 6 LLC LLC X-RAY EQP&PERS PEDRO/NRS PEDRO-TRIP 1 PT INITIAL 83361 [facility] 6 TRINA TRINA FACILITY CARE/DAY 25 MINUTES RADIOLOGI 02671 [facility] EXAM 6 MEDICAL CHELA CHEST 2 IMAGING VIEWS ASS FRONTAL&L ATERAL GROUND A0425 [facility]ANCE AMBULANCE PER SERVICE SERVICE STATUTE MILE RADIOLOGI 97614 [facility] ALL C 6 MEDICAL EXAMINATI IMAGING ON CHEST ASS SINGLE VIEW FRONTAL ECG 86701 [facility] KUMAR ROUTINE 6 [facility] W/LEAST P 12 LDS I&R ONLY AMB A0427 [facility] 6 AMBULANCE AMBULANCE ALS SERVICE SERVICE EMERGENCY TRANSPORT LEVEL 1 SBSQ 05176 ARNRADHA [facility] 6 TRINA TRINA FACILITY CARE/DAY E/M STABLE 10 MIN NONEMERGE A0130 [facility] FEDERATED NCY 6 TRANSPORT TRANSPORT TRANSPORT ATION: ATION SER ATION SER [facility] [place] ELEC ZULEIMA 32568 [facility] 6 Y Y PLS [facility] CPLX DP BRN 1ST HOSPITAL G0463 [facility] 6 Y Y T [facility] HOSPITAL VISIT ASSESS & MGMT PT SBSQ 85324 [facility] NURSING 6 TRINA TRINA FACILITY CARE/DAY E/M STABLE 10 MIN ELEC ZULEIMA 87259 GISELA VILLATIM 6 MEDICAL IT RISK AND ASSURANCE SENIOR MANAGER PLS GEN SERV CPLX DP FOUNDATIO BRN 1ST [facility] G0463 [facility] 6 Y Y T [facility] HOSPITAL VISIT ASSESS & MGMT PT DEBRIDEME 86492 SPECIAL GRETCHEN ROUSE. NT NAIL 6 CARE TRINA ANY PODIATRY METHOD OF [place]HAI 6/> SWALLOWIN 93875 [facility] DAVION G FUNCJ 6 MEDICAL JUNE W/CINERAD IMAGING IOGRAPY/V ASS IDRADIOG MOTION 22378 [facility] CAMEJO FLUOR 6 [facility] EVAL INC INC SWLNG FUNCJ C/V REC SBSQ 31485 [facility] TRINA TRINA FACILITY CARE/DAY E/M STABLE 10 MIN ELEC ZULEIMA 41016 GISELA SILVA NSTIM 6 MEDICAL IT RISK AND ASSURANCE SENIOR MANAGER PLS GEN SERV SMPL FOUNDATIO SC/PERPH N W/PRGRMG NONEMERGE A0130 FEDERATED FEDERATED NCY 6 TRANSPORT TRANSPORT TRANSPORT ATION: ATION SER ATION SER [facility] G0463 [facility] 6 Y Y T [facility] VISIT ASSESS & MGMT PT RADIOLOGI 88174 [facility] C 6 LLC LLC EXAMINATI ON CHEST SINGLE VIEW FRONTAL TRANS R0070 [facility] PRTBL 6 LLC LLC X-RAY EQP&PERS PEDRO/NRS PEDRO-TRIP 1 PT SET-UP Q0092 [facility] PORTABLE 6 LLC LLC X-RAY EQUIPMENT DETERMINA 21227 AEC JOSE ALBERTO TION 6 CONTRACT TAVO [facility]IV [facility] OPH[facility] 99556 [facility] 6 CONTRACT TAVO XM&EVAL [facility] COMPRE [facility] NEW PT / VST SBSQ 44775 [facility] 6 [facility] FACILITY CARE/DAY E/M STABLE 10 MIN ELEC ZULEIMA 36564 GISELA ANGEL DREW [facility] 6 MEDICAL IT RISK AND ASSURANCE SENIOR MANAGER PLS GEN SERV SMPL FOUNDATIO SC/PERPH N W/PRGRMG HOSPITAL G0463 [facility] 6 Y Y T [facility] HOSPITAL VISIT ASSESS & MGMT PT HOSPITAL G0463 [facility] 6 Y Y T [facility] HOSPITAL VISIT ASSESS & MGMT PT ELEC ZULEIMA 89913 GISELA ANGEL RUSSELL [facility] 6 MEDICAL IT RISK AND ASSURANCE SENIOR MANAGER PLS GEN SERV SMPL FOUNDATIO SC/PERPH N W/PRGRMG NONEMERGE A0130 FEDERATED FEDERATED NCY 6 TRANSPORT TRANSPORT TRANSPORT ATION: ATION SER ATION SER DANIELLA ORTIZ SBSQ 23721 [facility] 6 [facility] FACILITY CARE/DAY E/M STABLE 10 MIN ELEC ZULEIMA 90823 [facility] 6 Y Y PLS [facility] CPLX DP BRN 1ST HR DEBRIDEME 74846 SPECIAL SKRIP JR. NT NAIL 6 CARE TRINA ANY PODIATRY METHOD OF [place]I 6/> ECG 53672 [facility] ROUTINE 6 LLC LLC ECG W/LEAST 12 LDS TRCG ONLY W/O I&R E/M 92742 [facility] 6 [facility] NURSING FACILITY ASSESS STABLE 30 MIN SBSQ 89121 [facility] 5 [facility] FACILITY CARE/DAY E/M STABLE 10 MIN NONEMERGE A0130 FEDERATED FEDERATED NCY 5 TRANSPORT TRANSPORT TRANSPORT ATION: ATION SER ATION SER DANIELLA ORTIZ ELEC UZLEIMA 62252 [facility] 5 Y Y PLS [facility] CPLX DP BRN 1ST HR HOSPITAL G0463 [facility] 5 Y Y T [facility]PITAL VISIT ASSESS & MGMT PT THER 59809 [facility] PROPH/DX 5 [facility] NJX IV INC INC PUSH SINGLE/1S T SBST/DRUG THERAPEUT 63195 [facility] C[facility] IC 5 [facility] INJECTION [place] [address] [facility] CAMEJO HEAD/BRAI 5 [facility] N W/O INC INC CONTRAST MATERIAL AMB A0427 [facility] 5 AMBULANCE AMBULANCE ALS SERVICE SERVICE EMERGENCY TRANSPORT LEVEL 1 URNLS DIP 46995 [facility] CAMEJO 5 [facility] STICK/TAB INC INC LET REAGENT AUTO MICROSCOP Y BLOOD 67383 [facility] CAMEJO COUNT 5 [facility] COMPLETE INC INC AUTO&AUTO DIFRNTL WBC INJECTION J2405 [facility] CAMEJO 5 [facility] ONDANSETR INC INC ON HCL PER 1 MG COMPREHEN 89753 [facility] SIVE 5 [facility] METABOLIC INC INC PANEL GROUND A0425 [facility]LEAGE 5 AMBULANCE AMBULANCE PER SERVICE SERVICE STATUTE MILE URNLS DIP 83545 [facility] 5 HEALTH HEALTH STICK/TAB ASSOCIATE ASSOCIATE LET S S REAGENT AUTO MICROSCOP Y CULTURE 48013 [facility] EC[facility] BACTERIAL 5 HEALTH HEALTH ASSOCIATE ASSOCIATE QUANTTATI S S VE COLONY COUNT URINE HOSPITAL G0463 [facility] 5 Y Y T [facility] HOSPITAL VISIT ASSESS & MGMT PT HOSPITAL G0463 [facility] 5 [facility] VISIT ASSESS & MGMT PT NONEMERGE A0130 FEDERATED FEDERATED NCY 5 TRANSPORT TRANSPORT TRANSPORT ATION: ATION SER ATION SER DANIELLA ORTIZ ELEC ZULEIMA 15718 BOB KIM NSTIM 5 Y [facility] CPLX DP BRN 1ST HR SBSQ 75021 [facility] 5 [facility] FACILITY CARE/DAY E/M STABLE 10 MIN SBSQ 95614 ARNRADHA [facility] 5 [facility] FACILITY CARE/DAY E/M STABLE 10 MIN ESOPHAGOG 15546 [facility] ESTERSTDEVONTE ASTRODUOD 5 PHYSICIAN CAM [place]OSCOPY [place] [address] [facility] INFUSION 5 [facility] THERAPY/P INC INC ROPHYLAXI S /DX 1ST TO 1 HR ANES 54895 [facility] UPPER GI 5 ANESTH SHE ENDOSCOPY OF THE PROXIMAL BLUE TO DUODENUM GONADOTRO 88906 [facility] PIN 5 [facility] [place] [address] [facility] INFUSION 5 [facility] THERAPY INC INC PROPHYLAX IS/DX EA HOUR LOCM Q9967 BASH[facility] CAMEJO [phone] [facility] MG/ML INC [place] [address] [facility] ABDOMEN & 5 MEDICAL PELVIS IMAGING W/CONTRAS ASS T MATERIAL BLOOD 56084 [facility] COUNT 5 [facility] COMPLETE INC INC AUTO&AUTO DIFRNTL WBC BASIC 32955 [facility] METABOLIC 5 [facility] PANEL INC INC CALCIUM TOTAL HEPATIC 74174 BASH[facility] C[facility] FUNCTION 5 [facility] PANEL INC INC NONEMERG A0120 FEDERATED FEDERATED TRNSPRT: 5 MINI-BUS TRANSPORT TRANSPORT MTN ATION SER ATION SER AREA/OTH SYS COLLECTIO 46998 BASH[facility] N VENOUS 5 [facility] BLOOD INC INC VENIPUNCT URE RADIOLOGI 57874 [facility] C EXAM 5 [facility] CHEST 2 VIEWS FRONTAL&L ATERAL TRANS R0070 [facility] PRTBL 5 [facility] X-RAY EQP&PERS PEDRO/NRS PEDRO-TRIP 1 PT SET-UP Q0092 [facility] X-RAY EQUIPMENT SBSQ 35228 [facility] F[facility] CARE/DAY E/M STABLE 10 MIN SCR G0145 [facility] CERV/VAG SCR AUTO&MNL RSCR PHYS RINGERS J7120 [facility] LACTATE 5 Y Y INFUSION [facility] UP TO 1000 CC INSJ/RPLC 78802 [place] ANGEL RUSSELL MT 5 MEDICAL IT RISK AND ASSURANCE SENIOR MANAGER CRANIAL SERV NEUROSTIM FOUNDATIO GENER N 2/> ELTRDS GENERATOR C1767 [facility] 5 Y Y NEUROSTIM [facility] ULATOR NONRECHAR GEABLE URINE 78694 [facility] 5 Y Y TEST [facility] VISUAL COLOR CMPRSN METHS ANES 59805 [place] CAMERON YURIDIA INTEG 5 MEDICAL EXTREMITI SERVICES ES ANT TRUNK & PERINEUM NOS BASIC 75961 [facility] METABOLIC 5 Y Y PANEL [facility] CALCIUM TOTAL THROMBOPL 39807 [facility] ASTIN 5 Y Y TIME HOSPITAL HOSPITAL PARTIAL PLASMA/WH OLE BLOOD BLOOD 56795 SURGERY [facility] COUNT 5 Y Y COMPLETE [facility] AUTOMATED URNLS DIP 29472 SUR[facility]ERY [facility] 5 Y Y STICK/TAB [facility] LET REAGENT AUTO MICROSCOP Y ECG [id number] [facility] ROUTINE 5 Y Y ECG [facility] W/LEAST 12 LDS TRCG ONLY W/O I&R RADIOLOGI [id number] [place] C EXAM 5 MEDICAL KEESHA CHEST 2 SERV VIEWS [facility] FRONTAL&L N ATERAL PROTHROMB 06009 [facility] IN TIME 5 Y Y [facility]PITAL COLLECTIO 33723 [facility] N VENOUS 5 Y Y BLOOD [facility] VENIPUNCT URE SWALLOWIN 10975 YOSVANY Alvarez FUNCJ 5 MEDICAL CHELA W/CINERAD IMAGING IOGRAPY/V ASS IDRADIOG Encounters Encounter Start End Date Code Location Performer Type Date [facility] INPATIENT 7 7 [facility] 7 7 [facility] 7 7 [facility] 7 [facility] 7 7 [facility] 7 [facility] 7 7 [facility] 6 6 HEALTHCAR E EMERGENCY [id number] RAJIV LEE DEPT 6 6 PHYSICIAN FOR VISIT S, [facility] HIGH SEVERITY& THREAT [facility] BASHIR - 6 6 [facility] INPATIENT INC [facility] 6 6 [facility] UNIVERSIT - 6 6 Y [facility] T OFFICE 89881 GISELA SILVA [facility] 6 6 MEDICAL IT RISK AND ASSURANCE SENIOR MANAGER T VISIT SERV 15 FOUNDATIO MINUTES N [facility] 6 6 [facility] UNIVERSIT - 6 6 Y [facility] T OFFICE 34140 GISELA SILVA [facility] 6 6 MEDICAL IT RISK AND ASSURANCE [facility]ENIOR MANAGER T VISIT SERV 15 FOUNDATIO MINUTES HOSPITAL BASHIR - 6 6 [facility] 6 [facility] UNIVERSIT - 6 6 Y [facility] T OFFICE 33156 GISELA SILVA [facility] 6 6 MEDICAL IT RISK AND ASSURANCE SENIOR MANAGER T VISIT SERV 15 FOUNDATIO MINUTES N [facility] 6 6 [facility] 27015 [facility] Y T [facility] 5 [facility] 6 6 Y [facility] T SPECIAL [facility] 6 6 [facility] E [facility] 6 6 [facility] E [facility] 5 5 [facility] UNIVERSIT [facility] 5 5 Y [facility] B[facility] - 5 5 [facility] OUTPATIEN INC T EMERGENCY [id number] [facility] 5 5 [facility] DEPARTMEN INC T VISIT HIGH/URGE NT [facility] UN[facility] - 5 5 Y [facility] 5 5 [facility] OTHER E [facility] 5 5 [facility] E HOSPITAL BASHIR - 5 5 [facility] OUTPATIEN INC T [facility]OSPITAL BASHIR [facility] 5 5 [facility] OUT[facility]IEN [facility] T [facility] BASHIR - 5 5 [facility] OUTPATIEN INC T OFFICE 02336 [facility]DEV[facility]TE [facility] 5 5 PHYSICIAN CAM T NEW 30 S GROUP MINUTES [facility] 5 5 [facility] OTHER E [facility] 5 5 [facility] OTHER E OFFICE 83527 UN[facility]IT [facility] 5 5 Y T VISIT 5 [facility] UN[facility] - 5 5 Y [facility] UNIVERSIT - 5 5 Y [facility] T OFFICE 50942 UN[facility] 5 5 Y T VISIT 5 [facility]IVERS[facility] - 5 5 Y [facility] UNIVERSIT - 5 5 Y [facility] T OFFICE 38551 [facility]IT [facility] 5 5 Y T VISIT HOSPITAL 40 MINUT[facility] OFFICE 52134 [facility] 5 5 NURSE [place]ONIA T VISIT PRACTITIO 25 NER GR MINUTES
--- OUTSIDE RECORDS SUMMARY | 2017-09-16 14:56 | External Medical Summary Rpt | CCD ---
Author Author , MIHAI Organization MIHAI Address Unknown Phone [email or web address] Team Providers Care Training And Development Project Leader Name Role Phone RAKESH RAKESH SHI CHA Unavailable Unavailable [facility], [facility] Unavailable Unavailable [facility]OC[facility], [facility] Unavailable Unavailable ASSOCIATES, [facility] ARNOLD, ARNOLD Unavailable Unavailable ARNOLD TRINA, ARNOLD Unavailable Unavailable TRINA BEINEKE JUNE, BEINEKE Unavailable Unavailable JUNE BESSON TERESA, BESSON Unavailable Unavailable TERESA MILLARD ALL, MILLARD ALL Unavailable Unavailable JUDY MAC, JUDY Unavailable Unavailable MAC NEWBY KEESHA, NEWBY Unavailable Unavailable KEESHA [facility] Unavailable Unavailable SERVICE, [facility] Unavailable Unavailable SERVICE, [facility] Unavailable Unavailable [facility], [facility] MANISH CHELA, Unavailable Unavailable MANISH CHELA [facility], Unavailable Unavailable [facility] Unavailable Unavailable TRANSPORTATION SER, [facility] GUILIANI LATONIA, Unavailable Unavailable GUILIANI LATONIA [facility] Unavailable Unavailable INC, [facility] Unavailable Unavailable HOSPITAL P, [facility], Unavailable Unavailable [facility] Unavailable Unavailable [facility], [facility], Un[facility]available [facility] Unavailable Unavailable [...] Unavailable OF [place], Unavailable Unavailable [facility] ANGEL CASTRO, ANGEL Unavailable Unavailable DREW CASTRO WALKER FOR, WALKER Unavailable Unavailable FOR Purpose Continuity of Care Document - 02-25-2015 through 2016 Problems Code Diagnosis DOS Provider Status G10 H[place]S 07-26-2017 [facility] J309 ALLERGIC 07-26-2017 [facility] UNSPECIFIED [id number] OTHER LONG 07-10-2017 [facility] CURRENT DRUG THERAPY [id number] PAIN IN 06-11-2017 [facility] RIGHT ELBOW [facility] B351 TINEA 05-27-2017 [facility] C17435 PAIN IN 05-27-2017 SPECIAL RIGHT TOES CARE PODIAT[facility] OF [facility] [id number] PAIN IN 05-27-2017 SPECIAL LEFT TOES CARE PODIATRY OF [facility] M6281 MUSCLE 02-25-2017 [facility] R4182 ALTERED 09-26-2016 [facility] UNSPECIFIED E870 HYPEROSMOLA 05-16-2016 [facility] HYPERNATREM ASSOCIATES [place] F71734 PAIN IN 05-15-2016 [facility] LEFT KNEE [facility] R918 OTHER 05-08-2016 [facility] NONSPECIFIC [facility] ABNORMAL [facility] ASS FINDING OF LUNG FIELD E46 UNSPECIFIED 05-07-2016 [facility] P ORIE MALNUTRITIO N J189 PNEUMONIA 05-07-2016 [facility] P R0989 OTH SPEC SX 05-07-2016 [facility] THE [facility]AGING ASS CIRC & RESP SYS R509 FEVER 05-07-2016 [facility] UNSPECIFIED [facility]YSICIANS, PLLC R58 HEMORRHAGE 05-07-2016 [facility] NOT [facility] ELSEWHERE SERVICE CLASSIFIED R64 CACHEXIA 05-07-2016 [facility] Z681 BODY MASS 05-07-2016 [facility] INDEX 19.9 [facility] OR LESS INC ADULT R69 ILLNESS 04-12-2016 [facility] UNSPECIFIED TRANSPORTAT ION SER Z9689 PRESENCE OF 04-12-2016 [facility] OTHER [facility] SPECIFIED [facility] FUNCTIONAL IMPLANTS K219 GASTRO-ESOP 03-22-2016 [facility] DIS[facility]ASE WITHOUT ESOPHAGITIS R1310 DYSPHAGIA 03-22-2016 [facility] Z4542 ENCOUNTER 03-22-2016 [facility] MANAGEMENT NEUROPACEMA KER J690 PNEUMONITIS 02-03-2016 [facility] DUE TO LLC INHALATION OF FOOD AND VOMIT H5213 MYOPIA 01-30-2016 [facility] PLL H524 PRESBYOPIA 01-30-2016 [facility] Z4549 ENCOUNTER 01-19-2016 [facility] MGMT OTH IMPLANTED NS DEVICE Z9889 OTHER 01-19-2016 [facility] POSTPROCEDU RAL STATES R262 DIFFICULTY 10-13-2015 [facility] NOT ELSEWHERE CLASSIFIED R51 HEADACHE 10-12-2015 [facility] [id number] CONTUSION 10-12-2015 [facility] OTHER PART [facility] OF HEAD INC INITIAL ENCOUNTER K19GMPG UNSPECIFIED 10-12-2015 [facility] INITIAL SERVICE ENCOUNTER R8290 UNSPECIFIED 09-30-2015 [facility] FIND[facility] IN ASSOCIATES URINE 05591 ABDOMINAL 08-16-2015 [facility] PAIN, ANESTH OF UNSPECIFIED THE BLUE SITE 82984 ABDOMINAL 08-16-2015 [facility] PAIN, PHYSICIANS EPIGASTRIC GROUP 39525 UNSPECIFIED 08-12-2015 [facility] N 5920 CALCULUS OF 08-12-2015 [facility] 03106 NAUSEA 08-12-2015 [facility] 26337 ABDOMINAL 08-12-2015 [facility] PAIN, [facility] PERIUMBILIC INC 91968 ABDOMINAL 08-12-2015 [facility] PAIN OTHER MEDICAL SPECIFIED IMAGING ASS SITE 42171 ABDOMINAL 08-11-2015 [facility] PAIN, [facility] GENERALIZED INC 73822 08-11-2015 [facility] TRANSPORTAT ION SER 03611 SHORTNESS 08-01-2015 [facility] OF BREATH LLC 3334 HUNTINGTONS 07-26-[address] [facility] V762 SCREENING 07-08-2015 [facility] MALIGNANT NEOPLASM OF THE CERVIX 9962 [facility] COMP 03-30-2015 [facility] DEVICE IMPLANT&GRA FT V5302 NEUROPACEMA 03-30-2015 [facility] 4779 ALLERGIC 03-22-2015 [facility] CAUSE UNSPECIFIED 53314 ESOPHAGEAL 03-22-2015 [facility] 49999 ATROPHIC 03-22-2015 [facility] WITHOUT MENTION OF HEMORRHAGE 09030 OTHER SPEC 03-22-2015 [facility] WITHOUT MENTION HEMORRHAGE 71688 LOSS OF 03-22-2015 [facility] 71474 DIARRHEA 03-22-2015 [facility] V4589 OTHER 03-10-2015 [facility] STATUS OTHER V719 OBSERVATION 03-10-2015 [facility] UNSPECIFIED [facility] SUSPECTED CONDITION 46075 DYSPHAGIA 03-09-2015 [facility] UNSPECIFIED [facility]ING ASS Medications Na ND [...] 0 RE 18 FT 41 16 17 VA EN 0 PH CH ER AR AE MA L 25 CY S 0 MG LL C SO FT GE L SE 00 03 10 0 60 30 ME 15 GA Ac NE 53 -1 -2 0. D 16 IN ti XO 64 9- 0- 00 CA 20 EY ve N- 08 20 20 0 RE 13 S 60 17 17 VA TA 1 PH CH BL AR AE ET MA L CY S LL C LO 00 06 10 0 30 30 ME 15 GA Ac RA 78 -1 -1 0. D 12 IN ti TA 15 7- 7- 00 CA 61 EY ve DI 07 20 20 0 RE 03 NE 70 17 17 VA 1 PH CH 10 AR AE MA L MG CY S TA LL BL C ET TA 00 03 10 0 30 30 ME 15 GA Ac B- 90 -1 -1 0. D 12 IN ti A- 40 9- 6- 00 CA 27 EY ve 53 20 20 0 RE 04 TE 08 17 17 VA 0 PH CH TA AR AE BL MA L ET CY S LL C RE 53 07 10 0 11 10 ME 15 GA Ac ME 32 -2 -0 30 D 08 IN ti DY 90 5- 7- .0 CA 90 EY ve 16 20 20 00 RE 50 CA 54 17 17 VA LA 4 PH CH ZI AR AE ME MA L CY S IL OT LL EC C T PA ST E ME 00 04 09 0 30 30 ME 14 GA Ac LA 90 -0 -2 0. D 99 IN ti TO 45 2- 3- 00 CA 65 EY ve NI 18 20 20 0 RE 64 N 25 17 17 VA 3 2 PH CH MG AR AE MA L TA CY S BL ET LL C SE 00 03 09 0 60 30 ME 14 GA Ac NE 53 -1 -2 0. D 99 IN ti XO 64 9- 2- 00 CA 01 EY ve N- 08 20 20 0 RE 49 S 60 17 17 VA TA 1 PH CH BL AR AE ET MA L CY S LL C ST 00 11 09 0 30 30 ME 14 GA Ac OO 53 -0 -2 0. D 97 IN ti L 61 2- 0- 00 CA 27 EY ve SO 06 20 20 0 RE 11 FT 41 16 17 VA EN 0 PH CH ER AR AE MA L 25 CY S 0 MG LL C SO FT GE L LO 00 06 09 0 30 30 ME 14 GA Ac RA 78 -1 -1 0. D 98 IN ti TA 15 7- 9- CA 35 EY ve DI 07 20 20 0 RE 58 NE 70 17 17 VA 1 PH CH 10 AR AE MA L MG CY S TA LL BL C ET TA 00 03 09 0 30 30 ME 14 GA Ac B- 90 -1 -1 0. D 97 IN ti A- 40 9 8- CA 40 EY ve 53 20 20 0 RE 84 TE 08 17 17 VA 0 PH CH TA AR AE BL MA L ET CY S LL C LO 00 06 08 0 30 30 ME 14 GA Ac RA 78 -1 -2 0. D 82 IN ti TA 15 7 5- CA 83 EY ve DI 07 20 20 0 RE 92 NE 70 17 17 VA 1 PH CH 10 AR AE MA L MG CY S TA LL BL C ET ME 00 04 08 0 30 30 ME 14 GA Ac LA 90 -0 -2 0. D 82 IN ti TO 45 2- 5- CA 84 EY ve NI 18 20 20 0 RE 00 N 25 17 17 VA 3 2 PH CH MG AR AE MA L TA CY S BL ET LL C SE 00 03 08 0 60 30 ME 14 GA Ac NE 53 -1 -2 0. D 81 IN ti XO 64 9- 3- 00 CA 13 EY ve N- 08 20 20 0 RE 71 S 60 17 17 VA TA 1 PH CH BL AR AE ET MA L CY S LL C TA 00 03 08 0 30 30 ME 14 GA Ac B- 90 -1 -2 0. D 80 IN ti A- 40 9- 1- CA 08 EY ve 53 20 20 0 RE 41 TE 08 17 17 VA 0 PH CH TA AR AE BL MA L ET CY S LL C ST 00 11 07 0 30 30 ME 14 GA Ac OO 53 -0 -3 0. D 68 IN ti L 61 2- 1- 00 CA 05 EY ve SO 06 20 20 0 RE 89 FT 41 16 17 VA EN 0 PH CH ER AR AE MA L 25 CY S 0 MG LL C SO FT GE L ME 00 04 07 0 30 30 ME 14 GA Ac LA 90 -0 -2 0. D 66 IN ti TO 45 2- 8- 00 CA 70 EY ve NI 18 20 20 0 RE 20 N 25 17 17 VA 3 2 PH CH MG AR AE MA L TA CY S BL ET LL C LO 00 06 07 0 30 30 ME 14 GA Ac RA 78 -1 -2 0. D 66 IN ti TA 15 7- 8- 00 CA 70 EY ve DI 07 20 20 0 RE 12 NE 70 17 17 VA 1 PH CH 10 AR AE MA L MG CY S TA LL BL C ET RE 53 07 07 0 11 10 ME 14 GA Ac ME 32 -2 -2 30 D 66 IN ti DY 90 5- 5- .0 CA 34 EY ve 16 20 20 00 RE 44 CA 54 17 17 VA LA 4 PH CH ZI AR AE ME MA L CY S IL OT LL EC C T PA ST E SE 00 03 07 0 60 30 ME 14 GA Ac NE 53 -1 -2 0. D 64 IN ti XO 64 9- 4- 00 CA 20 EY ve N- 08 20 20 0 RE 99 S 60 17 17 VA TA 1 PH CH BL AR AE ET MA L CY S LL C TA 00 03 07 0 30 30 ME 14 GA Ac B- 90 -1 -2 0. D 65 IN ti A- 40 9 4- 00 CA 17 EY ve 53 20 20 0 RE 52 TE 08 17 17 VA 0 PH CH TA AR AE BL MA L ET CY S LL C ST 00 11 07 0 30 30 ME 14 GA Ac OO 53 -0 -0 0. D 50 IN ti L 61 2- 3- 00 CA 60 EY ve SO 06 20 20 0 RE 20 FT 41 16 17 VA EN 0 PH CH ER AR AE MA L 25 CY S 0 MG LL C SO FT GE L LO 00 06 07 0 30 30 ME 14 GA Ac RA 78 -1 -0 0. D 50 IN ti TA 15 7- 1- 00 CA 60 EY ve DI 07 20 20 0 RE 12 NE 70 17 17 VA 1 PH CH 10 AR AE MA L MG CY S TA LL BL C ET ME 00 04 07 0 30 30 ME 14 GA Ac LA 90 -0 -0 0. D 50 IN ti TO 45 2 1- 00 CA 60 EY ve NI 18 20 20 0 RE 31 N 25 17 17 VA 3 2 PH CH MG AR AE MA L TA CY S BL ET LL C SE 00 03 06 0 60 30 ME 14 GA Ac NE 53 -1 -2 0. D 47 IN ti XO 64 9- 6- 00 CA 35 EY ve N- 08 20 20 0 RE 41 S 60 17 17 VA TA 1 PH CH BL AR AE ET MA L CY S LL C TA 00 03 06 0 30 30 ME 14 GA Ac B- 90 -1 -2 0. D 45 IN ti A- 40 9- 6- 00 CA 93 EY ve 53 20 20 0 RE 04 TE 08 17 17 VA 0 PH CH TA AR AE BL MA L ET CY S LL C ST 00 11 06 0 14 14 ME 14 GA Ac OO 53 -0 -2 0. D 42 IN ti L 61 2- 0- 00 CA 50 EY ve SO 06 20 20 0 RE 63 FT 41 16 17 VA EN 0 PH CH ER AR AE MA L 25 CY S 0 MG LL C SO FT GE L ME 00 04 06 0 14 14 ME 14 GA Ac LA 90 -0 -1 0. D 41 IN ti TO 45 2- 9- 00 CA 58 EY ve NI 18 20 20 0 RE 47 N 25 17 17 VA 3 2 PH CH MG AR AE MA L TA CY S BL ET LL C LO 00 06 06 0 14 14 ME 14 GA Ac RA 78 -1 -1 0. D 41 IN ti TA 15 7- 9- 00 CA 58 EY ve DI 07 20 20 0 RE 41 NE 70 17 17 VA 1 PH CH 10 AR AE MA [...] AR AR ME MA D CY W IL OT LL EC C T PA ST [...] Procedure DOS Code Location Performer Comment ECG 56808 [facility] ROUTINE 7 [facility] ECG W/LEAST 12 LDS TRCG ONLY W/O I&R SET-UP Q0092 [facility] PORTABLE 7 [facility] X-RAY EQUIPMENT RADEX 35485 [facility] ELBOW 2 7 [facility] VIEWS TRANS R0070 [facility] PRTBL 7 [facility] X-RAY EQP&PERS PEDRO/NRS PEDRO-TRIP 1 PT DEBRIDEME 34742 SPECIAL SKRICosmo JR. NT NAIL 7 CARE ANY PODIATRY METHOD OF [place]HAI 6/> DEBRIDEME 70428 SPECIAL SKRIP JR. NT NAIL 7 CARE ANY PODIATRY METHOD OF [place]HAI 6/> COMPREHEN 42418 [facility] [address] [place] [address] HEALTH METABOLIC ASSOCIATE ASSOCIATE PANEL S S EASTON V G0471 [address] HEALTH GRIT BLASTER/URN ASSOCIATE ASSOCIATE SMP CATH S S IND SNF/LAB BHALF STAVE CUTTING SUPERVISOR SBSQ 46986 [facility] 7 FACILITY CARE/DAY E/M STABLE 10 MIN TRAVEL [address] NEC BALL WINDER ASSOCIATE SPEC; S S PRORAT ACTL MILE BLOOD 35708 [facility] COUNT [address] [place] [address] COMPLETE ASSOCIATE ASSOCIATE AUTOMATED S S TRAVEL [address] NEC BALL WINDER ASSOCIATE SPEC; S S PRORAT ACTL MILE EASTON V G0471 [address] GRIT BLASTER/URN ASSOCIATE ASSOCIATE SMP CATH S S IND SNF/LAB BHALF STAVE CUTTING SUPERVISOR DRUG [address] VALPROIC ASSOCIATE ASSOCIATE DIPROPYLA S S CETIC ACID TOTAL SBSQ 48624 [facility] 7 FACILITY CARE/DAY E/M STABLE 10 MIN DRUG [address] VALPROIC ASSOCIATE ASSOCIATE DIPROPYLA S S CETIC ACID TOTAL EASTON V G[address] GRIT BLASTER/URN ASSOCIATE ASSOCIATE SMP CATH S S IND SNF/LAB BHALF STAVE CUTTING SUPERVISOR TRAVEL [address] NEC BALL WINDER ASSOCIATE SPEC; S S PRORAT ACTL MILE ECG 11283 [facility] ROUTINE 7 [facility] ECG W/LEAST 12 LDS TRCG ONLY W/O I&R SBSQ 94317 [facility] 7 FACILITY CARE/DAY E/M STABLE 10 MIN DEBRIDEME 84648 SPECIAL SKRIP JR. NT NAIL 7 CARE ANY PODIATRY METHOD OF [place]HAI 6/> E/M 29516 LIZ [facility] 7 NURSING FACILITY ASSESS STABLE 30 MIN SBSQ 86882 [facility] N[facility] 6 TRINA TRINA FACILITY CARE/DAY E/M STABLE 10 MIN SBSQ 58862 [facility] N[facility]SING 6 TRINA TRINA FACILITY CARE/DAY E/M STABLE 10 MIN CULTURE [address] HEALTH ASSOCIATE ASSOCIATE QUANTTATI S S VE COLONY COUNT URINE URNLS DIP [address] STICK/TAB ASSOCIATE ASSOCIATE LET S S REAGENT AUTO MICROSCOP Y DEBRIDEME 48590 SPECIAL SKRIP JR. NT NAIL 6 CARE TRINA ANY PODIATRY METHOD OF [place]I /> SBSQ 44858 [facility] 6 TRINA TRINA FACILITY CARE/DAY E/M STABLE 10 MIN EASTON V G0471 [facility] BLD 6 HEALTH HEALTH GRIT BLASTER/URN ASSOCIATE ASSOCIATE SMP CATH S S IND SNF/LAB BHALF STAVE CUTTING SUPERVISOR COMPREHEN 11207 [facility] METABOLIC ASSOCIATE ASSOCIATE PANEL S S TRAVEL 1 P9603 [place] [address] HEALTH HEALTH NEC BALL WINDER ASSOCIATE SPEC; S S PRORAT ACTL MILE SBSQ 60063 [facility] 6 TRINA TRINA FACILITY CARE/DAY E/M STABLE 10 MIN SBSQ 84963 ARNRADHA [facility] 6 TRINA TRINA FACILITY CARE/DAY E/M STABLE 10 MIN ECG 69785 [facility] 6 [facility] ECG W/LEAST 12 LDS TRCG ONLY W/O I&R DEBRIDEME 93565 SPECIAL SKRIP JR. NT NAIL 6 CARE TRINA ANY PODIATRY METHOD OF [place]I 6/> SBSQ 76309 [facility] 6 TRINA TRINA FACILITY CARE/DAY E/M STABLE 10 MIN EASTON V G0471 [facility] 6 HEALTH HEALTH GRIT BLASTER/URN ASSOCIATE ASSOCIATE SMP CATH S S IND SNF/LAB BHALF STAVE CUTTING SUPERVISOR TRAVEL 1 P9603 [place] [address] HEALTH HEALTH NEC BALL WINDER ASSOCIATE SPEC; S S PRORAT ACTL MILE BASIC 82221 [facility] METABOLIC HEALTH HEALTH PANEL ASSOCIATE ASSOCIATE CALCIUM S S TOTAL RADIOLOGI 08439 [facility] C 6 LLC LLC EXAMINATI ON KNEE 1/2 VIEWS SET-UP Q0092 [facility] PORTABLE 6 LLC LLC X-RAY EQUIPMENT TRANS R0070 [facility] PRTBL 6 LLC LLC X-RAY EQP&PERS PEDRO/NRS PEDRO-TRIP 1 PT INITIAL 11709 [facility] 6 TRINA TRINA FACILITY CARE/DAY 25 MINUTES RADIOLOGI 45072 [place] EXAM 6 MEDICAL CHELA CHEST 2 IMAGING VIEWS ASS FRONTAL&L ATERAL GROUND A0425 [facility] 6 AMBULANCE AMBULANCE PER SERVICE SERVICE STATUTE MILE RADIOLOGI 77353 [place] MILLARD ALL C 6 MEDICAL EXAMINATI IMAGING ON CHEST ASS SINGLE VIEW FRONTAL ECG 20942 [facility] KUMAR ROUTINE 6 [facility] W/LEAST P 12 LDS I&R ONLY AMB A0427 [facility] SERVICE 6 AMBULANCE AMBULANCE ALS SERVICE SERVICE EMERGENCY TRANSPORT LEVEL 1 SBSQ 77643 ARNRADHA [facility] 6 TRINA TRINA FACILITY CARE/DAY E/M STABLE 10 MIN NONEMERGE A0130 FEDERATED FEDERATED NCY 6 TRANSPORT TRANSPORT TRANSPORT ATION: ATION SER ATION SER [facility] R OSA[place] ELEC ZULEIMA 94103 [facility] 6 Y Y PLS [facility] H[facility]PITAL CPLX DP BRN 1ST HOSPITAL G0463 [facility] [place] 6 Y Y T [facility] VISIT ASSESS & MGMT PT SBSQ 98276 [facility] TRINA TRINA FACILITY CARE/DAY E/M STABLE 10 MIN ELEC ZULEIMA 95849 GISELA VILLATIM 6 MEDICAL OPERATIONS AND MAINTENANCE SPECIALIST PLS GEN SERV CPLX DP FOUNDATIO BRN 1ST [facility] HOSPITAL G0463 [facility] [place] 6 Y Y T [facility] HOSPITAL HOSPITAL VISIT ASSESS & MGMT PT DEBRIDEME 96231 SPECIAL GRETCHEN ROUSE. NT NAIL 6 CARE TRINA ANY PODIATRY METHOD OF [place]I 6/> SWALLOWIN 77100 [place] DAVION G FUNCJ 6 MEDICAL JUNE W/CINERAD IMAGING IOGRAPY/V ASS IDRADIOG MOTION 12321 [facility] CAMEJO FLUOR 6 [facility] H[facility] EVAL INC INC SWLNG FUNCJ C/V REC SBSQ 10143 [facility] TRINA TRINA FACILITY CARE/DAY E/M STABLE 10 MIN ELEC ZULEIMA 21378 GISELA SILVA NSTIM 6 MEDICAL OPERATIONS AND MAINTENANCE SPECIALIST PLS GEN SERV SMPL FOUNDATIO SC/PERPH N W/PRGRMG NONEMERGE A0130 FEDERATED FEDERATED NCY 6 TRANSPORT TRANSPORT TRANSPORT ATION: ATION SER ATION SER [facility] G0463 [facility] [place] 6 Y Y T [facility] H[facility]PITAL HOSPITAL VISIT ASSESS & MGMT PT RADIOLOGI 77381 [facility] C 6 LLC LLC EXAMINATI ON CHEST SINGLE VIEW FRONTAL TRANS R0070 [facility] PRTBL 6 LLC LLC X-RAY EQP&PERS PEDRO/NRS PEDRO-TRIP 1 PT SET-UP Q0092 [facility] PORTABLE 6 LLC LLC X-RAY EQUIPMENT DETERMINA 96672 AEC JOSE ALBERTO TION 6 CONTRACT TAVO [facility]IV [facility] 69876 [facility] 6 CONTRACT TAVO XM&EVAL [facility] COMPRE [facility] NEW PT / VST SBSQ 78940 [facility] 6 [facility] FACILITY CARE/DAY E/M STABLE 10 MIN ELEC ZULEIMA 79897 GISELA ANGEL DREW [facility] 6 MEDICAL OPERATIONS AND MAINTENANCE SPECIALIST PLS GEN SERV SMPL FOUNDATIO SC/PERPH N W/PRGRMG HOSPITAL G0463 [facility] [place] 6 Y Y T [facility] HOSPITAL HOSPITAL VISIT ASSESS & MGMT PT HOSPITAL G0463 [facility] [place] 6 Y Y T [facility] HOSPITAL HOSPITAL VISIT ASSESS & MGMT PT ELEC ZULEIMA 16410 GISELA ANGEL [facility] 6 MEDICAL OPERATIONS AND MAINTENANCE SPECIALIST PLS GEN SERV SMPL FOUNDATIO SC/PERPH N W/PRGRMG NONEMERGE A0130 FEDERATED FEDERATED NCY 6 TRANSPORT TRANSPORT TRANSPORT ATION: ATION SER ATION SER DANIELLA ORTIZ SBSQ 72245 [facility] 6 [facility] FACILITY CARE/DAY E/M STABLE 10 MIN ELEC ZULEIMA 35534 [facility] 6 Y Y PLS [facility] HOSPITAL CPLX DP BRN 1ST HR DEBRIDEME 52843 SPECIAL SKRIP JR. NT NAIL 6 CARE TRINA ANY PODIATRY METHOD OF MIHAI 6/> ECG 58418 [facility] ROUTINE 6 LLC LLC ECG W/LEAST 12 LDS TRCG ONLY W/O I&R E/M 08839 [facility] 6 [facility] NURSING FACILITY ASSESS STABLE 30 MIN SBSQ 46892 [facility] 5 [facility] FACILITY CARE/DAY E/M STABLE 10 MIN NONEMERGE A0130 FEDERATED FEDERATED NCY 5 TRANSPORT TRANSPORT TRANSPORT ATION: ATION SER ATION SER DANIELLA ORTIZ ELEC ZULEIMA 39377 [facility] 5 Y Y PLS [facility] CPLX DP BRN 1ST HR HOSPITAL G0463 [facility] [place] 5 Y Y T CLIN HOSPITAL HOSPITAL VISIT ASSESS & MGMT PT THER 60112 [facility] CAMEJO PROPH/DX 5 [facility] NJX IV INC INC PUSH SINGLE/1S T SBST/DRUG THERAPEUT 94769 [facility] CAMEJO IC 5 [facility] INJECTION [place] [address] BASHIR CAMEJO HEAD/BRAI 5 [facility] N W/O INC INC CONTRAST MATERIAL AMB A0427 [facility] SERVICE 5 AMBULANCE AMBULANCE ALS SERVICE SERVICE EMERGENCY TRANSPORT LEVEL 1 URNLS DIP 09543 [facility] CAMEJO 5 [facility] STICK/TAB INC INC LET REAGENT AUTO MICROSCOP Y BLOOD 87485 [facility] CAMEJO COUNT 5 [facility] COMPLETE INC INC AUTO&AUTO DIFRNTL WBC INJECTION J2405 [facility] CAMEJO 5 [facility] ONDANSETR INC INC ON HCL PER 1 MG COMPREHEN 85606 [facility] CAMEJO SIVE 5 [facility]OS[facility] METABOLIC INC INC PANEL GROUND A0425 [facility] MILEAGE 5 AMBULANCE AMBULANCE PER SERVICE SERVICE STATUTE MILE URNLS DIP 10692 [facility] 5 HEALTH HEALTH STICK/TAB ASSOCIATE ASSOCIATE LET S S REAGENT AUTO MICROSCOP Y CULTURE 25013 [facility] M[facility] BACTERIAL 5 HEALTH HEALTH ASSOCIATE ASSOCIATE QUANTTATI S S VE COLONY COUNT URINE HOSPITAL G0463 [facility] [place] 5 Y Y T CLIN [facility]ITAL HOSPITAL VISIT ASSESS & MGMT PT HOSPITAL G0463 [facility] [place] 5 Y Y T [facility] HOSPITAL VISIT ASSESS & MGMT PT NONEMERGE A0130 [facility] FEDERATED NCY 5 TRANSPORT TRANSPORT TRANSPORT ATION: ATION SER ATION SER DANIELLA ORTIZ ELEC ZULEIMA 90070 BOB KIM NSTIM 5 Y MAC [facility] CPLX DP BRN 1ST HR SBSQ 61511 [facility] FAC[facility] CARE/DAY E/M STABLE 10 MIN SBSQ 78797 ARNRAD[facility] 5 [facility] F[facility] C[facility]/DAY E/M STABLE 10 MIN ESOPHAGOG 55384 [facility] ESTERSTDEVONTE ASTRODUOD 5 PHYSICIAN CAM [place]OSCOPY [place] [address] B[facility] CAME[facility] INFUSION 5 [facility] THERAPY/P INC INC ROPHYLAXI S /DX 1ST TO 1 HR ANES 49924 [facility] UPPER GI 5 ANESTH SHE ENDOSCOPY OF THE PROXIMAL BLUE TO DUODENUM GONADOTRO 74620 BASH[facility] CAMEJO PIN 5 [facility] [place] [address] [facility] INFUSION 5 [facility] THERAPY INC INC PROPHYLAX IS/DX EA HOUR LOCM Q9967 BASHIR CAEMJO [phone] [facility] MG/ML INC [place] [address] [place] ALL ABDOMEN & 5 MEDICAL PELVIS IMAGING W/CONTRAS ASS T MATERIAL BLOOD 09496 [facility] COUNT 5 [facility] COMPLETE INC INC AUTO&AUTO DIFRNTL WBC BASIC 14951 [facility] METABOLIC 5 [facility] PANEL INC INC CALCIUM TOTAL HEPATIC 00016 [facility] C[facility] FUNCTION 5 [facility] PANEL INC INC NONEMERG A0120 [facility]ATED FEDERATED TRNSPRT: 5 [facility]I-BUS TRANSPORT TRANSPORT MTN ATION SER ATION SER AREA/OTH SYS COLLECTIO 99014 [facility] N VENOUS 5 [facility] BLOOD INC INC VENIPUNCT URE RADIOLOGI 81474 [facility] C EXAM 5 [facility] CHEST 2 VIEWS FRONTAL&L ATERAL TRANS R0070 [facility] PRTBL 5 [facility] X-RAY EQP&PERS PEDRO/NRS PEDRO-TRIP 1 PT SET-UP Q0092 [facility] X-RAY EQUIPMENT SBSQ 97135 [facility] FAC[facility] CARE/DAY E/M STABLE 10 MIN SCR G0145 [facility] CERV/VAG SCR AUTO&MNL RSCR PHYS RINGERS J7120 [facility] LACTATE 5 Y Y INFUSION [facility] UP TO 1000 CC INSJ/RPLC 51280 [place] ANGEL RUSSELL MT 5 MEDICAL OPERATIONS AND MAINTENANCE SPECIALIST CRANIAL SERV NEUROSTIM FOUNDATIO GENER N 2/> ELTRDS GENERATOR C1767 [facility] 5 Y Y NEUROSTIM [facility] ULATOR NONRECHAR GEABLE URINE 69264 [facility] 5 Y Y TEST [facility] VISUAL COLOR CMPRSN METHS ANES 38659 [place] CAMERON YURIDIA INTEG 5 MEDICAL EXTREMITI SERVICES ES ANT TRUNK & PERINEUM NOS BASIC 60482 [facility] METABOLIC 5 Y Y PANEL [facility] CALCIUM TOTAL THROMBOPL 55968 [facility] ASTIN 5 Y Y TIME HOSPITAL HOSPITAL PARTIAL PLASMA/WH OLE BLOOD BLOOD 71166 [facility] COUNT 5 Y Y COMPLETE [facility] AUTOMATED URNLS DIP 24786 [facility] 5 Y Y STICK/TAB [facility] LET REAGENT AUTO MICROSCOP Y ECG [id number] [facility] ROUTINE 5 Y Y ECG [facility] W/LEAST 12 LDS TRCG ONLY W/O I&R RADIOLOGI 87612 [place] C EXAM 5 MEDICAL KEESHA CHEST 2 SERV VIEWS FOUNDATIO FRONTAL&L N ATERAL PROTHROMB [id number] [facility] IN TIME 5 Y Y HOSPITAL HOSPITAL COLLECTIO 86515 [facility] N VENOUS 5 Y Y BLOOD [facility] VENIPUNCT URE SWALLOWIN 85184 YOSVANY Alvarez FUNCJ 5 MEDICAL CHELA W/CINERAD IMAGING IOGRAPY/V ASS IDRADIOG Encounters Encounter Start End Date Code Location Performer Type Date [facility] INPATIENT [address] [facility] 6 6 [facility] 6 6 [facility] 6 [facility] 6 6 [facility] 6 6 [facility] 6 6 [facility] 6 HEALTH[facility] E EMERGENCY [id number] RAJIV LEE DEPT 6 6 PHYSICIAN FOR VISIT S, [facility] HIGH SEVERITY& THREAT [facility] - 6 6 [facility] INC [facility] 6 6 [facility] UNIVERSIT - [address] [facility] T OFFICE 90578 [facility] SIL[facility] 6 6 MEDICAL OPERATIONS AND MAINTENANCE SPECIALIST T VISIT SERV 15 FOUNDATIO MINUTES N [facility] 6 [facility] UNIVERSIT - [address] [facility] T OFFICE 07831 [facility]A SILVA [facility] 6 6 MEDICAL OPERATIONS AND MAINTENANCE SPECIALIST T VISIT SERV 15 FOUNDATIO MINUTES HOSPITAL BASHIR [facility] 6 6 [facility] 6 6 [facility] UNIVERSIT - [address] [facility] T OFFICE 20102 GISELA SILVA [facility] 6 6 MEDICAL OPERATIONS AND MAINTENANCE SPECIALIST T VISIT SERV 15 FOUNDATIO MINUTES N SPECIAL [facility] 6 6 [facility] OTHER E OFFICE 03340 [facility] Y T VISIT 5 [facility] - [address] [facility] T [facility] 6 [facility] 6 6 [facility] E [facility] 5 5 [facility] UNIVERSIT [facility] 5 5 Y [facility] BASHIR - 5 5 [facility] OUTPATIEN INC T EMERGENCY 71114 [facility] 5 5 [facility] DEPARTMEN INC T VISIT HIGH/URGE NT [facility] 5 5 Y [facility] 5 5 [facility] OTHER E [facility] 5 5 [facility] OTHER E HOSPITAL BASHIR - 5 5 [facility] OUTPATIEN INC T [facility]OSPITAL BASHIR - 5 5 [facility] OUTPATIEN INC T [facility]OSPITAL BASHIR [facility] 5 5 [facility] OUTPATIEN INC T OFFICE [id number] [facility] ESTERDEVONTE [facility] 5 5 PHYSICIAN CAM T NEW 30 S GROUP MINUTES SPECIAL [facility] 5 5 [facility] OTHER E SPECIAL [facility] 5 5 [facility] OTHER E OFFICE 04162 [facility] 5 5 Y T [facility]ISIT 5 [facility] 5 5 [facility] [address] [facility] T OFFICE 91560 [facility] 5 5 Y T [facility]ISIT 5 [facility] [address] [facility] T OFFICE 47830 [facility] 5 5 Y T VISIT HOSPITAL 40 MINUT[facility] OFFICE 43290 [facility] 5 NURSE [place] T VISIT PRACTITIO 25 NER GR MINUTES
--- OUTSIDE RECORDS SUMMARY | 2017-09-16 15:02 | External Medical Summary Rpt | CCD ---
Author Author , MIHAI HOLM Address Unknown Phone [email or web address] Care Team Providers Care Surgical Product Sales Consultant Name Role Phone RAKESH SHIRAKESH CHA Unavailable Unavailable [facility], [facility] Unavailable Unavailable [facility]OCI[facility], [facility] Unavailable Unavailable ASSOCIATES, [facility] ARNOLD, ARNOLD Unavailable Unavailable ARNOLD TRINA, ARNOLD Unavailable Unavailable TRINA BEINEKE JUNE, BEINEKE Unavailable Unavailable JUNE BESSON TERESA, BESSON Unavailable Unavailable TERESA MILLARD ALL, MILLARD ALL Unavailable Unavailable JUDY MAC, JUDY Unavailable Unavailable [facility] Unavailable Unavailable SERVICE, [facility] Unavailable Unavailable SERVICE, [facility] Unavailable Unavailable [facility] MANISH CHELA, Unavailable Unavailable MANISH CHELA [facility], Unavailable Unavailable [facility] Unavailable Unavailable TRANSPORTATION SER, [facility] GUILIANI LATONIA, Unavailable Unavailable GUILIANI LATONIA [facility] Unavailable Unavailable INC, [facility] Unavailable Unavailable HOSPITAL P, [facility], Unavailable Unavailable [facility]available Unavailable IMAGING ASS, [facility] Un[facility], [facility], Unavailable Unavailable [facility] [...] Unavailable OF [place], [facility], Unavailable Unavailable [facility] ANGEL TIM Unavailable Unavailable 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, WALKER Unavailable Unavailable FOR Purpose Continuity of Care Document - 02-25-2015 through 2016 Problems Code Diagnosis DOS Provider Status G10 [place] 07-26-2017 [facility] J309 ALLERGIC 07-26-2017 [facility] UNSPECIFIED [id number] OTHER LONG 07-10-2017 [facility] CURRENT DRUG THERAPY C39134 PAIN IN 06-11-2017 [facility] RIGHT ELBOW LLC B351 TINEA 05-27-2017 [facility] P[facility] [place] [id number] PAIN IN 05-27-2017 [facility] POD[facility] [place] O76887 PAIN IN 05-27-2017 [facility] LEFT TOES CARE PODIATRY OF [place] M6281 MUSCLE 02-25-2017 [facility] R4182 ALTERED 09-26-2016 [facility] STATUS [facility] UNSPECIFIED E870 HYPEROSMOLA 05-16-2016 [facility] HYPER[place] ASS[place]IATES [place] D95115 PAIN IN 05-15-2016 [facility] LEFT KNEE LLC R918 OTHER 05-08-2016 [facility] NONSPECIFIC [facility] ABNORMAL [facility]ING ASS FINDING OF LUNG FIELD E46 UNSPECIFIED 05-07-2016 [facility] P ORIE MALNUTRITIO N J189 PNEUMONIA 05-07-2016 [facility] P R0989 OTH SPEC SX 05-07-2016 [facility] THE [facility]ING ASS CIRC & RESP SYS R509 FEVER 05-07-2016 [facility] UNSPECIFIED [facility]YSICIANS, PLLC R58 HEMORRHAGE 05-07-2016 [facility] NOT [facility] ELSEWHERE SERVICE CLASSIFIED R64 CACHEXIA 05-07-2016 [facility] Z681 BODY MASS 05-07-2016 [facility] INDEX 19.9 [facility] OR LESS INC ADULT R69 ILLNESS 04-12-2016 [facility] UNSPECIFIED TRANSPORTAT ION SER Z9689 PRESENCE OF 04-12-2016 [place] [facility] OTHER SERV SPECIFIED [facility] FUNCTIONAL IMPLANTS K219 GASTRO-ESOP 03-22-2016 [facility] DISEASE WITHOUT ESOPHAGITIS R1310 DYSPHAGIA 03-22-2016 [facility] Z4542 ENCOUNTER 03-22-2016 [place] [facility] MANAGEMENT NEUROPACEMA KER J690 PNEUMONITIS 02-03-2016 [facility] DUE TO LLC INHALATION OF FOOD AND VOMIT H5213 MYOPIA 01-30-2016 [facility] H524 PRESBYOPIA 01-30-2016 [facility] PLL Z4549 ENCOUNTER 01-19-2016 [facility] MGMT OTH IMPLANTED NS DEVICE Z9889 OTHER 01-19-2016 [facility] POSTPROCEDU RAL STATES R262 DIFFICULTY 10-13-2015 [facility] NOT ELSEWHERE CLASSIFIED R51 HEADACHE 10-12-2015 [facility] [id number] CONTUSION 10-12-2015 [facility] OTHER PART [facility] OF HEAD INC INITIAL ENCOUNTER W63OVWV UNSPECIFIED 10-12-2015 [facility] INITIAL SERVICE ENCOUNTER R8290 UNSPECIFIED 09-30-2015 [facility] ABNORMAL HEALTH FINDINGS IN ASSOCIATES URINE 37823 ABDOMINAL 08-16-2015 COMM[facility]ITY PAIN, ANESTH OF UNSPECIFIED THE BLUE SITE 87106 ABDOMINAL 08-16-2015 [facility] PAIN, PHYSICIANS EPIGASTRIC GROUP 41378 UNSPECIFIED 08-12-2015 [facility] N 5920 CALCULUS OF 08-12-2015 [facility] 94964 NAUSEA 08-12-2015 [facility] 03841 ABDOMINAL 08-12-2015 [facility] PAIN, [facility] PERIUMBILIC INC 85216 ABDOMINAL 08-12-2015 [facility] PA[facility] OTHER MEDICAL SPECIFIED IMAGING ASS SITE 47703 ABDOMINAL 08-11-2015 [facility] PAIN, [facility] GENERALIZED INC 59281 08-11-2015 [facility] TRANSPORTAT ION SER 43048 SHORTNESS 08-01-2015 [facility] OF BREATH LLC 3334 [place] 07-26-2015 [facility] V762 SCREENING 07-08-2015 [facility] MALIGNANT NEOPLASM OF THE CERVIX 9962 [facility] COMP 03-30-2015 [place] [facility] SYSTEM DEVICE IMPLANT&GRA FT V5302 NEUROPACEMA 03-30-2015 [facility] 4779 ALLERGIC 03-22-[address] [facility] CAUSE UNSPECIFIED 30262 ESOPHAGEAL 03-22-2015 [facility] REFLUX [facility] 20207 ATROPHIC 03-22-2015 [facility] GASTRITIS [facility] WITHOUT MENTION OF HEMORRHAGE 49615 OTHER SPEC 03-22-2015 [facility] WITHOUT MENTION HEMORRHAGE 06958 LOSS OF 03-22-2015 [facility] 37854 DIARRHEA 03-22-2015 [facility] V4589 OTHER 03-10-2015 [facility] POSTSMCLAREN FLINT L STATUS OTHER V719 OBSERVATION 03-10-2015 [place] [facility] FOR SERV UNSPECIFIED [facility]ATION SUSPECTED CONDITION 58463 DYSPHAGIA 03-09-2015 [facility] UNSPECIFIED [facility]ING ASS Medications Na ND [...] 0 RE 18 FT 41 16 17 WY EN 0 PH CH ER AR AE MA L 25 CY S 0 MG LL C SO FT GE L SE 00 03 10 0 60 30 ME 15 GA Ac NE 53 -1 -2 0. D 16 IN ti XO 64 9- 0- 00 CA 20 EY ve N- 08 20 20 0 RE 13 S 60 17 17 WY TA 1 PH CH BL AR AE ET MA L CY S LL C LO 00 06 10 0 30 30 ME 15 GA Ac RA 78 -1 -1 0. D 12 IN ti TA 15 7- 7- 00 CA 61 EY ve DI 07 20 20 0 RE 03 NE 70 17 17 WY 1 PH CH 10 AR AE MA L MG CY S TA LL BL C ET TA 00 03 10 0 30 30 ME 15 GA Ac B- 90 -1 -1 0. D 12 IN ti A- 40 9- 6- 00 CA 27 EY ve 53 20 20 0 RE 04 TE 08 17 17 WY 0 PH CH TA AR AE BL MA L ET CY S LL C RE 53 07 10 0 11 10 ME 15 GA Ac ME 32 -2 -0 30 D 08 IN ti DY 90 5- 7- .0 CA 90 EY ve 16 20 20 00 RE 50 CA 54 17 17 WY LA 4 PH CH ZI AR AE ME MA L CY S MI OT LL EC C T PA ST E ME 00 04 09 0 30 30 ME 14 GA Ac LA 90 -0 -2 0. D 99 IN ti TO 45 2- 3- 00 CA 65 EY ve NI 18 20 20 0 RE 64 N 25 17 17 WY 3 2 PH CH MG AR AE MA L TA CY S BL ET LL C SE 00 03 09 0 60 30 ME 14 GA Ac NE 53 -1 -2 0. D 99 IN ti XO 64 9- 2- 00 CA 01 EY ve N- 08 20 20 0 RE 49 S 60 17 17 WY TA 1 PH CH BL AR AE ET MA L CY S LL C ST 00 11 09 0 30 30 ME 14 GA Ac OO 53 -0 -2 0. D 97 IN ti L 61 2- 0- 00 CA 27 EY ve SO 06 20 20 0 RE 11 FT 41 16 17 WY EN 0 PH CH ER AR AE MA L 25 CY S 0 MG LL C SO FT GE L LO 00 06 09 0 30 30 ME 14 GA Ac RA 78 -1 -1 0. D 98 IN ti TA 15 7- 9- 00 CA 35 EY ve DI 07 20 20 0 RE 58 NE 70 17 17 WY 1 PH CH 10 AR AE MA L MG CY S TA LL BL C ET TA 00 03 09 0 30 30 ME 14 GA Ac B- 90 -1 -1 0. D 97 IN ti A- 40 9- 8- 00 CA 40 EY ve 53 20 20 0 RE 84 TE 08 17 17 WY 0 PH CH TA AR AE BL MA L ET CY S LL C LO 00 06 08 0 30 30 ME 14 GA Ac RA 78 -1 -2 0. D 82 IN ti TA 15 7 5- CA 83 EY ve DI 07 20 20 0 RE 92 NE 70 17 17 WY 1 PH CH 10 AR AE MA L MG CY S TA LL BL C ET ME 00 04 08 0 30 30 ME 14 GA Ac LA 90 -0 -2 0. D 82 IN ti TO 45 2- 5- 00 CA 84 EY ve NI 18 20 20 0 RE 00 N 25 17 17 WY 3 2 PH CH MG AR AE MA L TA CY S BL ET LL C SE 00 03 08 0 60 30 ME 14 GA Ac NE 53 -1 -2 0. D 81 IN ti XO 64 9- 3- 00 CA 13 EY ve N- 08 20 20 0 RE 71 S 60 17 17 WY TA 1 PH CH BL AR AE ET MA L CY S LL C TA 00 03 08 0 30 30 ME 14 GA Ac B- 90 -1 -2 0. D 80 IN ti A- 40 9- 1- 00 CA 08 EY ve 53 20 20 0 RE 41 TE 08 17 17 WY 0 PH CH TA AR AE BL MA L ET CY S LL C ST 00 11 07 0 30 30 ME 14 GA Ac OO 53 -0 -3 0. D 68 IN ti L 61 2- 1- 00 CA 05 EY ve SO 06 20 20 0 RE 89 FT 41 16 17 WY EN 0 PH CH ER AR AE MA L 25 CY S 0 MG LL C SO FT GE L LO 00 06 07 0 30 30 ME 14 GA Ac RA 78 -1 -2 0. D 66 IN ti TA 15 7- 8- 00 CA 70 EY ve DI 07 20 20 0 RE 12 NE 70 17 17 WY 1 PH CH 10 AR AE MA L MG CY S TA LL BL C ET ME 00 04 07 0 30 30 ME 14 GA Ac LA 90 -0 -2 0. D 66 IN ti TO 45 2- 8- 00 CA 70 EY ve NI 18 20 20 0 RE 20 N 25 17 17 WY 3 2 PH CH MG AR AE MA L TA CY S BL ET LL C RE 53 07 07 0 11 10 ME 14 GA Ac ME 32 -2 -2 30 D 66 IN ti DY 90 5- 5- .0 CA 34 EY ve 16 20 20 00 RE 44 CA 54 17 17 WY LA 4 PH CH ZI AR AE ME MA L CY S MI OT LL EC C T PA ST E SE 00 03 07 0 60 30 ME 14 GA Ac NE 53 -1 -2 0. D 64 IN ti XO 64 9- 4- 00 CA 20 EY ve N- 08 20 20 0 RE 99 S 60 17 17 WY TA 1 PH CH BL AR AE ET MA L CY S LL C TA 00 03 07 0 30 30 ME 14 GA Ac B- 90 -1 -2 0. D 65 IN ti A- 40 9- 4- 00 CA 17 EY ve 53 20 20 0 RE 52 TE 08 17 17 WY 0 PH CH TA AR AE BL MA L ET CY S LL C ST 00 11 07 0 30 30 ME 14 GA Ac OO 53 -0 -0 0. D 50 IN ti L 61 2- 3- 00 CA 60 EY ve SO 06 20 20 0 RE 20 FT 41 16 17 WY EN 0 PH CH ER AR AE MA L 25 CY S 0 MG LL C SO FT GE L ME 00 04 07 0 30 30 ME 14 GA Ac LA 90 -0 -0 0. D 50 IN ti TO 45 2- 1- 00 CA 60 EY ve NI 18 20 20 0 RE 31 N 25 17 17 WY 3 2 PH CH MG AR AE MA L TA CY S BL ET LL C LO 00 06 07 0 30 30 ME 14 GA Ac RA 78 -1 -0 0. D 50 IN ti TA 15 7- 1- 00 CA 60 EY ve DI 07 20 20 0 RE 12 NE 70 17 17 WY 1 PH CH 10 AR AE MA L MG CY S TA LL BL C ET TA 00 03 06 0 30 30 ME 14 GA Ac B- 90 -1 -2 0. D 45 IN ti A- 40 9- 6- 00 CA 93 EY ve 53 20 20 0 RE 04 TE 08 17 17 WY 0 PH CH TA AR AE BL MA L ET CY S LL C SE 00 03 06 0 60 30 ME 14 GA Ac NE 53 -1 -2 0. D 47 IN ti XO 64 9- 6- 00 CA 35 EY ve N- 08 20 20 0 RE 41 S 60 17 17 WY TA 1 PH CH BL AR AE ET MA L CY S LL C ST 00 11 06 0 14 14 ME 14 GA Ac OO 53 -0 -2 0. D 42 IN ti L 61 2- 0- 00 CA 50 EY ve SO 06 20 20 0 RE 63 FT 41 16 17 WY EN 0 PH CH ER AR AE MA L 25 CY S 0 MG LL C SO FT GE L ME 00 04 06 0 14 14 ME 14 GA Ac LA 90 -0 -1 0. D 41 IN ti TO 45 2- 9- 00 CA 58 EY ve NI 18 20 20 0 RE 47 N 25 17 17 WY 3 2 PH CH MG AR AE MA L TA CY S BL ET LL C LO 00 06 06 0 14 14 ME 14 GA Ac RA 78 -1 -1 0. D 41 IN ti TA 15 7- 9- 00 CA 58 EY ve DI 07 20 20 0 RE 41 NE 70 17 17 WY 1 PH CH 10 AR AE MA [...] AR AR ME MA D CY W MI OT LL EC C T PA ST [...] Procedure DOS Code Location Performer Comment ECG 24352 [facility] ROUTINE 7 [facility] ECG W/LEAST 12 LDS TRCG ONLY W/O I&R TRANS R0070 [facility] PRTBL 7 [facility] X-RAY EQP&PERS PEDRO/NRS PEDRO-TRIP 1 PT SET-UP Q0092 [facility] PORTABLE 7 [facility] X-RAY EQUIPMENT RADEX 26223 [facility] EL[facility]OW 2 7 [facility] VIEWS DEBRIDEME 28534 SPECIAL SKRIP JR. NT NAIL 7 CARE ANY PODIATRY METHOD OF [place]I 6/> DEBRIDEME 62256 SPECIAL SKRIP JR. NT NAIL 7 CARE ANY PODIATRY METHOD OF [place] 6/> SBSQ 13797 [facility] 7 FACILITY CARE/DAY E/M STABLE 10 MIN TRAVEL 1 P9603 [facility] HEALTH NEC PLAYER DEVELOPMENT MANAGER ASSOCIATE SPEC; S S PRORAT ACTL MILE BLOOD 00090 [facility] COUNT 7 HEALTH HEALTH COMPLETE ASSOCIATE ASSOCIATE AUTOMATED S S EASTON V G0471 [place] [address] HEALTH HEALTH EPIC CADENCE ANALYST/URN ASSOCIATE ASSOCIATE REED CATH S S IND SNF/LAB BHALF [facility] TECH COMPREHEN [address] HEALTH METABOLIC ASSOCIATE ASSOCIATE PANEL S S EASTON V G0471 [place] [address] HEALTH HEALTH EPIC CADENCE ANALYST/URN ASSOCIATE ASSOCIATE SMP CATH S S IND SNF/LAB BHALF CENTRAL SERVICES TECH DRUG [address] [facility] [address] VALPROIC ASSOCIATE ASSOCIATE ELENA S S CETIC ACID TOTAL TRAVEL [address] NEC PLAYER DEVELOPMENT MANAGER ASSOCIATE SPEC; S S PRORAT ACTL MILE SBSQ 36866 [facility] 7 FACILITY CARE/DAY E/M STABLE 10 MIN TRAVEL [address] NEC PLAYER DEVELOPMENT MANAGER ASSOCIATE SPEC; S S PRORAT ACTL MILE DRUG 90446 [facility] [address] [place] [address] VALPROIC ASSOCIATE ASSOCIATE ELENA Walker S CETIC ACID TOTAL EASTON V G04[address] EPIC CADENCE ANALYST/URN ASSOCIATE ASSOCIATE REED CATH S S IND SNF/LAB BHALF [facility] ECG 93830 [facility]INE 7 LLC LLC ECG W/LEAST 12 LDS TRCG ONLY W/O I&R SBSQ 24401 [facility] 7 FACILITY CARE/DAY E/M STABLE 10 MIN DEBRIDEME 99431 SPECIAL SKRIP JR. NT NAIL 7 CARE ANY PODIATRY METHOD OF [place]I 6/> E/M [address] [facility] 7 NURSING FACILITY ASSESS STABLE 30 MIN SBSQ 24884 [facility] 6 TRINA TRINA FACILITY CARE/DAY E/M STABLE 10 MIN SBSQ 72237 [facility] 6 TRINA TRINA FACILITY CARE/DAY E/M STABLE 10 MIN URNLS DIP [address] STICK/TAB ASSOCIATE ASSOCIATE CRISTY Walker S REAGENT AUTO MICROSCOP Y CULTURE [address] HEALTH ASSOCIATE ASSOCIATE QUANTTATI S S VE COLONY COUNT URINE DEBRIDEME 00309 SPECIAL SKRIP JR. NT NAIL 6 CARE TRINA ANY PODIATRY METHOD OF [place] /> SBSQ 08633 [facility] 6 TRINA TRINA FACILITY CARE/DAY E/M STABLE 10 MIN TRAVEL [address] NEC PLAYER DEVELOPMENT MANAGER ASSOCIATE SPEC; S S PRORAT ACTL MILE EASTON V G0471 [facility] 6 HEALTH HEALTH EPIC CADENCE ANALYST/URN ASSOCIATE ASSOCIATE SMP CATH S S IND SNF/LAB BHALF CENTRAL SERVICES TECH COMPREHEN 55432 [place] [address] HEALTH HEALTH METABOLIC ASSOCIATE ASSOCIATE PANEL S S SBSQ 80324 [facility] 6 TRINA TRINA FACILITY CARE/DAY E/M STABLE 10 MIN SBSQ 12816 [facility] 6 TRINA TRINA FACILITY CARE/DAY E/M STABLE 10 MIN ECG 73041 [facility]OUTINE 6 LLC [facility] ECG W/LEAST 12 LDS TRCG ONLY W/O I&R DEBRIDEME 28620 SPECIAL GRETCHEN INMAN NT NAIL 6 CARE TRINA ANY PODIATRY METHOD OF [place]I 6/> SBSQ 64625 [facility] 6 TRINA TRINA FACILITY CARE/DAY E/M STABLE 10 MIN TRAVEL 1 P9603 [place] [address] HEALTH HEALTH NEC PLAYER DEVELOPMENT MANAGER ASSOCIATE SPEC; S S PRORAT ACTL MILE BASIC 84951 [facility] METABOLIC HEALTH HEALTH PANEL ASSOCIATE ASSOCIATE CALCIUM S S TOTAL EASTON V G0471 [facility] HEALTH HEALTH EPIC CADENCE ANALYST/URN ASSOCIATE ASSOCIATE REED CATH S S IND SNF/LAB BHALF CENTRAL SERVICES TECH RADIOLOGI 26247 [facility] C 6 [facility] EXAMINATI ON KNEE 1/2 VIEWS SET-UP Q0092 [facility] PORTABLE 6 [facility] X-RAY EQUIPMENT TRANS R0070 [facility] PRTBL 6 [facility] X-RAY EQP&PERS PEDRO/NRS PEDRO-TRIP 1 PT INITIAL 86194 [facility] 6 TRINA TRINA FACILITY CARE/DAY 25 MINUTES RADIOLOGI 10488 [place] EXAM 6 MEDICAL CHELA CHEST 2 IMAGING VIEWS ASS FRONTAL&L ATERAL RADIOLOGI 65928 [facility] C 6 MEDICAL EXAMINATI IMAGING ON CHEST ASS SINGLE VIEW FRONTAL AMB A0427 [facility] SERVICE 6 AMBULANCE AMBULANCE ALS SERVICE SERVICE EMERGENCY TRANSPORT LEVEL 1 GROUND A0425 GENER[facility] ACUTE HOSPITALEA 6 AMBULANCE AMBULANCE PER SERVICE SERVICE STATUTE [facility] ECG 14175 [facility] KUMAR ROUTINE 6 [facility] W/LEAST P 12 LDS I&R ONLY SBSQ 86404 [facility] 6 TRINA TRINA FACILITY CARE/DAY E/M STABLE 10 MIN ELEC ZULEIMA 77700 [facility] 6 Y Y PLS GEN HOSPITAL HOSPITAL CPLX DP BRN 1ST HR HOSPITAL G0463 [facility] 6 Y Y T CLIN [facility]ITAL HOSPITAL VISIT ASSESS & MGMT PT NONEMERGE A0130 [facility] FEDERATED NCY 6 TRANSPORT TRANSPORT TRANSPORT ATION: ATION SER ATION SER WHEELYURIDIAI Liv VAN SBSQ 42039 [facility] NURSING 6 TRINA TRINA FACILITY CARE/DAY E/M STABLE 10 MIN HOSPITAL G0463 [facility] 6 Y Y T CLIN [facility]ITAL HOSPITAL VISIT ASSESS & MGMT PT ELEC ZULEIMA 30580 G[facility] VILLATIM 6 MEDICAL ART DEALER PLS GEN SERV CPLX DP FOUNDATIO BRN 1ST N HR DEBRIDEME 06166 SPECIAL SKRIP JR. NT NAIL 6 CARE TRINA ANY PODIATRY METHOD OF [place]HAI 6/> MOTION 07522 [facility] FLUOR 6 [facility] EVAL INC INC SWLNG FUNCJ C/V REC SWALLOWIN 39304 YOSVANY Alvarez FUNCJ 6 MEDICAL JUNE W/CINERAD IMAGING IOGRAPY/V ASS IDRADIOG SBSQ 18493 [facility] NURSING 6 TRINA TRINA FACILITY CARE/DAY E/M STABLE 10 MIN HOSPITAL G0463 [facility] 6 Y Y T CLIN HOSPITAL HOSPITAL VISIT ASSESS & MGMT PT NONEMERGE A0130 [facility]ERATED FEDERATED NCY 6 TRANSPORT TRANSPORT TRANSPORT ATION: ATION SER ATION SER DANIELLA Peck VAN ELEC ZULEIMA 23662 GISELA SILVA NSTIM 6 MEDICAL ART DEALER PLS GEN SERV SMPL FOUNDATIO SC/PERPH N W/PRGRMG SET-UP Q0092 [facility] PORTABLE 6 LLC LLC X-RAY EQUIPMENT RADIOLOGI 82922 [facility] C 6 LLC LLC EXAMINATI ON CHEST SINGLE VIEW FRONTAL TRANS R0070 [facility] PRTBL 6 LLC LLC X-RAY EQP&PERS PEDRO/NRS PEDRO-TRIP 1 PT DETERMINA 47828 [facility]EC JOSE ALBERTO TION 6 CONTRACT TAVO [facility]IV [facility] PLL OPHTH 81780 [facility] 6 CONTRACT TAVO XM&EVAL [facility] COMPRE PLL NEW PT 1/> VST SBSQ 29782 [facility] 6 [facility] FACILITY CARE/DAY E/M STABLE 10 MIN HOSPITAL G0463 [facility] 6 Y Y T [facility] VISIT ASSESS & MGMT PT ELEC ZULEIMA 22907 [facility] 6 Y Y [facility] SMPL SC/PERPH W/PRGRMG ELEC ZULEIMA 40337 [facility] 6 MEDICAL ART DEALER PLS GEN SERV SMPL FOUNDATIO SC/PERPH N W/PRGRMG ELEC ZULEIMA 38726 [facility] 6 Y Y [facility] CPLX DP BRN 1ST HR HOSPITAL G0463 [facility] 6 Y Y T [facility] VISIT ASSESS & MGMT PT NONEMERGE A0130 FEDERATED FEDERATED NCY 6 TRANSPORT TRANSPORT TRANSPORT ATION: ATION SER ATION SER DANIELLA ORTIZ SBSQ 36856 [facility] 6 [facility] FACILITY CARE/DAY E/M STABLE 10 MIN DEBRIDEME 33313 SPECIAL SKRIP JR. NT NAIL 6 CARE TRINA ANY PODIATRY METHOD OF [place]I 6/> ECG 56949 [facility] ROUTINE 6 LLC LLC ECG W/LEAST 12 LDS TRCG ONLY W/O I&R E/M 06569 [facility] ANNUAL 6 [facility] NURSING FACILITY ASSESS STABLE 30 MIN SBSQ 00855 [facility] N[facility] 5 [facility] FACILITY CARE/DAY E/M STABLE 10 MIN NONEMERGE A0130 FEDERATED FEDERATED NCY 5 TRANSPORT TRANSPORT TRANSPORT ATION: ATION SER ATION SER SKYLERI R [facility] G0463 [facility] 5 Y Y T [facility] HOSPITAL VISIT ASSESS & MGMT PT ELEC ZULEIMA 56680 [facility] 5 Y Y PLS [facility] HOSPITAL CPLX DP BRN 1ST HR AMB A0427 [facility] SERVICE 5 AMBULANCE AMBULANCE ALS SERVICE SERVICE EMERGENCY TRANSPORT LEVEL 1 COMPREHEN 22411 [facility] SIVE 5 [facility] METABOLIC INC INC PANEL INJECTION J2405 [facility] CAMEJO 5 [facility] ONDANSETR INC INC ON HCL PER [address] [place] [address] [facility] HEAD/BRAI 5 [facility] N W/O INC INC CONTRAST MATERIAL GROUND A0425 GENERAL ACUTE HOSPITALEA 5 AMBULANCE AMBULANCE PER SERVICE SERVICE STATUTE MILE THER 72899 [facility] PROPH/DX 5 [facility] NJX IV INC INC PUSH SINGLE/1S T SBST/DRUG BLOOD 78244 [facility] COUNT 5 [facility] COMPLETE INC INC AUTO&AUTO DIFRNTL WBC URNLS DIP 47416 [facility]AMEJO 5 [facility] STICK/TAB INC INC LET REAGENT AUTO MICROSCOP Y THERAPEUT 78094 [facility] IC 5 [facility] INJECTION INC INC IV PUSH EACH NEW DRUG URNLS DIP 05002 [facility] 5 HEALTH HEALTH STICK/TAB ASSOCIATE ASSOCIATE LET S S REAGENT AUTO MICROSCOP Y CULTURE 41944 [facility] BACTERIAL 5 HEALTH HEALTH ASSOCIATE ASSOCIATE QUANTTATI S S VE COLONY COUNT URINE HOSPITAL G0463 [facility] 5 Y Y T CLIN HOS[facility]ITAL HOSPITAL VISIT ASSESS & MGMT PT HOSPITAL G0463 [facility] 5 Y Y T [facility] HOSPITAL VISIT ASSESS & MGMT PT ELEC ZULEIMA 189[address] [facility] 5 Y MAC PLS [facility] CPLX DP BRN 1ST HR NONEMERGE A0130 FEDERATED FEDERATED NCY 5 TRANSPORT TRANSPORT TRANSPORT ATION: ATION SER ATION SER DANIELLA ORTIZ SBSQ 64157 [facility] 5 TRINA TRINA FACILITY CARE/DAY E/M STABLE 10 MIN SBSQ 40772 [facility] 5 [facility] FACILITY CARE/DAY E/M STABLE 10 MIN GONADOTRO 84854 [facility] PIN 5 [facility] [place] [address] [facility] INFUSION 5 [facility] THERAPY/P INC INC ROPHYLAXI S /DX 1ST TO 1 [place] [address] [facility] INFUSION 5 [facility] THERAPY INC INC PROPHYLAX IS/DX EA HOUR ANES 10050 [facility] UPPER GI 5 ANESTH SHE ENDOSCOPY OF THE PROXIMAL BLUE TO DUODENUM ESOPHAGOG 13101 [facility] INGA ASTRODUOD 5 PHYSICIAN CAM [place]OS[place] [address] [facility] ALL [facility]BDOMEN & 5 MEDICAL PELVIS IMAGING W/CONTRAS ASS T MATERIAL LOCM Q9967 [facility] [phone] [facility] MG/ML INC INC IODINE CONCENTRA TION PER ML COLLECTIO 22262 [facility] N VENOUS 5 [facility] BLOOD INC INC VENIPUNCT URE BASIC 96222 [facility] METABOLIC 5 [facility] PANEL INC INC CALCIUM TOTAL NONEMERG A0120 [facility] FED[facility]ATED TRNSPRT: 5 [facility]SPORT TRANSPORT MTN ATION SER ATION SER AREA/OTH SYS HEPATIC 61108 [facility] FUNCTION 5 [facility] PANEL INC INC BLOOD 19932 [facility] COUNT 5 [facility] COMPLETE INC INC AUTO&AUTO DIFRNTL WBC TRANS R0070 [facility] PRTBL 5 [facility] X-RAY EQP&PERS PEDRO/NRS PEDRO-TRIP 1 PT SET-UP Q0092 [facility] PORTABLE 5 [facility] X-RAY EQUIPMENT RADIOLOGI 62578 [facility] C EXAM 5 [facility] CHEST 2 VIEWS FRONTAL&L ATERAL SBSQ 18261 [facility] F[facility] CARE/DAY E/M STABLE 10 MIN SCR G0145 [facility] CERV/VAG SCR AUTO&MNL RSCR PHYS URINE 97882 [facility] 5 Y Y TEST [facility]ISUAL COLOR CMPRSN METHS RINGERS J7120 [facility] LACTATE 5 Y Y INFUSION [facility] UP TO 1000 CC ANES 95357 GISELA CAMERON [facility] IN[facility] 5 MEDICAL EXTREMITI SERVICES ES ANT TRUNK & PERINEUM NOS INSJ/RPLC 52327 [facility] MT 5 Y Y CRANIAL [facility] NEUROSTIM GENER 2/> ELTRDS GENERATOR C1767 [facility] 5 Y Y NEUROSTIM [facility] ULATOR NONRECHAR GEABLE COLLECTIO 94419 [facility] N VENOUS 5 Y Y BLOOD [facility] VENIPUNCT URE THROMBOPL 47626 [facility] ASTIN 5 Y Y TIME [facility] PARTIAL PLASMA/WH OLE BLOOD PROTHROMB 12236 [facility] IN TIME 5 Y Y [facility] BASIC 60425 [facility] METABOLIC 5 Y Y PANEL [facility] CALCIUM TOTAL RADIOLOGI 70650 [facility] C EXAM 5 Y Y CHEST 2 [facility] VIEWS FRONTAL&L ATERAL ECG 60949 [facility] ROUTINE 5 Y Y ECG [facility] W/LEAST 12 LDS TRCG ONLY W/O I&R URNLS DIP 72890 [facility] 5 Y Y STICK/TAB [facility] LET REAGENT AUTO MICROSCOP Y BLOOD 72857 [facility] COUNT 5 Y Y COMPLETE [facility] AUTOMATED SWALLOWIN [id number] YOSVANY ÁLVAREZ 5 MEDICAL CHELA W/CINERAD IMAGING IOGRAPY/V ASS IDRADIOG Encounters Encounter Start End Date Code Location Performer Type Date [facility] [address] [facility] [address] [facility] 7 [facility] 7 [facility] 6 [facility] 6 6 [facility] - 6 6 [facility] INPATIENT INC EMERGENCY [id number] RAJIV LEE DEPT 6 6 PHYSICIAN FOR VISIT S, PLLC HIGH SEVERITY& THREAT FUNJ 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 DEALER T [facility]ISIT SERV 15 FOUNDATIO MINUTES N [facility] 6 6 [facility] UNIVERSIT - 6 6 [facility] OFFICE 38736 GISELA [facility] 6 6 MEDICAL ART DEALER T VISIT SERV 15 FOUNDATIO MINUTES N HOSPITAL BASHIR - 6 6 [facility] 6 [facility] OTHER HOSPITAL UNIVERSIT - 6 6 [facility] T OFFICE 10849 GISELA [facility] 6 6 MEDICAL ART DEALER T [facility]ISIT SERV 15 FOUNDATIO MINUTES N [facility] [place] [facility] 6 6 [facility]PITAL UNIVERSIT [facility] 6 6 [facility] T OFFICE [id number] [facility] T [facility] 5 HOSPITAL MINUTES [facility] 6 [facility] 6 [facility] 5 5 [facility] H[facility] UNIVERSIT [facility] 5 5 Y [facility] BASH[facility] - 5 5 [facility] T EMERGENCY [id number] BASH[facility] 5 5 MEM [facility] DEPARTMEN INC T VISIT HIGH/URGE NT [facility] UNIVERSIT [facility] 5 5 Y [facility] UNIVERSIT - 5 5 [facility] T [facility] 5 5 [facility] E [facility] 5 5 [facility] OTHER E HOSPITAL BASHIR - 5 5 [facility]EN [facility] H[facility] BASHIR - 5 5 [facility] BASH[facility] 5 5 [facility] T OFFICE 68168 [facility] 5 5 PHYSICIAN CAM T NEW 30 S GROUP MINUTES [facility] [place] [facility] UNIVERSIT [facility] 5 5 Y [facility] T OFFICE 48880 [facility] T VISIT 5 [facility] UNIVERSIT - 5 5 Y [facility] UNIVERSIT [facility] 5 5 Y [facility] T OFFICE 17783 [facility] T [facility] 5 [facility] OFFICE [id number] [facility] 5 Y T VISIT HOSPITAL 40 MINUT[facility] OFFICE 12817 [facility] 5 NURSE [place] T [facility]ISIT PRACTITIO 25 NER [address] [facility] UNIVERSIT - 5 5 Y [facility] T
--- OUTSIDE RECORDS SUMMARY | 2017-09-16 15:02 | External Medical Summary Rpt | CCD ---
Author Author , MIHAI HOLM Address Unknown Phone [email or web address] Providers Care Rust Proofer Name Role Phone RAKESH SHIRAKESH CHA Unavailable Unavailable [facility], [facility] Unavailable Unavailable [facility], [facility] Unavailable Unavailable ASSOCI[facility], [facility] ARNOLD, ARNOLD Unavailable Unavailable ARNOLD TRINA, ARNOLD Unavailable Unavailable TRINA BEINEKE JUNE, BEINEKE Unavailable Unavailable JUNE BESSON TERESA, BESSON Unavailable Unavailable TERESA MILLARD ALL, MILLARD ALL Unavailable Unavailable JUDY MAC, JUDY Unavailable Unavailable [facility] Unavailable Unavailable SERVICE, [facility] Unavailable Unavailable SERVICE, [facility] Unavailable Unavailable [facility] MANISH CHELA, Unavailable Unavailable MANISH CHELA [facility], Unavailable Unavailable [facility] Unavailable Unavailable TRANSPORTATION SER, [facility] GUILIANI LATONIA, Unavailable Unavailable GUILIANI LATONIA [facility] Unavailable Unavailable INC, [facility] Unavailable Unavailable HOSPITAL P, [facility], Unavailable Unavailable [facility]available Unavailable IMAGING [facility], [facility] Un[facility], [facility] Unavailable Unavailable [...] MIHAI, [facility], Unavailable Unavailable [facility] ANGEL TIM Unavailable Unavailable 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 FOR, WALKER Unavailable Unavailable FOR Purpose Continuity of Care Document - 02-25-2015 through 2016 Problems Code Diagnosis DOS Provider Status G10 H[place]TINGTONS 07-26-2017 [facility] J309 ALLERGIC 07-26-2017 [facility] UNSPECIFIED [id number] OTHER LONG 07-10-2017 [facility] CURRENT DRUG THERAPY H77374 PAIN IN 06-11-2017 [facility] RIGHT ELBOW LLC B351 TINEA 05-27-2017 [facility] [place] P16188 PAIN IN 05-27-2017 [facility] [place] T73604 PAIN IN 05-27-2017 [facility] LEFT TOES [facility]ARE POD[facility] [place] M6281 MUSCLE 02-25-2017 [facility] GENERAL[facility] R4182 ALTERED 09-26-2016 [facility] STATUS [facility] UNSPECIFIED E870 HYPEROSMOLA 05-16-2016 [facility] HYPERNATREM ASSOCIATES IA T34585 PAIN IN 05-15-2016 [facility] LEFT KNEE LLC R918 OTHER 05-08-2016 [facility] NONSPECIFIC MEDICAL ABNORMAL [facility]AGING ASS FINDING OF LUNG FIELD E46 UNSPECIFIED 05-07-2016 [facility] P ORIE MALNUTRITIO N J189 PNEUMONIA 05-07-2016 [facility] P R0989 OTH SPEC SX 05-07-2016 [place] & SIGNS [facility]ICAL INVLV THE IMAGING ASS CIRC & RESP SYS R509 FEVER 05-07-2016 [facility] UNSPECIFIED [facility]YSICIANS, PLLC R58 HEMORRHAGE 05-07-2016 [facility] NOT [facility]BUL[facility] ELSEWHERE SERVICE CLASSIFIED R64 CACHEXIA 05-07-2016 [facility] Z681 BODY MASS 05-07-2016 [facility] INDEX 19.9 [facility] OR LESS INC ADULT R69 ILLNESS 04-12-2016 [facility] UNSPECIFIED TRANSPORTAT ION SER Z9689 PRESENCE OF 04-12-2016 [facility] OTHER [facility] SPECIFIED [facility] FUNCTIONAL IMPLANTS K219 GASTRO-ESOP 03-22-2016 [facility] DISEASE WITHOUT ESOPHAGITIS R1310 DYSPHAGIA 03-22-2016 [facility] Z4542 ENCOUNTER 03-22-2016 [place] [facility] MANAGEMENT NEUROPACEMA KER J690 PNEUMONITIS 02-03-2016 [facility] DUE TO LLC INHALATION OF FOOD AND VOMIT H5213 MYOPIA 01-30-2016 [facility] H524 PRESBYOPIA 01-30-2016 [facility] PLL Z4549 ENCOUNTER 01-19-2016 [facility] MGMT OTH IMPLANTED NS DEVICE Z9889 OTHER 01-19-2016 [facility] POSTPROCEDU RAL STATES R262 DIFFICULTY 10-13-2015 [facility] NOT ELSEWHERE CLASSIFIED R51 HEADACHE 10-12-2015 [facility] [id number] CONTUSION 10-12-2015 [facility] OTHER PART [facility] OF HEAD INC INITIAL ENCOUNTER L56JKNY UNSPECIFIED 10-12-2015 [facility] INITIAL SERVICE ENCOUNTER R8290 UNSPECIFIED 09-30-2015 [facility] ABNORMAL HEALTH FINDINGS IN ASSOCIATES URINE 04496 ABDOMINAL 08-16-2015 COMM[facility]ITY PAIN, ANESTH OF UNSPECIFIED THE BLUE SITE 92563 ABDOMINAL 08-16-2015 [facility] PAIN, [facility] EPIGASTRIC GROUP 53614 UNSPECIFIED 08-12-2015 [facility] N 5920 CALCULUS OF 08-12-2015 [facility] 63256 NAUSEA 08-12-2015 [facility] 56146 ABDOMINAL 08-12-2015 [facility] PAIN, [facility] PERIUMBILIC INC 08302 ABDOMINAL 08-12-2015 [place] PAIN OTHER MEDICAL SPECIFIED IMAGING ASS SITE 63627 ABDOMINAL 08-11-2015 [facility] PAIN, [facility] GENERALIZED INC 93990 08-11-2015 [facility] TRANSPORTAT ION SER 56412 SHORTNESS 08-01-2015 [facility] OF BREATH LLC 3334 HUNTINGTONS 07-26-2015 [facility] V762 SCREENING 07-08-2015 [facility] MALIGNANT NEOPLASM OF THE CERVIX 9962 [facility] COMP 03-30-2015 [facility] SYSTEM DEVICE IMPLANT&GRA FT V5302 NEUROPACEMA 03-30-2015 [facility] 4779 ALLERGIC 03-22-2015 [facility] CAUSE UNSPECIFIED 21061 ESOPHAGEAL 03-22-2015 [facility] REFLUX [facility] 02590 ATROPHIC 03-22-2015 [facility] GASTRITIS [facility] WITHOUT MENTION OF HEMORRHAGE 39248 OTHER SPEC 03-22-2015 [facility] WITHOUT MENTION HEMORRHAGE 31588 LOSS OF 03-22-2015 [facility] 17406 DIARRHEA 03-22-2015 [facility] V4589 OTHER 03-10-2015 [facility] POSTSFORMERLY [facility] L STATUS OTHER V719 OBSERVATION 03-10-2015 [facility] FOR SERV UNSPECIFIED [facility] SUSPECTED CONDITION 29034 DYSPHAGIA 03-09-2015 [place] UNSPECIFIED [facility] IMAGING ASS Medications Na ND [...] 0 RE 18 FT 41 16 17 MA EN 0 PH CH ER AR AE MA L 25 CY S 0 MG LL C SO FT GE L SE 00 03 10 0 60 30 ME 15 GA Ac NE 53 -1 -2 0. D 16 IN ti XO 64 9- 0- 00 CA 20 EY ve N- 08 20 20 0 RE 13 S 60 17 17 MA TA 1 PH CH BL AR AE ET MA L CY S LL C LO 00 06 10 0 30 30 ME 15 GA Ac RA 78 -1 -1 0. D 12 IN ti TA 15 7- 7- 00 CA 61 EY ve DI 07 20 20 0 RE 03 NE 70 17 17 MA 1 PH CH 10 AR AE MA L MG CY S TA LL BL C ET TA 00 03 10 0 30 30 ME 15 GA Ac B- 90 -1 -1 0. D 12 IN ti A- 40 9- 6- 00 CA 27 EY ve 53 20 20 0 RE 04 TE 08 17 17 MA 0 PH CH TA AR AE BL MA L ET CY S LL C RE 53 07 10 0 11 10 ME 15 GA Ac ME 32 -2 -0 30 D 08 IN ti DY 90 5- 7- .0 CA 90 EY ve 16 20 20 00 RE 50 CA 54 17 17 MA LA 4 PH CH ZI AR AE ME MA L CY S TN OT LL EC C T PA ST E ME 00 04 09 0 30 30 ME 14 GA Ac LA 90 -0 -2 0. D 99 IN ti TO 45 2- 3- 00 CA 65 EY ve NI 18 20 20 0 RE 64 N 25 17 17 MA 3 2 PH CH MG AR AE MA L TA CY S BL ET LL C SE 00 03 09 0 60 30 ME 14 GA Ac NE 53 -1 -2 0. D 99 IN ti XO 64 9- 2- 00 CA 01 EY ve N- 08 20 20 0 RE 49 S 60 17 17 MA TA 1 PH CH BL AR AE ET MA L CY S LL C ST 00 11 09 0 30 30 ME 14 GA Ac OO 53 -0 -2 0. D 97 IN ti L 61 2- 0- 00 CA 27 EY ve SO 06 20 20 0 RE 11 FT 41 16 17 MA EN 0 PH CH ER AR AE MA L 25 CY S 0 MG LL C SO FT GE L LO 00 06 09 0 30 30 ME 14 GA Ac RA 78 -1 -1 0. D 98 IN ti TA 15 7- 9- 00 CA 35 EY ve DI 07 20 20 0 RE 58 NE 70 17 17 MA 1 PH CH 10 AR AE MA L MG CY S TA LL BL C ET TA 00 03 09 0 30 30 ME 14 GA Ac B- 90 -1 -1 0. D 97 IN ti A- 40 9- 8- 00 CA 40 EY ve 53 20 20 0 RE 84 TE 08 17 17 MA 0 PH CH TA AR AE BL MA L ET CY S LL C LO 00 06 08 0 30 30 ME 14 GA Ac RA 78 -1 -2 0. D 82 IN ti TA 15 7 5- CA 83 EY ve DI 07 20 20 0 RE 92 NE 70 17 17 MA 1 PH CH 10 AR AE MA L MG CY S TA LL BL C ET ME 00 04 08 0 30 30 ME 14 GA Ac LA 90 -0 -2 0. D 82 IN ti TO 45 2- 5- 00 CA 84 EY ve NI 18 20 20 0 RE 00 N 25 17 17 MA 3 2 PH CH MG AR AE MA L TA CY S BL ET LL C SE 00 03 08 0 60 30 ME 14 GA Ac NE 53 -1 -2 0. D 81 IN ti XO 64 9- 3- 00 CA 13 EY ve N- 08 20 20 0 RE 71 S 60 17 17 MA TA 1 PH CH BL AR AE ET MA L CY S LL C TA 00 03 08 0 30 30 ME 14 GA Ac B- 90 -1 -2 0. D 80 IN ti A- 40 9- 1- 00 CA 08 EY ve 53 20 20 0 RE 41 TE 08 17 17 MA 0 PH CH TA AR AE BL MA L ET CY S LL C ST 00 11 07 0 30 30 ME 14 GA Ac OO 53 -0 -3 0. D 68 IN ti L 61 2- 1- 00 CA 05 EY ve SO 06 20 20 0 RE 89 FT 41 16 17 MA EN 0 PH CH ER AR AE MA L 25 CY S 0 MG LL C SO FT GE L LO 00 06 07 0 30 30 ME 14 GA Ac RA 78 -1 -2 0. D 66 IN ti TA 15 7- 8- 00 CA 70 EY ve DI 07 20 20 0 RE 12 NE 70 17 17 MA 1 PH CH 10 AR AE MA L MG CY S TA LL BL C ET ME 00 04 07 0 30 30 ME 14 GA Ac LA 90 -0 -2 0. D 66 IN ti TO 45 2- 8- 00 CA 70 EY ve NI 18 20 20 0 RE 20 N 25 17 17 MA 3 2 PH CH MG AR AE MA L TA CY S BL ET LL C RE 53 07 07 0 11 10 ME 14 GA Ac ME 32 -2 -2 30 D 66 IN ti DY 90 5- 5- .0 CA 34 EY ve 16 20 20 00 RE 44 CA 54 17 17 MA LA 4 PH CH ZI AR AE ME MA L CY S TN OT LL EC C T PA ST E SE 00 03 07 0 60 30 ME 14 GA Ac NE 53 -1 -2 0. D 64 IN ti XO 64 9- 4- 00 CA 20 EY ve N- 08 20 20 0 RE 99 S 60 17 17 MA TA 1 PH CH BL AR AE ET MA L CY S LL C TA 00 03 07 0 30 30 ME 14 GA Ac B- 90 -1 -2 0. D 65 IN ti A- 40 9- 4- 00 CA 17 EY ve 53 20 20 0 RE 52 TE 08 17 17 MA 0 PH CH TA AR AE BL MA L ET CY S LL C ST 00 11 07 0 30 30 ME 14 GA Ac OO 53 -0 -0 0. D 50 IN ti L 61 2- 3- 00 CA 60 EY ve SO 06 20 20 0 RE 20 FT 41 16 17 MA EN 0 PH CH ER AR AE MA L 25 CY S 0 MG LL C SO FT GE L ME 00 04 07 0 30 30 ME 14 GA Ac LA 90 -0 -0 0. D 50 IN ti TO 45 2- 1- 00 CA 60 EY ve NI 18 20 20 0 RE 31 N 25 17 17 MA 3 2 PH CH MG AR AE MA L TA CY S BL ET LL C LO 00 06 07 0 30 30 ME 14 GA Ac RA 78 -1 -0 0. D 50 IN ti TA 15 7- 1- 00 CA 60 EY ve DI 07 20 20 0 RE 12 NE 70 17 17 MA 1 PH CH 10 AR AE MA L MG CY S TA LL BL C ET TA 00 03 06 0 30 30 ME 14 GA Ac B- 90 -1 -2 0. D 45 IN ti A- 40 9- 6- 00 CA 93 EY ve 53 20 20 0 RE 04 TE 08 17 17 MA 0 PH CH TA AR AE BL MA L ET CY S LL C SE 00 03 06 0 60 30 ME 14 GA Ac NE 53 -1 -2 0. D 47 IN ti XO 64 9- 6- 00 CA 35 EY ve N- 08 20 20 0 RE 41 S 60 17 17 MA TA 1 PH CH BL AR AE ET MA L CY S LL C ST 00 11 06 0 14 14 ME 14 GA Ac OO 53 -0 -2 0. D 42 IN ti L 61 2- 0- 00 CA 50 EY ve SO 06 20 20 0 RE 63 FT 41 16 17 MA EN 0 PH CH ER AR AE MA L 25 CY S 0 MG LL C SO FT GE L ME 00 04 06 0 14 14 ME 14 GA Ac LA 90 -0 -1 0. D 41 IN ti TO 45 2- 9- 00 CA 58 EY ve NI 18 20 20 0 RE 47 N 25 17 17 MA 3 2 PH CH MG AR AE MA L TA CY S BL ET LL C LO 00 06 06 0 14 14 ME 14 GA Ac RA 78 -1 -1 0. D 41 IN ti TA 15 7- 9- 00 CA 58 EY ve DI 07 20 20 0 RE 41 NE 70 17 17 MA 1 PH CH 10 AR AE MA [...] AR AR ME MA D CY W TN OT LL EC C T PA ST [...] Procedure DOS Code Location Performer Comment [place] 41753 [facility] ECG W/LEAST 12 LDS TRCG ONLY W/O I&R TRANS R0070 [facility] PRTBL [facility] X-RAY EQP&PERS PEDRO/NRS PEDRO-TRIP 1 PT SET-UP Q0092 [facility] PORTABLE [facility] X-RAY EQUIPMENT RADEX 64708 [facility] ELBOW [address] [facility] VIEWS DEBRIDEME 71906 SPECIAL SKRIP JR. NT NAIL 7 CARE ANY PODIATRY METHOD OF MIHAI 6/> DEBRIDEME 82808 SPECIAL SKRIP JR. NT NAIL 7 CARE ANY PODIATRY METHOD OF [place]HAI 6/> SBSQ 36709 [facility] 7 FACILITY CARE/DAY E/M STABLE 10 MIN TRAVEL 1 P9603 [facility] HEALTH NEC ENGINEERING DESIGN SUPERVISOR ASSOCIATE SPEC; S S PRORAT ACTL MILE BLOOD 95228 [facility] COUNT 7 HEALTH HEALTH COMPLETE ASSOCIATE ASSOCIATE AUTOMATED S S EASTON V G0471 [place] [address] HEALTH HEALTH PRESS SET UP/URN ASSOCIATE ASSOCIATE REED CATH S S IND SNF/LAB BHALF SENIOR ANALYST DEVELOPER COMPREHEN [address] HEALTH METABOLIC ASSOCIATE ASSOCIATE PANEL S S EASTON V G0471 [place] [address] HEALTH HEALTH PRESS SET UP/URN ASSOCIATE ASSOCIATE SMP CATH S S IND SNF/LAB BHALF SENIOR ANALYST DEVELOPER DRUG [address] [facility] [address] VALPROIC ASSOCIATE ASSOCIATE ELENA S S CETIC ACID TOTAL TRAVEL [address] NEC ENGINEERING DESIGN SUPERVISOR ASSOCIATE SPEC; S S PRORAT ACTL MILE SBSQ 79311 [facility] 7 FACILITY CARE/DAY E/M STABLE 10 MIN TRAVEL [address] NEC ENGINEERING DESIGN SUPERVISOR ASSOCIATE SPEC; S S PRORAT ACTL MILE DRUG 50228 [facility] ASSAY [address] [place] [address] VALPROIC ASSOCIATE ASSOCIATE ELENA Walker S CETIC ACID TOTAL EASTON V G[address] PRESS SET UP/URN ASSOCIATE ASSOCIATE REED CATH S S IND SNF/LAB BHALF [facility] ECG 05557 [facility] 7 [facility] LLC ECG W/LEAST 12 LDS TRCG ONLY W/O I&R SBSQ 95292 [facility] 7 FACILITY CARE/DAY E/M STABLE 10 MIN DEBRIDEME 93780 SPECIAL SKRIP JR. NT NAIL 7 CARE ANY PODIATRY METHOD OF MIHAI 6/> E/M 85231 LIZ MANJULARADHA [facility] 7 NURSING FACILITY ASSESS STABLE 30 MIN SBSQ 14458 [facility] 6 TRINA TRINA FACILITY CARE/DAY E/M STABLE 10 MIN SBSQ 90353 [facility] SAULT NURSING 6 TRINA TRINA FACILITY CARE/DAY E/M STABLE 10 MIN URNLS DIP [address] STICK/TAB ASSOCIATE ASSOCIATE CRISTY Walker S REAGENT AUTO MICROSCOP Y CULTURE [address] HEALTH ASSOCIATE ASSOCIATE QUANTTATI S S VE COLONY COUNT URINE DEBRIDEME 44820 SPECIAL SKRIP JR. NT NAIL 6 CARE TRINA ANY PODIATRY METHOD OF MIHAI /> SBSQ 30164 [facility] 6 TRINA TRINA FACILITY CARE/DAY E/M STABLE 10 MIN TRAVEL [address] NEC ENGINEERING DESIGN SUPERVISOR ASSOCIATE SPEC; S S PRORAT ACTL MILE [facility]ASTON V G0471 [facility] HE[facility] HEALTH PRESS SET UP/URN ASSOCIATE ASSOCIATE SMP CATH S S IND SNF/LAB BHALF SENIOR ANALYST DEVELOPER COMPREHEN [address] [place] [address] HEALTH HEALTH METABOLIC ASSOCIATE ASSOCIATE PANEL S S SBSQ 69856 [facility] 6 TRINA TRINA FACILITY CARE/DAY E/M STABLE 10 MIN SBSQ 58921 [facility] 6 TRINA TRINA FACILITY CARE/DAY E/M STABLE 10 MIN ECG 67567 [facility] 6 [facility] ECG W/LEAST 12 LDS TRCG ONLY W/O I&R DEBRIDEME 39823 SPECIAL GRETCHEN INMAN NT NAIL 6 CARE TRINA ANY PODIATRY METHOD OF MIHAI 6/> SBSQ 19703 [facility] 6 TRINA TRINA FACILITY CARE/DAY E/M STABLE 10 MIN TRAVEL 1 P9603 [place] [address] HEALTH HEALTH NEC ENGINEERING DESIGN SUPERVISOR ASSOCIATE SPEC; S S PRORAT ACTL MILE BASIC 65058 [facility] METABOLIC HEALTH HEALTH PANEL ASSOCIATE ASSOCIATE CALCIUM S S TOTAL EASTON V G0471 [facility] PRESS SET UP/URN ASSOCIATE ASSOCIATE REED CATH S S IND SNF/LAB BHALF SENIOR ANALYST DEVELOPER RADIOLOGI 49375 [facility] C [facility] EXAMINATI ON KNEE 1/2 VIEWS SET-UP Q0092 [facility] PORTABLE [facility] X-RAY EQUIPMENT TRANS R0070 [facility] PRTBL [facility] X-RAY EQP&PERS PEDRO/NRS PEDRO-TRIP 1 PT INITIAL 03898 [facility] 6 TRINA TRINA FACILITY CARE/DAY 25 MINUTES RADIOLOGI 74494 [place] [facility] C EXAM 6 MEDICAL CHELA CHEST 2 IMAGING VIEWS ASS FRONTAL&L ATERAL RADIOLOGI 89664 [place] MILLARD ALL C 6 MEDICAL EXAMINATI IMAGING ON CHEST ASS SINGLE VIEW FRONTAL AMB A0427 [facility] SERVICE 6 AMBULANCE AMBULANCE ALS SERVICE SERVICE EMERGENCY TRANSPORT LEVEL 1 GROUND A0425 [facility] AMBULANCE PER SERVICE SERVICE STATUTE [facility] ECG 60276 [facility] KUMAR ROUTINE 6 [facility] W/LEAST P 12 LDS I&R ONLY SBSQ 32430 [facility] 6 TRINA TRINA FACILITY CARE/DAY E/M STABLE 10 MIN ELEC ZULEIMA 06784 [facility] 6 Y Y PLS GEN HOSPITAL HOSPITAL CPLX DP BRN 1ST HR HOSPITAL G0463 [facility] 6 Y Y T [facility] HOSPITAL VISIT ASSESS & MGMT PT NONEMERGE A0130 [facility] FEDERATED NCY 6 TRANSPORT TRANSPORT TRANSPORT ATION: ATION SER ATION SER WHEELYURIDIAI Liv VAN SBSQ 25229 [facility] SAULT NURSING 6 TRINA TRINA FACILITY CARE/DAY E/M STABLE 10 MIN HOSPITAL G0463 [facility] 6 Y Y T [facility] HOSPITAL VISIT ASSESS & MGMT PT ELEC ZULEIMA 05666 G[facility] VILLATIM 6 MEDICAL 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 PLS GEN SERV CPLX DP FOUNDATIO BRN 1ST N HR DEBRIDEME 15900 [facility] SKRIP JR. NT NAIL 6 CARE TRINA ANY PODIATRY METHOD OF MIHAI 6/> MOTION 11450 [facility] FLUOR 6 [facility] EVAL INC INC SWLNG FUNCJ C/V REC SWALLOWIN 09229 YOSVANY Alvarez FUNCJ 6 MEDICAL JUNE W/CINERAD IMAGING IOGRAPY/V ASS IDRADIOG SBSQ 88968 [facility] SAULT NURSING 6 TRINA TRINA FACILITY CARE/DAY E/M STABLE 10 MIN HOSPITAL G0463 [facility] 6 Y Y T [facility] HOSPITAL VISIT ASSESS & MGMT PT NONEMERGE A0130 FEDERATED FEDERATED NCY 6 TRANSPORT TRANSPORT TRANSPORT ATION: ATION SER ATION SER DANIELLA Peck VAN ELEC ZULEIMA 79444 GISELA SILVA NSTIM 6 MEDICAL 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 PLS GEN SERV SMPL FOUNDATIO SC/PERPH N W/PRGRMG SET-UP Q0092 [facility] PORT[facility] 6 LLC LLC X-RAY EQUIPMENT RADIOLOGI 87512 [facility] C 6 LLC LLC EXAMINATI ON CHEST SINGLE VIEW FRONTAL TRANS R0070 [facility] PRTBL 6 LLC LLC X-RAY EQP&PERS PEDRO/NRS PEDRO-TRIP 1 PT DETERMINA 19359 [facility]EC JOSE ALBERTO TION 6 CONTRACT TAVO [facility]IV [facility] PLL OPHTH 97323 [facility] 6 CONTRACT TAVO XM&EVAL [facility] COMPRE PLL NEW PT 1/> VST SBSQ 78283 [facility] NURSING 6 [facility] FACILITY CARE/DAY E/M STABLE 10 MIN HOSPITAL G0463 [facility] 6 Y Y T [facility] HOSPITAL VISIT ASSESS & MGMT PT ELEC ZULEIMA 12548 [facility] 6 Y Y [facility] SMPL SC/PERPH W/PRGRMG ELEC ZULEIMA 08820 [facility] 6 MEDICAL 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 PLS GEN SERV SMPL FOUNDATIO SC/PERPH N W/PRGRMG ELEC ZULEIMA 25917 [facility] 6 Y Y [facility] CPLX DP BRN 1ST HR HOSPITAL G0463 [facility] 6 Y Y T [facility] HOSPITAL VISIT ASSESS & MGMT PT NONEMERGE A0130 FEDERATED FEDERATED NCY 6 TRANSPORT TRANSPORT TRANSPORT ATION: ATION SER ATION SER DANIELLA ORTIZ SBSQ 47761 [facility] 6 [facility] FACILITY CARE/DAY E/M STABLE 10 MIN DEBRIDEME 94599 SPECIAL SKRIP JR. NT NAIL 6 CARE TRINA ANY PODIATRY METHOD OF MIHAI 6/> ECG 26403 [facility] 6 [facility] LLC ECG W/LEAST 12 LDS TRCG ONLY W/O I&R E/M 82509 [facility] ANNUAL 6 [facility] NURSING FACILITY ASSESS STABLE 30 MIN SBSQ 12066 [facility] 5 [facility] FACILITY CARE/DAY E/M STABLE 10 MIN NONEMERGE A0130 FEDERATED FEDERATED NCY 5 TRANSPORT TRANSPORT TRANSPORT ATION: ATION SER ATION SER SKYLERI R [facility] G0463 [facility] 5 Y Y T [facility] HOSPITAL VISIT ASSESS & MGMT PT ELEC ZULEIMA 50049 [facility] 5 Y Y PLS [facility] HOSPITAL CPLX DP BRN 1ST HR AMB A0427 [facility] SERVICE 5 AMBULANCE AMBULANCE ALS SERVICE SERVICE EMERGENCY TRANSPORT LEVEL 1 COMPREHEN 99491 [facility] SIVE 5 [facility] METABOLIC INC INC PANEL INJECTION J2405 [facility] CAMEJO 5 [facility] ONDANSETR INC [place] ON HCL [place] [address] [place] [address] [facility] C[facility] HEAD/BRAI 5 [facility] N W/O INC INC CONTRAST MATERIAL GROUND A0425 [facility]ULANCE AMBULANCE PER SERVICE SERVICE STATUTE MILE THER 93567 [facility] PROPH/DX 5 [facility] NJX IV INC INC PUSH SINGLE/1S T SBST/DRUG BLOOD 41151 [facility] COUNT 5 [facility] COMPLETE INC INC AUTO&AUTO DIFRNTL WBC URNLS DIP 91794 [facility] CAMEJO 5 [facility] STICK/TAB INC INC LET REAGENT AUTO MICROSCOP Y THERAPEUT 33843 [facility] IC 5 [facility] INJECTION INC INC IV PUSH EACH NEW DRUG URNLS DIP 22154 [facility] 5 HEALTH HEALTH STICK/TAB ASSOCIATE ASSOCIATE LET S S REAGENT AUTO MICROSCOP Y CULTURE 16922 [facility] BACTERIAL 5 HEALTH HEALTH ASSOCIATE ASSOCIATE QUANTTATI S S VE COLONY COUNT URINE HOSPITAL G0463 [facility] 5 Y Y T [facility] HOSPITAL VISIT ASSESS & MGMT PT HOSPITAL G0463 [facility] 5 Y Y T [facility] HOSPITAL VISIT ASSESS & MGMT PT ELEC ZULEIMA 24435 [facility] 5 Y MAC PLS [facility] CPLX DP BRN 1ST HR NONEMERGE A0130 FEDERATED FEDERATED NCY 5 TRANSPORT TRANSPORT TRANSPORT ATION: ATION SER ATION SER DANIELLA ORTIZ SBSQ 45841 [facility] 5 [facility]INA FACILITY CARE/DAY E/M STABLE 10 MIN SBSQ 49440 [facility] 5 [facility] FAC[facility] CARE/DAY E/M STABLE 10 MIN GONADOTRO 75311 [facility] PIN 5 [facility] [address] [facility] INFUSION 5 [facility] THERAPY/P INC INC ROPHYLAXI S /DX 1ST TO 1 [place] [address] [facility] INFUSION 5 [facility] THERAPY INC INC PROPHYLAX IS/DX EA HOUR ANES 47906 [facility] UPPER GI 5 ANESTH SHE ENDOSCOPY OF THE PROXIMAL BLUE TO DUODENUM ESOPHAGOG 95549 [facility] INGA ASTRODUOD 5 PHYSICIAN CAM [place]OSCOPY [place] [address] [facility] ALL ABDOMEN & 5 MEDICAL PELVIS IMAGING W/CONTRAS ASS T MATERIAL LOCM Q9967 [facility]ASH[facility]JO [phone] [facility] MG/ML INC INC IODINE CONCENTRA TION PER ML COLLECTIO 49468 [facility] N VENOUS 5 [facility] BLOOD INC INC VENIPUNCT URE BASIC 90318 [facility] METABOLIC 5 [facility] PANEL INC INC CALCIUM TOTAL NONEMERG A0120 FEDERATED FEDERATED TRNSPRT: 5 [facility]I-[facility] TRANSPORT TRANSPORT MTN ATION SER ATION SER AREA/OTH SYS HEPATIC 17143 [facility] FUNCTION 5 [facility] PANEL INC INC BLOOD 32763 [facility] COUNT 5 [facility] COMPLETE INC INC AUTO&AUTO DIFRNTL WBC TRANS R0070 [facility] PRTBL [facility] X-RAY EQP&PERS PEDRO/NRS PEDRO-TRIP 1 PT SET-UP Q0092 [facility] PORTABLE 5 [facility] X-RAY EQUIPMENT RADIOLOGI 61193 [facility] C EXAM 5 [facility] CHEST 2 VIEWS FRONTAL&L ATERAL SBSQ 69289 [facility] CARE/DAY E/M STABLE 10 MIN SCR G0145 [facility] CERV/VAG SCR AUTO&MNL RSCR PHYS URINE 13377 [facility] 5 Y Y TEST [facility] VISUAL COLOR CMPRSN METHS RINGERS J7120 [facility] LACTATE 5 Y Y INFUSION [facility] UP TO 1000 CC ANES 58001 GISELA CAMERON [facility]REM[facility] ES ANT TRUNK & PERINEUM NOS INSJ/RPLC 80869 [facility] MT 5 Y Y CRANIAL [facility] NEUROSTIM GENER 2/> ELTRDS GENERATOR C1767 [facility] 5 Y Y NEUROSTIM [facility] ULATOR NONRECHAR GEABLE COLLECTIO 53115 [facility] N VENOUS 5 Y Y BLOOD [facility] VENIPUNCT URE THROMBOPL 39516 [facility] ASTIN 5 Y Y TIME [facility] PARTIAL PLASMA/WH OLE BLOOD PROTHROMB 73311 [facility] IN TIME 5 Y Y [facility] BASIC [address]4728 [facility] METABOLIC 5 Y Y PANEL [facility] CALCIUM TOTAL RADIOLOGI 33618 [facility] C EXAM 5 Y Y CHEST 2 [facility] VIEWS FRONTAL&L ATERAL ECG 07355 [facility] [facility] ROUTINE 5 Y Y ECG [facility] W/LEAST 12 LDS TRCG ONLY W/O I&R URNLS DIP 39496 [facility] 5 Y Y STICK/TAB [facility] LET REAGENT AUTO MICROSCOP Y BLOOD 58715 [facility] COUNT 5 Y Y COMPLETE [facility] AUTOMATED SWALLOWIN 33360 YOSVANY ÁLVAREZ 5 MEDICAL CHELA W/CINERAD IMAGING IOGRAPY/V ASS IDRADIOG Encounters Encounter Start End Date Code Location Performer Type Date [facility] INPATIENT 7 7 [facility] IN[facility] 7 7 [facility] 7 7 [facility] 7 7 [facility] 7 [facility] 7 7 [facility] INPATIENT INC EMERGENCY [id number] RAJIV LEE DEPT 6 6 PHYSICIAN FOR VISIT S, PLLC HIGH SEVERITY& THREAT FUNJ [facility] 6 6 [facility] E HOSPITAL UNIVERSIT - 6 6 Y [facility] OFF[facility] [id number] GISELA SILVA [facility] 6 6 MEDICAL 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 T VISIT SERV 15 FOUNDATIO MINUTES N [facility] 6 6 [facility] HOSPITAL UNIVERSIT - 6 6 Y [facility] OFF[facility] 12494 GISELA [facility] 6 6 MEDICAL 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 T VISIT SERV 15 FOUNDATIO MINUTES N HOSPITAL BASH[facility] - 6 6 [facility] 6 6 [facility] UNIVERSIT [facility] 6 6 Y [facility] T OFFICE 39637 G[facility]ELA [facility] 6 6 MEDICAL 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 T VISIT SERV 15 FOUNDATIO MINUTES N SPECIAL [place] [facility] 6 6 [facility] UNIVERSIT [facility] 6 6 Y [facility] OFF[facility] 27637 [facility] 6 6 Y T VISIT 5 HOSPITAL MINUTES [facility] 6 6 [facility] SPECIAL [facility] 6 6 [facility] SPECIAL [facility] 5 5 [facility] UNIVERSIT - 5 5 [facility] 5 5 [facility] T EMERGENCY [id number] [facility] 5 5 MEM HOSP DEPARTMEN INC T VISIT [facility]IGH/URGE NT [facility] 5 5 [facility] 5 5 Y [facility] T SPECIAL [facility] 5 5 [facility] - OTHER E [facility] 5 5 [facility] - OTHER E HOSPITAL B[facility] - 5 5 [facility] OUTPATIEN [facility] - 5 5 [facility] OUTPATIEN INC [facility] 5 5 [facility] OUTPATIEN [facility] T OFFICE 09043 [facility] 5 5 PHYSICIAN CAM T NEW 30 S GROUP MINUTES SPECIAL [place] [facility] 5 5 [facility] UN[facility] - 5 5 Y [facility] OFF[facility] 87233 [facility] 5 5 Y T VISIT 5 [facility] UNIVERSIT - 5 5 [facility] 5 5 Y [facility] OFFICE 82879 [facility] Y T VISIT 5 [facility] OFFICE 52233 [facility] 5 5 Y T VISIT HOSPITAL 40 MINUTES OFFICE 08429 [facility] 5 5 NURSE LATONIA T VISIT PRACTITIO [address] [facility] UNIVERSIT - 5 5 Y [facility] T
--- OUTSIDE RECORDS SUMMARY | 2017-09-16 15:03 | External Medical Summary Rpt | CCD ---
Demographics Preferred Language Kyrgyz Marital Status Unknown Spiritism Affiliation Unknown Race Unknown Ethnic Group Unknown Author Author , [facility] Organization [facility] Address Unknown Phone Immunization Unable to retrieve immunization data due to connection failure with Immunization Registry. Please try again later.
--- OUTSIDE RECORDS SUMMARY | 2017-09-16 15:03 | External Medical Summary Rpt | CCD ---
Demographics Preferred Language Mongolian Marital Status Unknown Spiritism Affiliation Unknown Race Unknown Ethnic Group Unknown Author Author , [facility] Address Unknown Phone Immunization Unable to retrieve immunization data due to connection failure with Immunization Registry. Please try again later.
== END 2017-09-16 14:34 | disposition home or self-care (01) ==
LOC: ER 14:14
PROC: 0HQ0XZZ Repair Scalp Skin, External Approach (ICD-10-PCS; principal; 2017-09-16)
DX: S01.01XA Laceration without foreign body of scalp, initial encounter (principal); W01.198A Fall on same level from slipping, tripping and stumbling with subsequent striking against other object, initial encounter; Y92.69 Other specified industrial and construction area as the place of occurrence of the external cause; Y99.0 Civilian activity done for income or pay; K21.9 Gastro-esophageal reflux disease without esophagitis; Z88.6 Allergy status to analgesic agent